=== PATIENT | male | born 1945 | race Caucasian/White ===

== ENCOUNTER 2018-09-26 08:19 | Inpatient (IN) ==
--- NOTE | 2018-09-26 09:28 | History & Physical Bridge Note ---
Date of Service September 26, 2018 History & Physical Bridge Note I have examined the patient, reviewed the History & Physical and in the interval since the performance of the History & Physical I have noted the following changes of clinical significance: no changes noted
--- NOTE | 2018-09-26 09:29 | Pre Anesthesia Assessment ---
Date of Service September 26, 2018 Pre Sedation Assessment Vital Signs Temp Pulse Resp BP Pulse Ox 09/26/18 09:11 36.4 C L 61 18 114/71 94 Cardiovascular RRR, no murmur, no edema + peripheral pulses normal Respiratory normal respiratory effort, lungs clear to auscultation Pre-Sedation Airway Assessment Smoking Status: Former smoker Hx Sleep Apnea: No Hx Difficult Intubation: No Short, Thick Neck: No Thyromental Distance: > or= 3.5 Finger Breadths Oral Cavity: + WNL Mallampati Class: II ASA: ASA2 Notes The planned sedation has been discussed with the patient. Informed Consent was obtained. I have identified the patient, determined the appropriateness of sedation and have assessed the patient immediately prior to the procedure. All medicine(s) and interventions are by my order.
[2018-09-26] MEDS ORDERED: SODIUM CHLORIDE 0.9% 1000ML 1,000 ML IV SCH (09:30)
[2018-09-26] MEDS ORDERED: MIDAZOLAM HCL 1 MG/ML 2ML VIAL IV STA (10:56)
[2018-09-26] MEDS ORDERED: LIDOCAINE 4% INH SOLN 4 ML BTL INFIL STA (10:56)
[2018-09-26] MEDS ORDERED: LEVALBUTEROL HCL 1.25 MG/3 ML NEB NEB STA (10:56)
[2018-09-26] MEDS ORDERED: LIDOCAINE HCL VISCOUS SOLN 2% 15 ML UDC EXT ONE (10:56)
[2018-09-26] MEDS ORDERED: OXYMETAZOLINE 0.05% 30 ML BTL ONE (10:56)
[2018-09-26] MEDS ORDERED: fentaNYL citrate 100 MCG/2 ML VIAL IV ONE (10:56)
[2018-09-26] MEDS ORDERED: LIDOCAINE HCL 2% (LOCAL) INJ 50 ML VIAL INFIL STA (10:56)
[2018-09-26] MEDS ORDERED: SODIUM CHLORIDE 0.9% 1,000 ML IV ONE (11:11)
--- NOTE | 2018-09-26 11:26 | Post Operative Brief Note ---
Immediate Post Op Note v1 Date of Surgery September 26, 2018 Pre & Post Diagnosis Operation Date: 09/26/18 09:00 Pre-Op Diagnosis: Pneumonia Post-Op Diagnosis: Pneumonia Procedure Operation Date: 09/26/18 09:00 Actual Procedures p Bronchoscopy Radiology(Bilateral) - Yovanny Viera MD Surgeon Yovanny Viera MD Mining Support Worker none Estimated Blood Loss 0 Findings Consistent with Post-Op Diagnosis pneumonitis Complications none Disposition Accompanied Patient To Recovery: No Overlapping Procedure I was present for: the critical portions of procedure. I was immediately available: during the entire case. Back up surgeon: was not required during procedure.
--- NOTE | 2018-09-26 11:26 | Post Anesthesia Assessment ---
Date of Service September 26, 2018 Post Sedation Assessment Vital Signs Temp Pulse Pulse Resp BP BP Pulse Ox 09/26/18 11:21 36.4 C L 58 L 20 104/60 99 09/26/18 11:05 56 L 18 96/59 L 97 09/26/18 11:00 56 L 18 95/53 L 97 09/26/18 10:55 55 L 18 88/54 L 99 09/26/18 10:50 60 16 100/72 97 09/26/18 10:45 55 L 16 107/70 98 09/26/18 10:40 59 L 18 150/82 H 98 09/26/18 10:30 60 18 139/88 98 09/26/18 09:11 36.4 C L 61 18 114/71 94 Recovery Score Activity: Moves 4 extremities Respiration: Deep Breath/Cough Circulation: +/-20% PreAnes Value Consciousness: Fully Awake Oxygen Saturation: O2 needed for >90% Post Anesthesia Score: 9 Discharge Sedation Level of Care: Higher Level of Care Post Sedation Plan On clinical assessment, the patient appears to have tolerated the sedation without complications. Patient is recovering as anticipated. Patient will continue to be monitored by nursing and may be discharged when meredith tion discharge criteria are met per below protocol. Upon Completions of procedure and additional 15 minutes continue every 5 minute vital signs and the P.A.R. score; then discharge to a Phase I or Fast Track to Phase II per the following guidelines: * Discharge Patient to appropriate Phase II area if PAR is 8 or greater or return to pre- procedure baseline. The post - procedure orders will be as directed. * If PAR score is less than 8 or not return to pre-procedure baseline then patient will follow Phase I monitoring till PAR is reached for Phase II. The Phase I may be done in procedure room or may call to secure a Phase I area. * If naloxone or flumazenil are used for reversal, hold in Phase I for continued monitoring from when last reversal dose was given for a minimum of 60 minutes or longer pending the nurse and/or physician discretion of patient condition before discharge to Phase II. Please call the Sedation Physician to re-evaluate and complete post-note for discharge to Phase II area. Do NOT discharge from procedure sedation or Phase 1 until post- sedation evaluation note is complete by procedure /sedation MD Sedation Discharge Instructions to be given to the patient at discharge to home.
--- NOTE | 2018-09-26 12:35 | Surgery Consultation ---
Date of Consultation September 26, 2018 Assessment & Plan (1) Shortness of breath: -pt. has abnormal CT scan with infiltrative changes noted most markedly on right side -discussed with Dr. Viera of pulmonary medicine -pt. had FOB earlier today and no clear etiology noted to explain abnormal CT scan or symptoms -we will proceed later today with RVATS and lung biopsy: -I discussed the risks, benefits and alternative with the patient nd his at bedside and they wish to proceed (I obtained consent from both the patient and his , as she is his POA and he received conscious sedation earlier for FOB) -risks include but are not limited to bleeding, infection, prolonged air leak, pneumothorax -benefits include obtaining a diagnosis -alternatives include continued medica therapy History of Present Illness Attending Physician: 73 year old male we are asked to see at the request of Dr Viera due to SOB. The pt. notes he has had worsening SOB for nearly 6 weeks. He notes no orthopnea, but feels more SOB with activity, but not at rest. No fevers, shakes, chills, or night sweats are noted. He notes a 6 pound weight loss over the past 4 weeks and notes his apatite is slightly decreased. He denies hemoptysis or hx. of DVT/PE. 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 He has been followed by Dr. Viera, and despite 2 courses of antibiotics, steroids, and the use of inhalers his symptoms continue to get worse. At the time of my interview and exam he was resting comfortably in bed. Allergies Allergy/AdvReac Type Severity Reaction Status Date / Time No Known Allergies Allergy Verified 09/26/18 08:58 Home Medications Home Medications Medication Instructions Recorded Confirmed Type Multi-Emmanuel 1 tab PO DAILY 09/22/18 09/26/18 History aspirin 81 mg PO DAILY 09/22/18 09/26/18 History atenolol 50 mg PO DAILY 09/22/18 09/26/18 History fluticasone furoate-vilanterol 1 inh INHALATION DAILY 09/22/18 09/26/18 History [Breo Ellipta] levothyroxine 100 mcg PO DAILY 09/22/18 09/26/18 History lisinopril-hydrochlorothiazide 1 tab PO DAILY 09/22/18 09/26/18 History simvastatin 20 mg PO HS 09/22/18 09/26/18 History triamcinolone acetonide [Nasacort] 2 spray INTRANASAL DAILY 09/22/18 09/26/18 History ipratropium-albuterol 3 ml INHALATION QID 09/26/18 09/26/18 History Patient History Medical History HTN (hypertension) (Acute) High cholesterol (Acute) Surgical History H/O arthroscopic knee surgery (Acute) right knee History of tonsillectomy (Acute) History of bilateral cataract extraction (Acute) History of carpal tunnel release of both wrists (Acute) Social History Preferred Language: Surinamese Communication Ability: Effective Beliefs That Will Affect Care: None Current Living Situation: Spouse Feels Safe at Home: Yes Smoking Status: Former smoker Second Hand Exposure: No Hx Alcohol Use: Yes Alcohol type: hard liquor Hx Substance Use: No Review of Systems Constitutional: + weight loss (6 pounds over last month--unintentional ); no fever, no chills and no fatigue Eyes: no diplopia Ear, Nose, Mouth, Throat: no ear pain and no tinnitus Respiratory: + dyspnea on exertion; no cough Cardiovascular: no chest pain with activity Gastrointestinal: no abdominal pain, no heartburn, no nausea and no vomiting Genitourinary: no dysuria Musculoskeletal: no back pain Integumentary: no rash Neurologic: no gait abnormality and no falls Psychiatric: no hopelessness Endocrine: no fatigue Hematologic / Lymphatic: no easy bleeding and no easy bruising Physical Exam Constitutional: WD/WN, vitals as above well developed and well nourished; no acute distress Eyes: PERRL, conjunctivae normal, anicteric sclerae ENMT: Ears: no hearing impairment and no external ear abnormality Neck: trachea midline, no thyromegaly Respiratory: normal respiratory effort and + respiratory distress slight decrease of BS noted at bases; no wheezing Cardiovascular: Rate/Rhythm: regular rate Gastrointestinal (Abdomen): Inspection/Auscultation: abdomen normal to inspection; abdomen not distended Musculoskeletal: no calf tenderness Skin: normal turgor; no jaundice Neurologic: no focal deficits noted Psychiatric: A+Ox3, euthymic affect Results & Data Vital Signs (Past 12 Hours) Vital Signs Temp Pulse Pulse Resp BP BP Pulse Ox 09/26/18 12:14 59 L 16 95/60 L 99 09/26/18 11:45 57 L 16 95/60 L 99 09/26/18 11:34 61 20 107/55 L 98 09/26/18 11:21 36.4 C L 58 L 20 104/60 99 09/26/18 11:05 56 L 18 96/59 L 97 09/26/18 11:00 56 L 18 95/53 L 97 09/26/18 10:55 55 L 18 88/54 L 99 09/26/18 10:50 60 16 100/72 97 09/26/18 10:45 55 L 16 107/70 98 09/26/18 10:40 59 L 18 150/82 H 98 09/26/18 10:30 60 18 139/88 98 09/26/18 09:11 36.4 C L 61 18 114/71 94
--- NOTE | 2018-09-26 13:56 | Anesthesiology Consultation ---
Date of Service September 26, 2018 Assessment & Plan (1) Encounter for pre-operative examination: Chart Review Chart Review: Acceptable Risk for Surgery History Surgery Operation Date: 09/26/18 08:50 Proposed Procedures p Right Video Assisted Thoracoscopy with Lung Biopsy - Corbin Estevez MD, FACS Operation Date: 09/26/18 09:00 Proposed Procedures p Bronchoscopy Radiology - Yovanny Viera MD Height/Weight Height: 5 ft 9 in Weight: 81.647 kg Allergies Allergy/AdvReac Type Severity Reaction Status Date / Time No Known Allergies Allergy Verified 09/26/18 08:58 Medications Home Medications Medication Instructions Recorded Confirmed Last Taken Multi-Emmanuel 1 tab PO DAILY 09/22/18 09/26/18 Unknown aspirin 81 mg PO DAILY 09/22/18 09/26/18 09/21/18 22:00 atenolol 50 mg PO DAILY 09/22/18 09/26/18 09/26/18 07:00 fluticasone furoate-vilanterol 1 inh INHALATION DAILY 09/22/18 09/26/18 09/24/18 07:00 [Breo Ellipta] levothyroxine 100 mcg PO DAILY 09/22/18 09/26/18 09/24/18 07:00 lisinopril-hydrochlorothiazide 1 tab PO DAILY 09/22/18 09/26/18 09/26/18 07:00 simvastatin 20 mg PO HS 09/22/18 09/26/18 09/25/18 22:00 triamcinolone acetonide [Nasacort] 2 spray INTRANASAL DAILY 09/22/18 09/26/18 09/24/18 22:00 ipratropium-albuterol 3 ml INHALATION QID 09/26/18 09/26/18 09/25/18 22:00 Active Medications Generic Name Dose Route Start Last Admin Trade Name Freq PRN Reason Stop Dose Admin Sodium Chloride 1,000 mls @ 15 mls/hr 09/26/18 09:30 09/26/18 09:37 Nss 1000ml IV 10/26/18 09:29 15 mls/hr .Q24H CINDY Administration NPO Date Last Intake of Fluids: 09/26/18 Time Last Intake of Fluids: 07:00 Date Last Intake of Solids: 09/25/18 Time Last Intake of Solids: 21:00 Past Medical History Medical History Cough HTN (hypertension) (Acute) High cholesterol (Acute) Past Surgical History Surgical History H/O arthroscopic knee surgery (Acute) right knee History of tonsillectomy (Acute) S/P bronchoscopy History of bilateral cataract extraction (Acute) History of carpal tunnel release of both wrists (Acute) Social History Smoking Status: Former smoker Do You Dip or Chew Tobacco: Yes Hx Alcohol Use: Yes Alcohol type: hard liquor alcohol intake frequency: a few times a month Hx Substance Use: No substance use type: does not use Physical Exam Vital Signs Last Vital Signs Temp 36.7 C 09/26/18 13:30 Pulse 59 L 09/26/18 13:30 Resp 18 09/26/18 13:30 BP 113/72 09/26/18 13:30 Pulse Ox 94 09/26/18 13:30 Testing Laboratory Results PET scan 09/25/18 1. Moderate to marked FDG uptake within extensive groundglass opacities throughout both lungs, more confluent within the right lower lobe. Scattered calcifications/hyperdense foci within these groundglass opacities. No change since CT of September 12, 2018. The stability argues against an infectious process. Bronchiectasis within the right lower lobe which may be related. The differential is broad and considerations include inflammatory processes, aspiration, chronic interstitial diseases and drug toxicity. A neoplastic process cannot be completely excluded although is considered less likely. 2. Minimal FDG uptake within right hilar and mediastinal lymph nodes which is nonspecific. Electrocardiogram Date: 09/26/18 NSR HR 60 with first degree AV block Other Testing Laboratory Tests 09/21/18 09/21/18 09/21/18 13:22 13:22 13:22 WBC 7.91 Hgb 15.1 Plt Count 227 PT 10.6 INR 1.0 APTT 27.6 Sodium 137 Potassium 4.1 Chloride 102 Carbon Dioxide 32 BUN 13 Creatinine 0.92 Glucose 98
[2018-09-26] MEDS ORDERED: ALBUT/IPRATROP 3MG/0.5MG NEB 3 ML VIAL NEB STA (14:11)
[2018-09-26] MEDS ORDERED: HYDROmorphone INJ 1 MG/ML SYRINGE IV PRN (14:34)
[2018-09-26] MEDS ORDERED: fentaNYL citrate 100 MCG/2 ML VIAL IV PRN (14:34)
[2018-09-26] MEDS ORDERED: ATROPINE SULFATE 0.1 MG/ML 10ML SYR IV PRN (14:34)
[2018-09-26] MEDS ORDERED: ePHEDrine sulfate 50 MG/ML AMP IV PRN (14:34)
[2018-09-26] MEDS ORDERED: ONDANSETRON INJ 2 MG/ML 2 ML VIAL IV PRN ×2 (14:34→18:16)
--- NOTE | 2018-09-26 14:37 | Post Operative Brief Note ---
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
[2018-09-26] MEDS ORDERED: LIDOCAINE HCL 2% 2 ML VIAL/AMP(20MG/ML) INFIL ONE (14:49)
[2018-09-26] MEDS ORDERED: ONDANSETRON INJ 2 MG/ML 2 ML VIAL ONE (14:49)
[2018-09-26] MEDS ORDERED: ROCURONIUM BROMIDE 10 MG/ML 5 ML VIAL ONE (14:49)
[2018-09-26] MEDS ORDERED: DEXAMETHASONE SOD INJ 4 MG/ML VIAL ONE (14:49)
[2018-09-26] MEDS ORDERED: PROPOFOL IV EMULSION 10 MG/ML 20 ML VIAL IV ONE (14:49)
[2018-09-26] MEDS ORDERED: fentaNYL citrate 100 MCG/2 ML VIAL ONE (14:50)
[2018-09-26] MEDS ORDERED: BUPIVACAINE 0.5 % 5 MG/1 ML MPF 30ML VIAL ONE (14:57)
[2018-09-26] MEDS ORDERED: BUPIVACAINE LIPOSOME 1.3% 266 MG/20 ML VIAL ONE (14:59)
[2018-09-26] MEDS ORDERED: SODIUM CHLORIDE 0.9% PF 50 ML VIAL ONE (14:59)
--- NOTE | 2018-09-26 15:19 | Post Operative Brief Note ---
Immediate Post Op Note v1 Date of Surgery September 26, 2018 Pre & Post Diagnosis Operation Date: 09/26/18 08:50 <No data on this case meets the specified criteria> Operation Date: 09/26/18 09:00 Pre-Op Diagnosis: Pneumonia Post-Op Diagnosis: Pneumonia Procedure Operation Date: 09/26/18 08:50 <No data on this case meets the specified criteria> Operation Date: 09/26/18 09:00 Actual Procedures p Bronchoscopy Radiology(Bilateral) - Yovanny Viera MD Surgeon Petey Viera MD Sieve Maker none Estimated Blood Loss 0 Findings Consistent with Post-Op Diagnosis
--- NOTE | 2018-09-26 15:44 | Operative Report ---
DATE OF OPERATION: 09/26/2018 PROCEDURE: Fiberoptic bronchoscopy with bronchoalveolar lavage. INDICATIONS: Diffuse right greater than left lung pneumonitis with hypoxemia. ANESTHESIA PREOPERATIVELY: None. ANESTHESIA DURING PROCEDURE: IV Versed 3 mg, IV fentanyl 50 mcg, 20 mL 2% Xylocaine spray above and below the cords, 4% viscous Xylocaine intranasally. Moderate conscious sedation was utilized and implemented at 1044 completed at 1055. DESCRIPTION OF PROCEDURE: Fiberoptic bronchoscope was inserted into the left naris with minimal difficulty and passed to the level of the true vocal cords. The cords appear to approximate normally with phonation without evidence of lesions or paralysis. The area was anesthetized with 2% Xylocaine spray and the scope was then introduced in the right and left tracheobronchial tree. The arden was sharp. The right main stem bronchus was explored initially and no endobronchial lesions were seen. Right upper lobe, the apical posterior and anterior segments, bronchus intermedius, right middle lobe, the medial lateral segments and all basilar segments were free of endobronchial lesions. No significant purulence was noted. Each lobar and segmental bronchus was copiously lavaged with normosol and the aspirate sent for appropriate studies. Left tracheobronchial tree showed similar findings with no endobronchial lesions seen, may be a mild degree of global inflammatory mucosal change was seen. Left upper lobe, the apical-posterior and anterior segments, lingular subdivision and left lower lobe were free of endobronchial lesions down to the subsegmental bronchi. Each lobar segment was copiously lavaged with normosol and the aspirate sent for appropriate studies. No biopsies were attempted. The procedure was terminated. The patient was given a nebulizer treatment with Xopenex 1.25 mg and was mildly hypertensive and given a fluid challenge with normal saline with improvement in patient's blood pressure to 100/60. No evidence for hypoxemia or additional hemodynamic instability was noted. The patient was transferred back to [facility], hemodynamically stable, no further signs of respiratory compromise. Will await microbiological and cytologic examination of the bronchial washings. OVERALL ASSESSMENT: Diffuse interstitial and alveolar infiltrate, right greater than left lung associated with hypoxemia. The patient was scheduled to maintain n.p.o. status and Dr. Corbin Estevez was consulted to consider a robotic video-assisted thorascopic surgery with biopsy peripherally from the right lung today in the afternoon and the patient will be admitted prior to the procedure and kept n.p.o. for that procedure. I attest to the content of the Intraoperative Record and any orders documented therein. Any exceptions are noted below. SURINDER
[2018-09-26] MEDS ORDERED: NEOSTIGMINE METHYLSULFATE 5 MG/5 ML SYR ONE (16:21)
[2018-09-26] MEDS ORDERED: ePHEDrine sulfate 50 MG/ML AMP ONE (16:21)
[2018-09-26] MEDS ORDERED: GLYCOPYRROLATE 0.2 MG/ML VIAL ONE (16:21)
[2018-09-26] MEDS ORDERED: PHENYLEPHRINE HCL 10 MG/ML VIAL ONE (16:21)
--- NOTE | 2018-09-26 16:27 | Post Operative Brief Note ---
Immediate Post Op Note v1 Date of Surgery September 26, 2018 Pre & Post Diagnosis Operation Date: 09/26/18 08:50 <No data on this case meets the specified criteria> Operation Date: 09/26/18 09:00 Pre-Op Diagnosis: Infiltrate of unknown etiology Post-Op Diagnosis: Infiltrate of unknown etiology Procedure Operation Date: 09/26/18 08:50 Right thoracoscopy with biopsy of RUL, RML, RLL Surgeon Corbin Estevez MD, FACS Product Safety Coordinator Sarah VELA Estimated Blood Loss 11 Findings Consistent with Post-Op Diagnosis
--- NOTE | 2018-09-26 16:28 | Post Operative Brief Note ---
Immediate Post Op Note v1 Date of Surgery September 26, 2018 Pre & Post Diagnosis Operation Date: 09/26/18 08:50 <No data on this case meets the specified criteria> Operation Date: 09/26/18 09:00 Pre-Op Diagnosis: Pneumonia Post-Op Diagnosis: Pneumonia Procedure Operation Date: 09/26/18 08:50 <No data on this case meets the specified criteria> Operation Date: 09/26/18 09:00 Actual Procedures p Bronchoscopy Radiology(Bilateral) - Yovanny Viera MD Surgeon Corbin Estevez MD, FACS Mobile Solutions Architect none Estimated Blood Loss 0 Findings Consistent with Post-Op Diagnosis
[2018-09-26] MEDS ORDERED: CEFAZOLIN 250 MG/ML 1 GM VIAL ONE (16:31)
[2018-09-26] MEDS ORDERED: METOCLOPRAMIDE HCL INJ 5 MG/ML 2 ML VIAL IV ONE (16:45)
--- NOTE | 2018-09-26 17:00 | XRay Report ---
XR chest 1V portable HISTORY: Lung biopsy. Postop. COMPARISON: PET CT 09/25/2018. FINDINGS: Right-sided chest tube terminates in the right lung apex. Right chest wall subcutaneous emp hysema. Tiny right apical pneumothorax is noted. Peripheral and basilar airspace opacities, right gre ater than left persists. This is similar to the prior study. The heart remains mildly enlarged. No de finite pleural effusions. IMPRESSION: 1. Right chest tube terminates in the right lung apex. There is a tiny right apical pneumothorax. 2. Bilateral airspace opacities persist. Electronically signed by: Thanh Naqvi M.D. 09/26/2018 4:59 PM
[2018-09-26] MEDS ORDERED: METOCLOPRAMIDE HCL INJ 5 MG/ML 2 ML VIAL ONE (17:09)
--- NOTE | 2018-09-26 17:20 | Anesthesiology Progress Note ---
Date of Service September 26, 2018 Anesthesia Post Procedure Vital Signs Vital Signs: Temp Pulse Pulse Pulse Resp BP BP 09/26/18 17:15 72 18 109/59 L 09/26/18 17:05 70 21 112/62 09/26/18 16:55 82 16 121/78 09/26/18 16:47 36.1 C L 84 25 H 134/78 09/26/18 14:41 60 16 09/26/18 13:30 36.7 C 59 L 18 113/72 09/26/18 13:00 36.5 C 59 L 20 122/62 09/26/18 12:14 59 L 16 95/60 L 09/26/18 11:45 57 L 16 95/60 L 09/26/18 11:34 61 20 107/55 L 09/26/18 11:21 36.4 C L 58 L 20 104/60 09/26/18 11:05 56 L 18 96/59 L 09/26/18 11:00 56 L 18 95/53 L 09/26/18 10:55 55 L 18 88/54 L 09/26/18 10:50 60 16 100/72 09/26/18 10:45 55 L 16 107/70 09/26/18 10:40 59 L 18 150/82 H 09/26/18 10:30 60 18 139/88 09/26/18 09:11 36.4 C L 61 18 114/71 Pulse Ox 09/26/18 17:15 100 09/26/18 17:05 99 09/26/18 16:55 99 09/26/18 16:47 100 09/26/18 14:41 94 09/26/18 13:30 94 09/26/18 13:00 100 09/26/18 12:14 99 09/26/18 11:45 99 09/26/18 11:34 98 09/26/18 11:21 99 09/26/18 11:05 97 09/26/18 11:00 97 09/26/18 10:55 99 09/26/18 10:50 97 09/26/18 10:45 98 09/26/18 10:40 98 09/26/18 10:30 98 09/26/18 09:11 94 Pain Intensity Right Chest: Pain Intensity: 0 Transfer of Care Handoff Completed per policy Notes Mental Status: alert / awake / arousable and participated in evaluation Patient Amnestic to Procedure: Yes Nausea / Vomiting: adequately controlled Pain: adequately controlled Airway Patency, RR, SpO2: stable & adequate BP & HR: stable & adequate Hydration State: stable & adequate Anesthetic Complications: no major complications apparent and Pt Satisfied with anesthetic care
--- NOTE | 2018-09-26 17:45 | Consultation ---
Date of Consultation September 26, 2018 Assessment & Plan (1) Bilateral pneumonia: (2) S/P bronchoscopy: This is a 73yo M with a PMH of multilobar pneumonia, HTN, hypothyroidism and HLD who underwent bronchoscopy and then thoracoscopy with biopsy earlier today. -Recovering well on the floor -Oxygen saturation of 98% on 2L NC -Pending work-up: Aspergillus, CMV, HSV, Aero/bradford culture, AFB smear, bronch wash gram stain, Fungal/yeast cultures -Leigh LIEBERMAN -Pulmonology as primary service, thoracic surgery also on board (3) Hypothyroidism: Continue levothyroxine (4) HTN (hypertension): Continue atenolol with hold parameters -Hold lisinopril/hctz tomorrow due to NPO status today -Reassess volume status in AM (5) HLD (hyperlipidemia): Statin HS PCP: Dwaine Dispo: Per primary service Patient seen in collaboration with Dr. Cassidy. Please see addendum. Will be followed by Dr. Dominguez for remainder of admission. Supervising Physician Co-Signing Physician Notes Patient is a 73-year-old male with history of hypertension, hypothyroidism, hyperlipidemia who underwent elective bronchoscopy, followed by thoracoscopy with biopsy was seen and examined after the procedure. Patient has progressively worsening shortness of breath, cough since 6 weeks duration. Despite receiving antibiotics patient's symptoms did not resolve. PET scan done last month showed moderate to marked FDG uptake within extensive groundglass opacities throughout both lungs, more within the right lower lobe. Also noted minimal FDG uptake within the right hilar and mediastinal lymph nodes. On further recommendations from pulmonology Dr. Viera, patient underwent bronchoscopy followed by thorough colonoscopy with biopsy by . Patient admits to losing about 6 pounds in the last 1 to 2 months. Patient had a chest tube placement. Chest x-ray after chest tube placement showed a right apical pneumothorax. On exam patient is moderately built and nourished, normocephalic atraumatic, no distress, lungs-decreased breath sounds, bilateral crackles, chest -right chest tube in place, S1-S2, no murmur, abdomen soft nontender, grossly no focal neurological deficits, no pedal edema. Continue continuous oxygen. Nebs. Repeat chest x-ray in a.m. Follow-up bronchial lavage studies, pathology. Further management based on the results. I personally reviewed the record. Patient is interviewed and examined at bedside. Patient's care is coordinated with Erika Amor PA-C. Please refer to the documentation above for details of patient's presentation and for discussion of other issues. History of Present Illness Reason for Consultation: Medical management Attending Physician: Corbin Estevez MD, FACS History of Present Illness This is a 73yo M with a PMH of multilobar pneumonia, HTN, hypothyroidism and HLD who underwent a bronchoscopy and then thoracoscopy with biopsy earlier today. Has been experiencing progressive shortness of breath x 6 weeks and has been requiring 2L O2 at home since Tuesday. Has also had a productive cough with clear/white sputum. Was seen by Dr. Viera in clinic last week and has completed 2 courses of abx, steroids and inhalers but symptoms persist. Had a CT chest without contrast on 09/15/18 that showed bilateral pu lmonary infiltrates, R>L. During bronchoscopy today by Dr. Viera, diffuse interstitial alveolar infiltrates were seen in R > L lung and was kept NPO for thorascopic biopsy by Dr. Estevez this afternoon. Denies fever, chills, night sweats or hemoptysis. Endorses 6 pound weight loss over past month. No headache, lightheadedness, chest pain, abdominal pain, nausea, vomiting, dysuria, constipation or diarrhea. Allergies Allergy/AdvReac Type Severity Reaction Status Date / Time No Known Allergies Allergy Verified 09/26/18 08:58 Home Medications Home Medications Medication Instructions Recorded Confirmed Type Multi-Emmanuel 1 tab PO DAILY 09/22/18 09/26/18 History aspirin 81 mg PO DAILY 09/22/18 09/26/18 History atenolol 100 mg PO DAILY 09/22/18 09/26/18 History fluticasone furoate-vilanterol 1 inh INHALATION DAILY 09/22/18 09/26/18 History [Breo Ellipta] levothyroxine 100 mcg PO DAILY 09/22/18 09/26/18 History lisinopril-hydrochlorothiazide 1 tab PO DAILY 09/22/18 09/26/18 History simvastatin 20 mg PO HS 09/22/18 09/26/18 History triamcinolone acetonide [Nasacort] 2 spray INTRANASAL DAILY 09/22/18 09/26/18 History ipratropium-albuterol 3 ml INHALATION QID 09/26/18 09/26/18 History Patient History Medical History Hypothyroidism (Chronic) HLD (hyperlipidemia) (Chronic) HTN (hypertension) (Chronic) Surgical History S/P bronchoscopy (Resolved) H/O arthroscopic knee surgery (Chronic) right knee History of carpal tunnel release of both wrists (Chronic) History of tonsillectomy (Chronic) History of bilateral cataract extraction (Chronic) Family History Other Heart disease Stroke Social History Preferred Language: Occitan Communication Ability: Effective 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 Physical Exam Physical Exam: General Appearance: WD/WN, no apparent distress, resting comfortably Head: normocephalic, atraumatic Eyes: normal inspection, PERRL, EOMI ENT: hearing grossly normal, pharynx normal (dry mucous membranes) Neck: supple, no JVD, no adenopathy Respiratory/Chest: Bibasilar crackles, decreased breath sounds throughout. No wheezes or rhonci noted. No respiratory distress or accessory muscle use. Saturating at 98% on 2L NC Cardiovascular: regular rate, rhythm, no murmur, normal peripheral pulses Abdomen/GI: normal bowel sounds, soft, non-tender to palpation Extremities/Musculoskelatal: normal inspection, no calf tenderness, normal capillary refill, no pedal edema Neurologic/Psych: alert, normal mood/affect, oriented x 3 Skin: normal color, warm/dry Results & Data Vital Signs (Past 12 Hours) Vital Signs Temp Pulse Pulse Pulse Resp BP BP 09/26/18 17:35 36.4 C L 68 21 126/72 09/26/18 17:25 68 18 112/65 09/26/18 17:15 72 18 109/59 L 09/26/18 17:05 70 21 112/62 09/26/18 16:55 82 16 121/78 09/26/18 16:47 36.1 C L 84 25 H 134/78 09/26/18 14:41 60 16 09/26/18 13:30 36.7 C 59 L 18 113/72 09/26/18 13:00 36.5 C 59 L 20 122/62 09/26/18 12:14 59 L 16 95/60 L 09/26/18 11:45 57 L 16 95/60 L 09/26/18 11:34 61 20 107/55 L 09/26/18 11:21 36.4 C L 58 L 20 104/60 09/26/18 11:05 56 L 18 96/59 L 09/26/18 11:00 56 L 18 95/53 L 09/26/18 10:55 55 L 18 88/54 L 09/26/18 10:50 60 16 100/72 09/26/18 10:45 55 L 16 107/70 09/26/18 10:40 59 L 18 150/82 H 09/26/18 10:30 60 18 139/88 09/26/18 09:11 36.4 C L 61 18 114/71 Pulse Ox 09/26/18 17:35 97 09/26/18 17:25 92 09/26/18 17:15 100 09/26/18 17:05 99 09/26/18 16:55 99 09/26/18 16:47 100 09/26/18 14:41 94 09/26/18 13:30 94 09/26/18 13:00 100 09/26/18 12:14 99 09/26/18 11:45 99 09/26/18 11:34 98 09/26/18 11:21 99 09/26/18 11:05 97 09/26/18 11:00 97 09/26/18 10:55 99 09/26/18 10:50 97 09/26/18 10:45 98 09/26/18 10:40 98 09/26/18 10:30 98 09/26/18 09:11 94 Diagnostic Findings CXR: IMPRESSION: 1. Right chest tube terminates in the right lung apex. There is a tiny right apical pneumothorax. 2. Bilateral airspace opacities persist.
[2018-09-26] MEDS ORDERED: MoRPHine SULFATE 2 MG/ML CARP IV PRN (18:16)
[2018-09-26] MEDS: LACTATED RINGER'S 1,000 ML IV SCH (18:58)
[2018-09-26] MEDS: ALBUT/IPRATROP 3MG/0.5MG NEB 3 ML VIAL INH SCH ×2 (19:16→19:19)
[2018-09-26] MEDS: DOCUSATE SODIUM 100 MG CAP PO SCH (20:12)
[2018-09-26] MEDS: SIMVASTATIN 20 MG TAB PO SCH (20:12)
[2018-09-26] MEDS: D5W AND 1/2NSS 1,000 ML IV SCH (20:12)
[2018-09-26] MEDS: METOCLOPRAMIDE HCL INJ 5 MG/ML 2 ML VIAL IV SCH (20:13)
--- NOTE | 2018-09-26 21:26 | Consultation Report ---
DATE OF CONSULTATION: 09/26/2018 PULMONARY MEDICINE CONSULTATION REASON FOR CONSULTATION: Diffuse interstitial pneumonitis with hypoxemia. HISTORY OF PRESENT ILLNESS: A 73-year-old pleasant white male who was initially referred to me by Merlene Vital PA-C with the [facility] for pulmonary evaluation. I saw the patient in consultation on 09/21/2018. The patient was accompanied by his . He had been in excellent health but states this winter specifically late March/April he developed an upper respiratory infection that did not call for him to require hospitalization, but left him with a chronic cough and eventual progressive symptoms of dyspnea, especially with exertion. 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 He felt he inhaled a great deal of coal dust and sand from that exposure over 3 decades. He has had no significant travel history outside the country and especially within the last 6 months. For the past 2 weeks his appetite has been poor and he has lost 4 pounds. He denies night sweats, chills, or even sweats during the day or fever. He has been taking shallow frequent breaths and notes exertional dyspnea when carrying laundry up stairs or walking up the grade. He has been fairly sedentary for the past several months and is no longer interested in performing any house projects because of the dyspnea. No pleuritic pain or hemoptysis or chest trauma noted. He has no obvious tuberculosis exposure. They have a cat in the house and he finds he is easily exhausted with minimal activity. He has tried Nasacort p.r.n. for allergy symptoms, also Claritin. In the spring he has a cough and nasal congestion with rhinorrhea and is often noted to be clearing his throat. The cough often interrupts his sleep. He has been on lisinopril for many years but that was discontinued because of the cough. He dates back flu symptoms in late March and has been ill ever since. He at one point was prescribed a short prednisone taper by his provider on 08/29/2018 over 10 days with a course of doxycycline and Tessalon Perles. 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 They have 2 children who live in [place] and the other in [place]. He has a limited smoking history from [id number] a pack a day and denies illicit drug use. A chest x-ray when initially ordered and followed up with CT scan of the chest on 09/15/2018 showed extensive consolidation with air bronchograms throughout the right lower lobe, especially in the lateral segment of the right middle lobe with patchy consolidation in the left upper lobe, especially towards the periphery in the left lower lobe. No pleural effusion or obvious lymphadenopathy was seen. Coronary artery calcification was seen as well. He denies arthropathy or arthralgias and has had carpal tunnel repair bilaterally by an orthopedist [place] [facility] as well as cataract surgery at the [facility]. No skin rashes have been noted. He was found to be hypoxemic in the office and prescribed oxygen at 2 liters continually. PAST MEDICAL HISTORY: Pertinent for allergic rhinitis, dyslipidemia and hypertension. SOCIAL HISTORY: Limited former smoking history. MEDICATIONS: Aspirin 81 mg daily, atenolol 50 mg 2 tablets daily, Tessalon Perles 100 mg t.i.d. p.r.n., ketaconazole 2% external shampoo, previous course of levofloxacin and levothyroxine 100 mcg daily, lisinopril/hydrochlorothiazide 10/12.5 mg 1 tablet daily, multivitamins daily, Nasacort AQ 2 inhalations daily and simvastatin 20 mg daily. ALLERGIES: He has no known drug allergies. PHYSICAL EXAMINATION: GENERAL: Reveals well-developed, well-nourished white male appearing stable at rest. CURRENT VITAL SIGNS: Stable. SKIN: Without lesion. HEENT: Atraumatic, normocephalic, PERRLA, EOMI. Conjunctivae pink. Sclerae nonicteric. Fundi poorly visualized. NECK: Neck veins are not distended at 45 degrees. No adenopathy in the supra or infraclavicular areas. LUNGS: Some fine rales at both bases which sound old Velcro sounding with ? egophony right base. CARDIAC: Regular rate and rhythm. I do not appreciate a gallop. ABDOMEN: Soft, protuberant. No evidence of hepatosplenomegaly. EXTREMITIES: No pedal edema, clubbing or cyanosis. NEUROLOGIC: Intact. No lateralizing signs. LABORATORY DATA: A cryptococcal antigen as an outpatient negative. CBC diff showed an H and H 15 and 42.7, slightly hyperchromic indices, white count was 7900, 71% polymorphonuclear leukocytes, 18% lymphocytes, 3.2% eosinophils. There was some metamyelocytes and promyelocytes in the periphery. Sed rate 71 mm/hour. Total protein elevated at 8.5 g/dL with a globulin fraction elevated. IgG level 1130 mg per deciliter. PET CT scan done on 09/25/2018 shows moderate to marked FDG uptake with an extensive ground-glass opacities throughout both lungs, more confluent within the right lower lobe. Scattered calcifications/hyperdense foci within these ground-glass opacities, no change in the CT scan from 09/12/2018. Bronchiectasis within the right lower lobe. A 6-minute walk showed significant desaturations to 86%. The patient was placed on oxygen at 2 liters. OVERALL ASSESSMENT: A 73-year-old with a progressive ground-glass and consolidative changes more towards the periphery right greater than left lung associated with hypoxemia, chronic cough and generalized weakness. PLAN: Bronchoscopy with BAL and I spoke with Dr. Corbin Estevez/Thoracic Surgery. We will keep patient n.p.o. and we will undergo robotic video-assisted thorascopic surgery with biopsy today for more definitive diagnosis. The patient was admitted onto the [facility] service pending workup at least overnight and kept in respiratory isolation as well. SURINDER
[2018-09-26] MEDS: ACETAMINOPHEN 1,000 MG/100 ML VIAL IV SCH (21:29)
--- NOTE | 2018-09-26 23:40 | Operative Report ---
DATE OF OPERATION: 09/26/2018 DATE OF PROCEDURE: 09/26/2018 PREOPERATIVE DIAGNOSIS: Pulmonary infiltrates, unknown etiology. POSTOPERATIVE DIAGNOSIS: Pulmonary infiltrates, unknown etiology. PROCEDURE: Right thoracoscopy with biopsy of right lower lobe, right middle lobe and right upper lobe. SURGEON: Corbin Estevez MD LEGAL FINANCIAL SPECIALIST: MIRIAN Kong (Mr. Das was present for the entire case). ANESTHESIA: General anesthesia with endotracheal intubation with single lumen tube. SPECIFICS OF PROCEDURE AND FINDINGS: Humble Patino is a 73-year-old male followed by Dr. Petey Viera who brought him in for a bronchoscopy to workup pulmonary infiltrates and cough and he was found to be hypoxic. Dr. Viera was concerned and called me and asked if we could do a thoracoscopic biopsy today. We put him on for this afternoon. On 09/26/2018, the patient underwent an uncomplicated right thoracoscopy. We made two 5 mm incisions, a single 12 mm incision and wedged out three portions of the right lung for histology and cultures. Gram stain was negative for organisms of the middle lobe. A chest tube is in place. We did an Exparel block. He tolerated it well. He was extubated in the room. PROCEDURE: The patient brought to operating room and laid in supine position. General anesthesia induced and endotracheal intubation was performed with single lumen tube. The patient was turned to left lateral decubitus position, right chest prepped and draped in usual sterile fashion. After appropriate timeout had been called and antibiotics given, a single 5 mm incision was made just posterior to the scapula after we had anesthetized it with Exparel and 20 mL of fluid, 30 mL of 0.5% Marcaine and 250 mL of normal saline. We then injected this into our 3 port sites and then did an intercostal block from the 2nd to the 11th rib under thoracoscopic guidance intrathoracically. After injecting the posterior area, we made a small 5 mm incision and the 5 mm port was placed. A 5 mm, 30-degree scope was placed. We could see there were no adhesions, but the lung was grossly abnormal. Another 5 mm scope was placed anterior to the latissimus dorsi muscle higher than the tip of the scapula and then a 12 mm incision was made bit anterior to the mid axillary line couple interspaces above the diaphragm. Carbon dioxide was then insufflated and lower tidal volumes were used. Upon entering the chest, we then grasped a portion of the middle lobe and removed a good size portion. Part of this was cut and sent for Gram stain and the other was sent for frozen section. We had no bleeding or air leak from this. We then took a segment of the lower lobe in a similar fashion and the upper lobe. Frozen section of the middle lobe came back as grossly abnormal, but did not appear malignant. The Gram stain showed had no organisms. A 24-Belarusian chest tube was placed through the inferior most port directed towards the apex, held in place with heavy silk suture. A 4-0 Monocryl was used in running subcuticular fashion to approximate the wound edges. He tolerated it well. I attest to the content of the Intraoperative Record and any orders documented therein. Any exceptions are noted below. SURINDER
[2018-09-27] MEDS: OXYCODONE HCL IR 5 MG TAB (IMMEDIATE RELEASE) PO PRN ×3 (01:24→21:34)
[2018-09-27] MEDS: METOCLOPRAMIDE HCL INJ 5 MG/ML 2 ML VIAL IV SCH ×2 (01:24→10:26)
[2018-09-27 05:51] LABS: Hematocrit (blood only) 34.9 % (42-52); Hemoglobin 12.4 g/dL (14.0-18.0); Mean Corpuscular Hgb Conc 35.5 g/dL (32-36); Mean Corpuscular Volume 99.1 fL (80-100); Mean Platelet Volume 8.8 fL (7.4-10.4); Platelet Count 249 K/uL (130-400); RDW Coefficient of Variation 12.7 % (11.5-14.5); RDW Standard Deviation 46.1 fL (36.4-46.3); Red Blood Count 3.52 M/uL (4.7-6.1)
[2018-09-27] MEDS: D5W AND 1/2NSS 1,000 ML IV SCH ×2 (05:51→15:32)
[2018-09-27] MEDS: ACETAMINOPHEN 1,000 MG/100 ML VIAL IV SCH ×3 (05:52→21:33)
[2018-09-27] MEDS: LEVOTHYROXINE SODIUM 100 MCG TABLET PO SCH (05:52)
[2018-09-27 06:11] LABS: INR 1.1 (0.9-1.1); Prothrombin Time 11.1 Seconds (9.0-12.0)
[2018-09-27 06:26] LABS: BUN Creatinine Ratio 13.8 (10-20); Calcium 8.7 mg/dl (8.5-10.1); Creatinine Clr Calc Pharmacy 78.8 ml/min; Est GFR (African American) 101.1; Est GFR (Non-African American) 87.2
--- NOTE | 2018-09-27 07:04 | XRay Report ---
XR chest 1V portable HISTORY: 73 years-old Male lung bx follow-up study in a patient with right lung biopsy COMPARISON: Chest radiograph 09/26/2018 TECHNIQUE: Portable AP view of the chest FINDINGS: Chest tube terminates adjacent to the right lung apex. Postoperative changes of the right lung. Sligh tly decreased subcutaneous emphysema. Tiny right atypical pneumothorax is unchanged. Cardiomegaly. De creased bilateral airspace opacities. No large pleural effusion or overt pulmonary edema. Degenerativ e changes of the shoulders and spine. IMPRESSION: 1. Postoperative changes of the right lung with stable positioning of the right-sided chest tube. 2. Unchanged tiny right apical pneumothorax. 3. Decreased bilateral airspace opacities. The above report was generated using voice recognition software. It may contain grammatical, syntax o r spelling errors. Electronically signed by: Juan Guan M.D. 09/27/2018 7:03 AM
[2018-09-27] MEDS: ALBUT/IPRATROP 3MG/0.5MG NEB 3 ML VIAL INH SCH ×4 (07:12→19:14)
--- NOTE | 2018-09-27 07:21 | Anesthesiology Progress Note ---
Date of Service September 27, 2018 Anesthesia Post Procedure Vital Signs Vital Signs: Temp Pulse Pulse Pulse Pulse Resp BP 09/27/18 07:19 36.6 C 66 16 09/27/18 07:12 65 14 09/27/18 06:01 09/27/18 05:33 36.6 C 61 16 09/27/18 04:15 36.3 C L 64 16 09/27/18 01:37 36.6 C 66 16 09/27/18 01:10 72 09/26/18 23:43 36.7 C 65 16 09/26/18 22:05 37.1 C 75 16 09/26/18 21:12 37.0 C 74 18 09/26/18 20:00 36.4 C L 83 18 09/26/18 19:20 74 16 09/26/18 19:05 37.0 C 68 18 09/26/18 18:41 69 18 09/26/18 18:26 36.6 C 68 18 09/26/18 17:45 69 18 09/26/18 17:35 36.4 C L 68 21 09/26/18 17:25 68 18 09/26/18 17:15 72 18 09/26/18 17:05 70 21 09/26/18 16:55 82 16 09/26/18 16:47 36.1 C L 84 25 H 09/26/18 14:41 60 16 09/26/18 13:30 36.7 C 59 L 18 09/26/18 13:00 36.5 C 59 L 20 09/26/18 12:14 59 L 16 09/26/18 11:45 57 L 16 09/26/18 11:34 61 20 09/26/18 11:21 36.4 C L 58 L 20 09/26/18 11:05 56 L 18 09/26/18 11:00 56 L 18 09/26/18 10:55 55 L 18 09/26/18 10:50 60 16 09/26/18 10:45 55 L 16 09/26/18 10:40 59 L 18 09/26/18 10:30 60 18 09/26/18 09:11 36.4 C L 61 18 114/71 BP Pulse Ox 09/27/18 07:19 102/64 98 09/27/18 07:12 97 09/27/18 06:01 94 09/27/18 05:33 104/56 L 96 09/27/18 04:15 105/67 97 09/27/18 01:37 92/57 L 95 09/27/18 01:10 96 09/26/18 23:43 107/63 96 09/26/18 22:05 96/60 L 95 09/26/18 21:12 115/66 94 09/26/18 20:00 121/74 96 09/26/18 19:20 95 09/26/18 19:05 114/65 97 09/26/18 18:41 129/75 99 09/26/18 18:26 119/73 96 09/26/18 17:45 112/70 98 09/26/18 17:35 126/72 97 09/26/18 17:25 112/65 92 09/26/18 17:15 109/59 L 100 09/26/18 17:05 112/62 99 09/26/18 16:55 121/78 99 09/26/18 16:47 134/78 100 09/26/18 14:41 94 09/26/18 13:30 113/72 94 09/26/18 13:00 122/62 100 09/26/18 12:14 95/60 L 99 09/26/18 11:45 95/60 L 99 09/26/18 11:34 107/55 L 98 09/26/18 11:21 104/60 99 09/26/18 11:05 96/59 L 97 09/26/18 11:00 95/53 L 97 09/26/18 10:55 88/54 L 99 09/26/18 10:50 100/72 97 09/26/18 10:45 107/70 98 09/26/18 10:40 150/82 H 98 09/26/18 10:30 139/88 98 09/26/18 09:11 94 Pain Intensity Right Chest: Pain Intensity: 3 Notes Mental Status: alert / awake / arousable and participated in evaluation Nausea / Vomiting: adequately controlled Pain: adequately controlled Airway Patency, RR, SpO2: stable & adequate BP & HR: stable & adequate Hydration State: stable & adequate
[2018-09-27] MEDS ORDERED: ATENOLOL 50 MG TABLET PO SCH (09:00)
[2018-09-27] MEDS: ENOXAPARIN INJ 40 MG/0.4 ML SYR SQ SCH (09:14)
[2018-09-27] MEDS: ATENOLOL 50 MG TABLET PO SCH (09:15)
[2018-09-27] MEDS: DOCUSATE SODIUM 100 MG CAP PO SCH ×2 (09:15→21:22)
[2018-09-27] MEDS: TRIAMCINOLONE ACET NASAL SPRAY 10.8ML BTL SCH (09:15)
[2018-09-27] MEDS: ASPIRIN 81 MG CHEW PO SCH (09:15)
[2018-09-27] MEDS: LISINOPRIL 10 MG TAB PO SCH (09:15)
[2018-09-27] MEDS: MULTIVITAMIN TAB PO SCH (09:16)
[2018-09-27] MEDS: LACTATED RINGER'S 1,000 ML IV SCH (14:45)
--- NOTE | 2018-09-27 15:17 | Hospitalist Progress Note ---
Date of Service September 27, 2018 Assessment & Plan (1) Bilateral pneumonia: Received antibiotic as an outpatient Currently afebrile and not getting any antibiotic Has bibasilar fibrosis/infiltration Was evaluated by test man and underwent bronchoscopy and thoracoscopy with biopsy (2) S/P bronchoscopy: This is a 73yo M with a PMH of multilobar pneumonia, HTN, hypothyroidism and HLD who underwent bronchoscopy and then thoracoscopy with biopsy earlier today. POD #1, status post bronchoscopy and thoracoscopy with lung biopsy -Pending work-up: Aspergillus, CMV, HSV, Aero/bradford culture, AFB smear, bronch wash gram stain, Fungal/yeast cultures -[facility] -Appreciate pulmonary and thoracic surgery input -Has thoracotomy tube in place and draining serosanguineous fluid (3) Hypothyroidism: Continue levothyroxine (4) HTN (hypertension): Continue atenolol with hold parameters -Hold lisinopril/hctz tomorrow due to NPO status today -Reassess volume status in AM (5) HLD (hyperlipidemia): Statin HS PCP: Dwaine Dispo: Per primary service Patient seen in collaboration with Dr. Cassidy. Please see addendum. Subjective 09/27 The patient was seen and examined in medical floor Patient is a 73-year-old male with history of hypertension, hypothyroidism, hyperlipidemia who underwent elective bronchoscopy, followed by thoracoscopy with biopsy was seen and examined after the procedure. Has been complaining of pain at the chest tube insertion site Denies any increasing shortness of breath at rest Denies any nausea and/or vomiting Review of Systems Review of Systems: All systems reviewed and are unremarkable except as noted Constitutional: no fever and no chills Respiratory: + pain on inspiration and + pain with cough Gastrointestinal: no abdominal pain, no belching and no bloating Neurologic: + generalized weakness Physical Exam Physical Exam: Sitting on a chair with some discomfort Constitutional: well developed, well nourished and + ill appearing Eyes: PERRL, conjunctivae normal, anicteric sclerae ENMT: external ear and nose normal, oropharynx normal Neck: trachea midline, no thyromegaly Respiratory: normal respiratory effort; no respiratory distress Auscultation: + diminished lung sounds and + crackles (Bilateral bases more on the right) Has right-sided chest tube in situ Cardiovascular: Rate/Rhythm: regular rate and regular rhythm Heart Sounds: no murmur Gastrointestinal (Abdomen): Inspection/Auscultation: abdomen normal to inspection and normal bowel sounds Percussion/Palpation: abdomen soft Musculoskeletal: No acute arthritis Lymphatic: no cervical or axillary lymphadenopathy Results & Data Vital Signs (Past 12 Hours) Vital Signs Temp Pulse Pulse Resp BP Pulse Ox 09/27/18 14:00 36.7 C 67 16 105/65 93 09/27/18 11:13 69 14 96 09/27/18 10:27 36.9 C 67 18 117/71 97 09/27/18 07:19 36.6 C 66 16 102/64 98 09/27/18 07:12 65 14 97 09/27/18 06:01 94 09/27/18 05:33 36.6 C 61 16 104/56 L 96 09/27/18 04:15 36.3 C L 64 16 105/67 97 Laboratory Results Short CBC 09/27/18 Range/Units 05:22 WBC 7.80 (4.8-10.8) K/uL Hgb 12.4 L (14.0-18.0) g/dL Hct 34.9 L (42-52) % Plt Count 249 (130-400) K/uL BMP 09/27/18 05:22 Sodium 137 Potassium 4.0 Chloride 102 Carbon Dioxide 31 BUN 12 Creatinine 0.86 Glucose 134 H Calcium 8.7 Medications Administered Current Inpatient Medications Albuterol (Duoneb) 3 ml INH QIDR [facility] Stop: 10/26/18 18:15 Last Admin: 09/27/18 11:13 Dose: 3 ml Documented by: Aspirin (Aspirin Chew) 81 mg PO DAILY [facility] Stop: 10/27/18 08:59 Last Admin: 09/27/18 09:15 Dose: 81 mg Documented by: Atenolol (Tenormin) 100 mg PO DAILY [facility] Stop: 10/27/18 08:59 Last Admin: 09/27/18 09:15 Dose: 100 mg Documented by: Docusate Sodium (Colace) 100 mg PO BID [facility] Stop: 10/26/18 20:59 Last Admin: 09/27/18 09:15 Dose: 100 mg Documented by: Enoxaparin Sodium (Lovenox) 40 mg SQ QAM [facility] Stop: 10/27/18 08:59 Last Admin: 09/27/18 09:14 Dose: 40 mg Documented by: Lactated Ringer's (Lr) 1,000 mls @ 15 mls/hr IV .Q24H [facility] Stop: 10/26/18 14:14 Last Admin: 09/27/18 14:45 Dose: Not Given Documented by: Acetaminophen (Ofirmev) 1,000 mg in 100 mls @ 400 mls/hr IV Q8 [facility] Stop: 10/26/18 21:59 Last Infusion: 09/27/18 14:45 Dose: Infused Documented by: Dextrose/Sodium Chloride (D5w And 1/2nss) 1,000 mls @ 100 mls/hr IV .Q10H [facility] Stop: 10/26/18 18:15 Last Infusion: 09/27/18 14:45 Dose: 100 mls/hr Documented by: Levothyroxine Sodium (Synthroid) 100 mcg PO DAILYBB COUNTS INCLUDE 234 BEDS AT [facility] Stop: 10/27/18 06:29 Last Admin: 09/27/18 05:52 Dose: 100 mcg Documented by: Lisinopril (Zestril) 10 mg PO QAM COUNTS INCLUDE 234 BEDS AT THE [facility] Stop: 10/27/18 08:59 Last Admin: 09/27/18 09:15 Dose: 10 mg Documented by: Miscellaneous (Order Awaiting Action) 1 ea N/A QS COUNTS INCLUDE 234 BEDS AT THE [facility] Stop: 10/27/18 00:00 Last Admin: 09/27/18 09:17 Dose: Not Given Documented by: Morphine Sulfate (Morphine Sulfate) 1 - 2 mg IV Q1H PRN PRN Reason: Pain Stop: 10/10/18 18:15 Multivitamins (Multivitamin Tab) 1 tab PO DAILY COUNTS INCLUDE 234 BEDS AT THE [facility] Stop: 10/27/18 08:59 Last Admin: 09/27/18 09:16 Dose: 1 tab Documented by: Ondansetron HCl (Zofran) 4 mg IV Q4H PRN PRN Reason: Nausea And Vomiting Stop: 10/26/18 18:15 Oxycodone HCl (Roxicodone Immediate Rel) 5 mg PO Q6H PRN PRN Reason: Pain Stop: 10/10/18 18:15 Last Admin: 09/27/18 10:40 Dose: 5 mg Documented by: Simvastatin (Zocor) 20 mg PO HS COUNTS INCLUDE 234 BEDS AT [facility] Stop: 10/26/18 20:59 Last Admin: 09/26/18 20:12 Dose: 20 mg Documented by: Triamcinolone Acetonide (Nasacort) 2 sprays NA DAILY [facility] Stop: 10/27/18 08:59 Last Admin: 09/27/18 09:15 Dose: 2 sprays Documented by:
--- NOTE | 2018-09-27 19:10 | Progress Note ---
DATE: 09/27/2018 The patient was seen today. He has drained a bit more fluid than I would like from his chest tube. He put out about 425 mL. I do not think this will continue. We are still waiting for the surgical pathology, although the bronchial cytology shows inflammatory cells. He has no air leak. He has chest x-ray, it looks about the same. He just has an infiltrate with no pneumothorax and really no pleural effusion. He has very little in the way of pain. I am going to probably go ahead and remove his chest tube tomorrow and let him go home. As I explained to the patient who is currently on room air with 93% saturation, my bigger concern is the pathology. We will take his tube out in the morning and probably let him go home.
[2018-09-27] MEDS: SIMVASTATIN 20 MG TAB PO SCH (21:22)
[2018-09-28] MEDS: D5W AND 1/2NSS 1,000 ML IV SCH ×2 (00:06→10:37)
[2018-09-28 05:52] LABS: Basophils # (auto) 0.03 K/uL (0-0.2); Basophils % (auto) 0.3 %; Eosinophils # (auto) 0.13 K/uL (0-0.5); Eosinophils % (auto) 1.5 %; Hemoglobin 13.4 g/dL (14.0-18.0); Immature Granulocytes # (auto) 0.03 K/uL (0.00-0.02); Immature Granulocytes % (auto) 0.3 %; Lymphocytes # (auto) 1.25 K/uL (1.2-3.4); Lymphocytes % (auto) 14.1 %; Mean Corpuscular Hgb Conc 35.3 g/dL (32-36); Mean Corpuscular Volume 99.5 fL (80-100); Mean Platelet Volume 8.9 fL (7.4-10.4); Monocytes # (auto) 0.91 K/uL (0.11-0.59); Monocytes % (auto) 10.3 %; Neutrophils % (auto) 73.5 %; Platelet Count 258 K/uL (130-400); RDW Coefficient of Variation 12.8 % (11.5-14.5); RDW Standard Deviation 46.5 fL (36.4-46.3); Red Blood Count 3.82 M/uL (4.7-6.1); White Blood Count 8.85 K/uL (4.8-10.8)
[2018-09-28] MEDS: ACETAMINOPHEN 1,000 MG/100 ML VIAL IV SCH (05:55)
[2018-09-28] MEDS: LEVOTHYROXINE SODIUM 100 MCG TABLET PO SCH (05:55)
[2018-09-28 06:27] LABS: BUN Creatinine Ratio 11.8 (10-20); Calcium 8.7 mg/dl (8.5-10.1); Creatinine Clr Calc Pharmacy 73.6 ml/min; Est GFR (African American) 96.6; Est GFR (Non-African American) 83.4; Magnesium 2.1 mg/dl (1.8-2.4); Phosphorus 2.2 mg/dl (2.5-4.9)
[2018-09-28] MEDS: ALBUT/IPRATROP 3MG/0.5MG NEB 3 ML VIAL INH SCH ×2 (07:04→11:32)
--- NOTE | 2018-09-28 07:25 | XRay Report ---
XR chest 1V portable CLINICAL HISTORY: s/p lung biopsy COMPARISON STUDY: Chest radiograph September 27, 2018. FINDINGS: Right chest tube remains in place. There is gas within the right chest wall as expected. Th e right pneumothorax shown on prior exam is no longer visualized. Extensive bilateral interstitial th ickening is chronic. Cardiomediastinal silhouette is stable. Mild right lung volume loss is again not ed. IMPRESSION: 1. Right chest tube in place. No pneumothorax identified. 2. No change in interstitial thickening which suggests interstitial lung disease. Electronically signed by: Alfredo Pete M.D. 09/28/2018 7:24 AM
--- NOTE | 2018-09-28 08:17 | XRay Report ---
XR chest 1V portable CLINICAL HISTORY: tube removal COMPARISON STUDY: Chest radiograph performed earlier today. FINDINGS: Right chest tube has been removed. There is a small right apical pneumothorax. There may al so be a small amount of pleural gas within the right lower hemithorax. Postoperative findings within the right lung are noted. Bilateral interstitial thickening is chronic. Cardiomediastinal silhouette is stable. IMPRESSION: 1. Small right pneumothorax. Interval right chest tube removal. 2. Bilateral airspace opacities and interstitial thickening suggestive of interstitial lung disease. Electronically signed by: Alfredo Pete M.D. 09/28/2018 8:16 AM
[2018-09-28] MEDS: TRIAMCINOLONE ACET NASAL SPRAY 10.8ML BTL SCH (09:22)
[2018-09-28] MEDS: MULTIVITAMIN TAB PO SCH (09:22)
[2018-09-28] MEDS: DOCUSATE SODIUM 100 MG CAP PO SCH (09:22)
[2018-09-28] MEDS: ENOXAPARIN INJ 40 MG/0.4 ML SYR SQ SCH (09:23)
[2018-09-28] MEDS: LISINOPRIL 10 MG TAB PO SCH (09:23)
[2018-09-28] MEDS: ASPIRIN 81 MG CHEW PO SCH (09:23)
[2018-09-28] MEDS: ATENOLOL 50 MG TABLET PO SCH (09:23)
--- NOTE | 2018-09-28 12:02 | Hospitalist Progress Note ---
Date of Service September 28, 2018 Assessment & Plan (1) Bilateral pneumonia: Received antibiotic as an outpatient Currently afebrile and not getting any antibiotic Has bibasilar fibrosis/infiltration Was evaluated by parts cleaner and underwent bronchoscopy and thoracoscopy with biopsy Discussed with parts cleaner Patient will be discharged today and will follow-up as an outpatient within 7 days (2) S/P bronchoscopy: This is a 73yo M with a PMH of multilobar pneumonia, HTN, hypothyroidism and HLD who underwent bronchoscopy and then thoracoscopy with biopsy earlier today. POD #1, status post bronchoscopy and thoracoscopy with lung biopsy -Pending work-up: Aspergillus, CMV, HSV, Aero/bradford culture, AFB smear, bronch wash gram stain, Fungal/yeast cultures -[facility] -Appreciate pulmonary and thoracic surgery input -Has thoracotomy tube in place and draining serosanguineous fluid -No additional treatment right now, await full pathology report and then treat as per recommendation (3) Hypothyroidism: Continue levothyroxine (4) HTN (hypertension): Continue atenolol with hold parameters -Hold lisinopril/hctz tomorrow due to NPO status today -Reassess volume status in AM (5) HLD (hyperlipidemia): Statin HS PCP: Dwaine Dispo: Per primary service Will discharge home today Subjective 09/27 The patient was seen and examined in medical floor Patient is a 73-year-old male with history of hypertension, hypothyroidism, hyperlipidemia who underwent elective bronchoscopy, followed by thoracoscopy with biopsy was seen and examined after the procedure. Has been complaining of pain at the chest tube insertion site Denies any increasing shortness of breath at rest Denies any nausea and/or vomiting 10/15 The patient was seen and examined in medical floor He has been feeling a lot better Status post removal of the chest tube Denies any significant symptoms Discussed with the parts cleaner and the patient can be discharged today Review of Systems Review of Systems: All systems reviewed and are unremarkable except as noted Respiratory: + pain on inspiration and + pain with cough Neurologic: + generalized weakness Physical Exam Physical Exam: No apparent distress at rest Constitutional: well developed, well nourished and + ill appearing Eyes: PERRL, conjunctivae normal, anicteric sclerae ENMT: external ear and nose normal, oropharynx normal Neck: trachea midline, no thyromegaly Respiratory: normal respiratory effort; no respiratory distress Auscultation: + diminished lung sounds, + crackles (Bilateral bases more on the right) and + rales (Bilateral at the base) Cardiovascular: Rate/Rhythm: regular rate and regular rhythm Heart Sounds: no murmur Gastrointestinal (Abdomen): Inspection/Auscultation: abdomen normal to inspection and normal bowel sounds Percussion/Palpation: abdomen soft Lymphatic: no cervical or axillary lymphadenopathy Results & Data Vital Signs (Past 12 Hours) Vital Signs Temp Pulse Pulse Resp BP Pulse Ox Pulse Ox 09/28/18 10:00 36.7 C 73 18 106/70 09/28/18 09:20 77 132/77 09/28/18 07:30 95 09/28/18 07:04 66 16 95 09/28/18 06:18 37.0 C 70 16 152/81 H 95 09/28/18 04:35 83 93 09/28/18 02:00 36.4 C L 68 16 124/77 92 Laboratory Results Short CBC 09/28/18 Range/Units 05:42 WBC 8.85 (4.8-10.8) K/uL Hgb 13.4 L (14.0-18.0) g/dL Hct 38.0 L (42-52) % Plt Count 258 (130-400) K/uL BMP 09/28/18 05:42 Sodium 137 Potassium 4.0 Chloride 104 Carbon Dioxide 32 BUN 11 Creatinine 0.92 Glucose 149 H Calcium 8.7 Medications Administered Current Inpatient Medications Albuterol (Duoneb) 3 ml INH QIDR [facility] Stop: 10/26/18 18:15 Last Admin: 09/28/18 11:32 Dose: Not Given Documented by: Aspirin (Aspirin Chew) 81 mg PO DAILY [facility] Stop: 10/27/18 08:59 Last Admin: 09/28/18 09:23 Dose: 81 mg Documented by: Atenolol (Tenormin) 100 mg PO DAILY [facility] Stop: 10/27/18 08:59 Last Admin: 09/28/18 09:23 Dose: 100 mg Documented by: Docusate Sodium (Colace) 100 mg PO BID [facility] Stop: 10/26/18 20:59 Last Admin: 09/28/18 09:22 Dose: 100 mg Documented by: Enoxaparin Sodium (Lovenox) 40 mg SQ QAM [facility] Stop: 10/27/18 08:59 Last Admin: 09/28/18 09:23 Dose: 40 mg Documented by: Lactated Ringer's (Lr) 1,000 mls @ 15 mls/hr IV .Q24H [facility] Stop: 10/26/18 14:14 Last Admin: 09/27/18 14:45 Dose: Not Given Documented by: Acetaminophen (Ofirmev) 1,000 mg in 100 mls @ 400 mls/hr IV Q8 [facility] Stop: 10/26/18 21:59 Last Infusion: 09/28/18 06:16 Dose: Infused Documented by: Levothyroxine Sodium (Synthroid) 100 mcg PO DAILYBB [facility] Stop: 10/27/18 06:29 Last Admin: 09/28/18 05:55 Dose: 100 mcg Documented by: Lisinopril (Zestril) 10 mg PO QAM [facility] Stop: 10/27/18 08:59 Last Admin: 09/28/18 09:23 Dose: 10 mg Documented by: Miscellaneous (Order Awaiting Action) 1 ea N/A QS [facility] Stop: 10/27/18 00:00 Last Admin: 09/28/18 07:34 Dose: Not Given Documented by: Morphine Sulfate (Morphine Sulfate) 1 - 2 mg IV Q1H PRN PRN Reason: Pain Stop: 10/10/18 18:15 Multivitamins (Multivitamin Tab) 1 tab PO DAILY [facility] Stop: 10/27/18 08:59 Last Admin: 09/28/18 09:22 Dose: 1 tab Documented by: Ondansetron HCl (Zofran) 4 mg IV Q4H PRN PRN Reason: Nausea And Vomiting Stop: 10/26/18 18:15 Oxycodone HCl (Roxicodone Immediate Rel) 5 mg PO Q6H PRN PRN Reason: Pain Stop: 10/10/18 18:15 Last Admin: 09/27/18 21:34 Dose: 5 mg Documented by: Simvastatin (Zocor) 20 mg PO HS [facility] Stop: 10/26/18 20:59 Last Admin: 09/27/18 21:22 Dose: 20 mg Documented by: Triamcinolone Acetonide (Nasacort) 2 sprays NA DAILY [facility] Stop: 10/27/18 08:59 Last Admin: 09/28/18 09:22 Dose: 2 sprays Documented by:
--- NOTE | 2018-09-28 12:42 | Surgery Progress Note ---
Date of Service September 28, 2018 Assessment & Plan (1) Interstitial lung disease: -pt. is s/p FOB and RVATS with lung bx. on 09/26/18 -gram (-) rods noted on a combined bronchial washing culture (discussed with primary service adn they have discussed with pulmonary; no treatment planned at this time) -surgical cultures are all (-0 to date -surgical path concerning for fibrosing interstitial lung disease such as UIP ([facility]) -chest tube removed today and post-pull CXR showed only a small apical pneumothorax on right -at time of d/c our office will call for a 1 week f/u appt. with repeat CXR -pt. told he may remove dressings in 3 days and shower thereafter Subjective Pt. notes discomfort from chest tube but does not note worsening SOB. Physical Exam Constitutional: well developed and well nourished; no acute distress Respiratory: -crackles and decreased BS notes at bases, R>L Musculoskeletal: no calf tenderness Results & Data Vital Signs (Past 12 Hours) Vital Signs Temp Pulse Pulse Resp BP Pulse Ox Pulse Ox 09/28/18 10:00 36.7 C 73 18 106/70 09/28/18 09:20 77 132/77 09/28/18 07:30 95 09/28/18 07:04 66 16 95 09/28/18 06:18 37.0 C 70 16 152/81 H 95 09/28/18 04:35 83 93 09/28/18 02:00 36.4 C L 68 16 124/77 92
[2018-09-29 01:29] LABS: HSV Type 1 DNA Not Detected (Not Detected); HSV Type 2 DNA Not Detected (Not Detected)
--- NOTE | 2018-09-30 08:04 | Discharge Summary ---
Date of Service September 30, 2018 Admission HPI Per Admitting Provider Reason for Consultation: Medical management Attending Physician: Corbin Estevez MD, FACS History of Present Illness This is a 73yo M with a PMH of multilobar pneumonia, HTN, hypothyroidism and HLD who underwent a bronchoscopy and then thoracoscopy with biopsy earlier today. Has been experiencing progressive shortness of breath x 6 weeks and has been requiring 2L O2 at home since Tuesday. Has also had a productive cough with clear/white sputum. Was seen by Dr. Viera in clinic last week and has completed 2 courses of abx, steroids and inhalers but symptoms persist. Had a CT chest without contrast on 09/15/18 that showed bilateral pulmonary infiltrates, R>L. During bronchoscopy today by Dr. Viera, diffuse interstitial alveolar infiltrates were seen in R > L lung and was kept NPO for thorascopic biopsy by Dr. Estevez this afternoon. Denies fever, chills, night sweats or hemoptysis. Endorses 6 pound weight loss over past month. No headache, lightheadedness, chest pain, abdominal pain, nausea, vomiting, dysuria, constipation or diarrhea Admission Exam Per Admitting Provider Physical Exam: General Appearance: WD/WN, no apparent distress, resting comfortably Head: normocephalic, atraumatic Eyes: normal inspection, PERRL, EOMI ENT: hearing grossly normal, pharynx normal (dry mucous membranes) Neck: supple, no JVD, no adenopathy Respiratory/Chest: Bibasilar crackles, decreased breath sounds throughout. No wheezes or rhonci noted. No respiratory distress or accessory muscle use. Saturating at 98% on 2L NC Cardiovascular: regular rate, rhythm, no murmur, normal peripheral pulses Abdomen/GI: normal bowel sounds, soft, non-tender to palpation Extremities/Musculoskelatal: normal inspection, no calf tenderness, normal capillary refill, no pedal edema Neurologic/Psych: alert, normal mood/affect, oriented x 3 Skin: normal color, warm/dry Principal Diagnosis Interstitial lung disease, status post bronchoscopy and thoracoscopy with lung biopsy Discharge Exam Constitutional well developed, well nourished and + ill appearing Eyes PERRL, conjunctivae normal, anicteric sclerae ENMT external ear and nose normal, oropharynx normal Neck trachea midline, no thyromegaly Respiratory normal respiratory effort; no respiratory distress Auscultation: + diminished lung sounds, + crackles (Bilateral bases more on the right) and + rales (Bilateral at the base) Cardiovascular Rate/Rhythm: regular rate and regular rhythm Heart Sounds: no murmur Gastrointestinal (Abdomen) Inspection/Auscultation: abdomen normal to inspection and normal bowel sounds Percussion/Palpation: abdomen soft Lymphatic no cervical or axillary lymphadenopathy Discharge Data Allergies Allergy/AdvReac Type Severity Reaction Status Date / Time No Known Allergies Allergy Verified 09/26/18 08:58 Consultations 09/26/18 09:30 Consult Hospitalist Routine Procedures Performed Operation Date: 09/26/18 08:50 Actual Procedures p Right Video Assisted Thoracoscopy with Lung Biopsy(Right) - Corbin Estevez MD, FACS Operation Date: 09/26/18 09:00 Actual Procedures p Bronchoscopy Radiology(Bilateral) - Yovanny Viera MD Hospital Course (1) Bilateral pneumonia: Received antibiotic as an outpatient Currently afebrile and not getting any antibiotic Has bibasilar fibrosis/infiltration Was evaluated by weapons and tactics instructor and underwent bronchoscopy and thoracoscopy with biopsy Discussed with weapons and tactics instructor Patient will be discharged today and will follow-up as an outpatient within 7 days (2) S/P bronchoscopy: This is a 73yo M with a PMH of multilobar pneumonia, HTN, hypothyroidism and HLD who underwent bronchoscopy and then thoracoscopy with biopsy earlier today. POD #1, status post bronchoscopy and thoracoscopy with lung biopsy -Pending work-up: Aspergillus, CMV, HSV, Aero/bradford culture, AFB smear, bronch wash gram stain, [facility]reciate [facility] and thoracic surgery input -Has thoracotomy tube in place and draining serosanguineous fluid -No additional treatment right now, await full pathology report and then treat as per recommendation (3) Hypothyroidism: Continue levothyroxine (4) HTN (hypertension): Continue atenolol with hold parameters -Hold lisinopril/hctz tomorrow due to NPO status today -Reassess volume status in AM (5) HLD (hyperlipidemia): Statin HS PCP: Dwaine Dispo: Per primary service Will discharge home today Total Time Total Time Spent Total Time Spent (In Minutes): 35 minutes Total Time Includes: Examination of the Patient, Discharge Planning, Medication Reconciliation and Communication With Other Providers Discharge Plan Discharge Items Patient Disposition: Home - Self-Care Reason For Visit: INTERSTITIAL LUNG DISEASE Discharge Diagnosis: Interstitial lung disease, status post bronchoscopy and thoracoscopy with lung biopsy Condition: Good Discharge Goals: Decrease discomfort, Increase independence and Improve nutritional status Activity: Resume your previous activity Non-emergency contact: Primary Care Provider Call non-emergency contact if: you have any medication questions and your symptoms worsen Follow-up/Referrals: Yesenia Isidro, DO [Primary Care Provider] - 10/05/18 10:00 am (Your appointment is with Dr. Bernal. Please keep the appointment with Dr. Viera/Pulmonary) Diet: Regular Addtl Provider Instructions: Please use your oxygen as recommended. Prescriptions: Continued simvastatin 20 mg Tablet 20 mg PO HS RF: 0 triamcinolone acetonide [Nasacort] 55 mcg Aerosol,Hugo 2 spray INTRANASAL DAILY RF: 0 aspirin 81 mg Tablet,Chewable 81 mg PO DAILY RF: 0 lisinopril-hydrochlorothiazide 10-12.5 mg Tablet 1 tab PO DAILY RF: 0 atenolol 50 mg Tablet 100 mg PO DAILY RF: 0 levothyroxine 100 mcg Capsule 100 mcg PO DAILY RF: 0 Breo Ellipta 100-25 mcg/dose Blister With Device 1 inh INHALATION DAILY RF: 0 Multi-Emmanuel 1 tab PO DAILY RF: 0 ipratropium-albuterol 0.5 mg-3 mg(2.5 mg base)/3 mL Solution For Nebulization 3 ml INHALATION QID RF: 0 Stand-Alone Forms: [place] [facility]/Other Patient Handouts: Thoracoscopy After Discharge Orders: Discharge Order (Routine); Ordered 09/28/18 Ordered By: Phuong Dominguez Admission Data Admit Date/Time: 09/26/18 17:24 Attending Provider: Phuong Dominguez Admit Provider: Corbin Estevez Primary Care Provider: Yesenia Isidro Other Providers: Yovanny Viera ; Dalton Das ; Corbin Estevez ; Janet Funes Tyler A ; Erika Amor ; Corbin Domínguez ; Thanh Funes Service: Surgical Services Other Interventions: Discharge Summary Assessment (RN) Last Done: 09/28/18 13:12 DC Date/Time DO NOT enter until pt leaves facility: 09/28/18 13:31
[2018-10-03 22:23] LABS: CMV DNA Qnt Real Time PCR <200 IU/mL (<200); CMV DNA Quant PCR <2.30 log IU/mL (<2.30)
== END 2018-09-28 13:31 | disposition home or self-care (01) | DRG 168 ==
LOC: ASU 08:19 → 3E 17:24 → SUATTDRO 17:24

== ENCOUNTER 2018-11-30 16:52 | Inpatient (IN) ==
[2018-11-30] MEDS ORDERED: MAGNESIUM HYDROXIDE SUSP 30 ML UDC PO PRN (17:13)
[2018-11-30] MEDS ORDERED: ALUMINUM/MAGNESIUM SUSP 30 ML UDC PO PRN (17:13)
[2018-11-30] MEDS ORDERED: POLYETHYLENE (MIRALAX) 17 GM PACK PO PRN (17:13)
[2018-11-30] MEDS ORDERED: ONDANSETRON INJ 2 MG/ML 2 ML VIAL IV PRN (17:13)
[2018-11-30] MEDS ORDERED: ACETAMINOPHEN 325 MG TAB PO PRN (17:13)
--- NOTE | 2018-11-30 18:29 | History & Physical Report ---
Date of Service November 30, 2018 Assessment & Plan (1) Pneumothorax on right: (2) Pneumomediastinum: This is a 73yr M with a significant past medical history of right lung adenocarcinoma, usual interstitial pneumonitis, HTN, HLD, hypothyroidism, history of multilobar pneumonia 09/2018 presents to [facility] as a direct admission from Dr. Estevez's office secondary to increased shortness of breath and abnormal finding on outpatient CT scan. Soft tissue neck CT was obtained today which read soft tissue emphysema, right chest wall and neck right greater than left, pneumomediastinum and small right apical pneumothorax, Cavitary nodule at the left apex. This is concerning for a site of metastases given the history of lung adenocarcinoma. CT scan chest revealed extensive subcutaneous emphysema change, pneumomediastinum, small right apical pneumothorax, progressive infiltrative change in left lower lobe and left upper lobe. Due to his poor presentation and abnormal CT findings he was referred for direct admission. Pt directly admitted to medical telemetry Dr. Estevez is consulted - await his recommendations Placed on supplemental oxygen given pneumothorax observation for now of subcutaneous emphysema repeat CXR in a.m. obtain cbc, cmp, mag continue outpt prednisone for UIP consult pulm Dr. Mera Barium swallow in am. NPO after midnight Place on IV antibiotics for now - zosyn and vanco until infection entirely ruled out given CT scan MRSA swab, if - stop empiric vanco (3) Adenocarcinoma of right lung: recent dx mucin producing adenoca of lung Follows [facility] and [facility] to be set up with outpt oncology New cavitary lesion to RUBY concerning for metastasis consult pulm (4) Oral candidosis: tx with nystatin x 1 week Completing two week course of Diflucan 200mg daily on 12/07 (5) Interstitial lung disease: follows Dr. Viera, pulm and Dr. Estevez, Thoracic Continue prednisone 20mg bid, nebulizer tx, Breo (6) HTN (hypertension): blood pressure stable on atenolol, lisinopril/hctz (7) HLD (hyperlipidemia): continue statin (8) Hypothyroidism: continue levothyroxine (9) DVT prophylaxis: SCD/TEDS await for thoracic surg eval prior to initiating chemoprophlyaxis Disposition: to be determined Follow up: PCP Dr. Isidro upon discharge Patient was seen and examined in collaboration with Dr. Dominguez, please see addendum History of Present Illness Chief Complaint: Referred for direct admission due to abnormal CT scan. Primary Care Provider: Yesenia Isidro DO This is a 73yr M with a significant past medical history of right lung adenocarcinoma, usual interstitial pneumonitis, HTN, HLD, hypothyroidism, history of multilobar pneumonia 09/2018 presents to [facility] as a direct admission from Dr. Estevez's office secondary to increased shortness of breath and abnormal finding on outpatient CT scan. Soft tissue neck CT was obtained today which read soft tissue emphysema, right chest wall and neck right greater than left, pneumomediastinum and small right apical pneumothorax. Due to his poor presentation and abd CT findings he was referred for direct admission. Pt complaining of increased swelling to face and neck x 2 days. notice Tuesday night. Feels swelling has stayed the same, not worse. Pt complains of GARNICA, which has been chronic as of late given above diagnosis. No worsening of breathing given swelling. +productive cough but denies purulence. Further elicits lower extremity weakness, falls due to loss of muscle mass and inability to pickle maker feet per . He denies any f/c/s, dizziness, lightheaded, chest pain, sob at rest, hemoptysis, n/v/d, change in bowel or urinary habits. Is requesting food due to not eating all day, because of appointments. States overall has decreased appetite due to decreased taste from thrush. Just finished 1 week course of nystatin swish/swallow and continues to take fluconazole for additional week. Of significance patient was hospitalized 09/26/2018-09/30/2018 secondary to shortness of breath x6 weeks. Diagnosed with multilobar pneumonia and underwent right bronchoscopy and thoracoscopy with lung biopsy by Dr. Estevez. Washings grew gram-negative rods but surgical culture was negative. Pathology positive for fibrosing usual interstitial pneumonitis. He also had follow-ups at [facility] in [facility] and was diagnosed with multilobar involvement with mucin producing adenocarcinoma of the lung. On 10/16 patient underwent right thoracentesis due to persistent right pneumothorax with effusion. Allergies Allergy/AdvReac Type Severity Reaction Status Date / Time No Known Allergies Allergy Verified 11/30/18 15:31 Home Medications Home Medications Medication Instructions Recorded Confirmed Type Breo Ellipta 1 inh INHALATION DAILY 09/22/18 11/30/18 History aspirin 81 mg PO HS 09/22/18 11/30/18 History atenolol 100 mg PO DAILY 09/22/18 11/30/18 History levothyroxine 100 mcg PO DAILY 09/22/18 11/30/18 History lisinopril-hydrochlorothiazide 1 tab PO DAILY 09/22/18 11/30/18 History simvastatin 20 mg PO HS 09/22/18 11/30/18 History ipratropium-albuterol 3 ml INHALATION TID 09/26/18 11/30/18 History prednisone 20 mg PO BID 10/16/18 11/30/18 History ketoconazole 2 % shampoo 2 % TOPICAL UD ml 11/22/18 11/30/18 History multivitamin tablet 1 tab PO DAILY 11/22/18 11/30/18 History triamcinolone acetonide 55 mcg 2 sprays INTNAS DAILY 11/22/18 11/30/18 History nasal spray aerosol fluconazole 200 mg tablet 200 mg PO DAILY #14 tab 11/23/18 11/30/18 Rx Past Med/Surg History Medical History Allergic rhinitis Shortness of breath Bilateral pneumonia Hypothyroidism (Chronic) HLD (hyperlipidemia) (Chronic) Pulmonary fibrosis (Acute) Surgical History S/P bronchoscopy (Resolved) H/O arthroscopic knee surgery (Chronic) right knee History of bilateral cataract extraction (Chronic) History of carpal tunnel release of both wrists (Chronic) History of tonsillectomy (Chronic) Family History Other Heart disease Stroke Social History Preferred Language: Danish Communication Ability: Effective 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 Physical Exam Physical Exam: Gen: WD, thin, male, NAD, sitting up at bedside, pleasant, conversing easily, answers questions appropriately Head: Normocephalic, Atraumatic Eyes: Sclera normal, no conjunctival injection, PERRLA, EOMI ENT: Gross hearing intact, normal pharynx, mucous membranes moist, no thrush Neck: supple, No JVD, Resp: Clear to auscultation b/l with scattered rales throughout worse bibasilar, no wheeze, or rhonchi. 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 Pneumomediastinum is also present. Small right apical pneumothorax. Bibasal lung parenchyma shows a baseline emphysematous component. Diffuse infiltrative/fibrotic changes of the right hemithorax again predominate in the right lower lobe distribution. There are findings of progressive parenchymal infiltrative change involving the left lower lobe distribution anatomically slightly progressive somewhat nodular/groundglass appearance to the left upper lobe distribution primarily image 14. IMPRESSION: 1. Extensive subcutaneous emphysematous change. 2. Pneumomediastinum.. 3. Small right apical pneumothorax. 4. Stable diffuse parenchymal infiltrative/fibrotic change right hemithorax. 5. Progressive infiltrative change left lower lobe and to a lesser extent left upper lobe Soft Tissue neck CT: IMPRESSION: 1. Extensive soft tissue emphysema associated with pneumomediastinum and a small right apical pneumothorax. 2. No lymphadenopathy. No mass lesion. 3. Postsurgical changes of the right apex. 4. Cavitary nodule at the left apex. This is concerning for a site of metastases given the history of lung adenocarcinoma. 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 He was admitted from Dr. Estevez office with increasing subcutaneous, mediastinal emphysema with right apical pneumothorax Complaints to have shortness of breath on minimal exertion Denies any fever and/or chills Denies any problem with swallowing On examination Mild to moderate distress at rest due to shortness of breath Very anxious but hemodynamically stable Chest-decreased breath sounds bilaterally with crackles at the bases. 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
[2018-11-30] MEDS: ALBUT/IPRATROP 3MG/0.5MG NEB 3 ML VIAL INH SCH (19:06)
[2018-11-30] MEDS ORDERED: VANCOMYCIN CONSULT ACTIVE PRN (19:13)
[2018-11-30] MEDS ORDERED: CONSULT PHARMACY PRN (19:14)
[2018-11-30] MEDS ORDERED: PIPERACILLIN/TAZOBACTAM 3.375 GM in DEXTROSE 5% 100 ML IV ONE (19:30)
[2018-11-30] MEDS: [UNRECOGNIZED DRUG - REMARK] SCH ×2 (19:41→23:42)
--- NOTE | 2018-11-30 19:41 | Pharmacy Report ---
Pharmacy Abx Initial Consult - Date of Service November 30, 2018 - Pharmacy Dosing Scope Date of Consult: 11/30/18 Consultation requested by: Elvie Salmeron Pharmacy is consulted to initiate Zosyn and Vancomycin IV dosing therapy, order appropriate labs and adjust drug dose/frequency. - Subjective The patient is a 73 year old M admitted on 11/30/18 17:18. - Objective Height: 5 ft 9 in Weight: 76.2 kg Vital Signs (Past 12hrs): Vital Signs Temp Pulse Pulse Resp BP Pulse Ox 11/30/18 19:10 88 11/30/18 19:09 80 16 98 11/30/18 18:07 36.7 C 89 16 133/88 93 11/30/18 17:42 36.6 C 18 141/91 H 91 Lab Results (24hrs): Laboratory Tests (24 Hours) 11/30/18 19:18 Creatinine Cancelled Est Cr Clr Drug Dosing Cancelled Micro Results: 11/30/18 19:09 Aerobic Blood Culture - Pending Blood Anaerobic Blood Culture - Pending 11/30/18 19:17 Aerobic Blood Culture - Pending Blood Anaerobic Blood Culture - Pending - Risk Factors for Resistance * Antimicrobial use within the last 90 days - Assessment & Plan Assessment * 73 year old M with a past medical history of right lung adenocarcinoma, pneumonitis, and a history of multilobar pneumonia 09/2018 * CT chest revealed progressive infiltrative change in left lower lobe and left upper lobe * Pt started on empiric vanc/zosyn * MRSA nasal swab and blood cultures have been obtained and are currently pending Plan Vancomycin IV * Estimated PK Parameters: Vd 0.7 L/kg, Milad 0.05 hr-1, t1/2 14 hr * Loading dose: 1750 mg (~23 mg/kg) * Maintenance dose: 1250 mg IV (~16 mg/kg) every 18 hours * Goal trough level: 15 to 20 mcg/mL * Trough will be ordered once nasal swab results and it is confirmed the vancomycin is to be continued Piperacillin/tazobactam * 3.375 g bolus administered over 30 minutes, then 3.375 g IV extended infusion every 8 hours for CrCl greater than 20 mL/min Pharmacy will continue to follow and will adjust dose/frequency as necessary. Thank you.
[2018-11-30 19:58] LABS: Albumin Level 3.3 gm/dl (3.4-5.0); BUN Creatinine Ratio 26.3 (10-20); Bilirubin,Total 0.6 mg/dl (0.2-1); Calcium 9.3 mg/dl (8.5-10.1); Creatinine Clr Calc Pharmacy 62.2 ml/min; Est GFR (African American) 78.7; Est GFR (Non-African American) 67.9; Globulin 3.3 gm/dl (2.5-4.0); Magnesium 2.4 mg/dl (1.8-2.4); Potassium 4.4 mmol/L (3.5-5.1); Total Protein 6.6 gm/dl (6.4-8.2)
[2018-11-30] MEDS ORDERED: VANCOMYCIN HCL 1,750 MG in SODIUM CHLORIDE 0.9% 500 ML IV SCH (20:00)
[2018-11-30] MEDS: predniSONE 20 MG TAB PO SCH (20:03)
[2018-11-30 20:13] LABS: Beta-Hydroxybutyrate 2.09 mg/dl (0.2-2.81)
[2018-11-30] MEDS ORDERED: DEXTROSE 50% 50 ML SYRINGE IV PRN (20:15)
[2018-11-30] MEDS ORDERED: GLUCOSE 40% GEL 15 GM TUBE PO PRN (20:15)
[2018-11-30] MEDS ORDERED: GLUCAGON FOR INJ 1 MG VIAL IM PRN (20:15)
[2018-11-30] MEDS ORDERED: GLUCOSE 10 TABS/TUBE PO PRN (20:15)
[2018-11-30] MEDS ORDERED: CARBOHYDRATES FOR HYPOGLYCEMIA PO PRN (20:15)
[2018-11-30] MEDS ORDERED: ASPIRIN 81 MG CHEW PO SCH (21:00)
[2018-11-30] MEDS ORDERED: SIMVASTATIN 20 MG TAB PO SCH (21:00)
[2018-11-30] MEDS: INSULIN ASPART 100 UNITS/ML 3 ML PEN SC SCH (21:28)
[2018-12-01] MEDS: PIPERACILLIN/TAZOBACTAM 3.375 GM in DEXTROSE 5% 100 ML IV SCH ×3 (01:45→18:41)
[2018-12-01] MEDS ORDERED: LEVOTHYROXINE SODIUM 100 MCG TABLET PO SCH (06:30)
[2018-12-01 06:44] LABS: Eosinophils # (auto) 0.01 K/uL (0-0.5); Eosinophils % (auto) 0.1 %; Hematocrit (blood only) 37.7 % (42-52); Hemoglobin 13.8 g/dL (14.0-18.0); Immature Granulocytes # (auto) 0.08 K/uL (0.00-0.02); Immature Granulocytes % (auto) 0.7 %; Lymphocytes # (auto) 0.37 K/uL (1.2-3.4); Lymphocytes % (auto) 3.2 %; Mean Corpuscular Hgb Conc 36.6 g/dL (32-36); Mean Corpuscular Volume 97.7 fL (80-100); Mean Platelet Volume 9.3 fL (7.4-10.4); Monocytes # (auto) 0.35 K/uL (0.11-0.59); Monocytes % (auto) 3.1 %; Neutrophils # (auto) 10.65 K/uL (1.4-6.5); Neutrophils % (auto) 92.9 %; Platelet Count 181 K/uL (130-400); RDW Coefficient of Variation 13.5 % (11.5-14.5); RDW Standard Deviation 47.4 fL (36.4-46.3); Red Blood Count 3.86 M/uL (4.7-6.1); White Blood Count 11.46 K/uL (4.8-10.8)
[2018-12-01] MEDS: ALBUT/IPRATROP 3MG/0.5MG NEB 3 ML VIAL INH SCH ×2 (07:01→19:26)
[2018-12-01 07:07] LABS: BUN Creatinine Ratio 22.9 (10-20); Calcium 8.6 mg/dl (8.5-10.1); Creatinine Clr Calc Pharmacy 67.8 ml/min; Est GFR (African American) 87.4; Est GFR (Non-African American) 75.4; Potassium 4.3 mmol/L (3.5-5.1)
[2018-12-01 07:27] LABS: Estimated Average Glucose 240 mg/dl
[2018-12-01] MEDS ORDERED: PHARMACY GLYCEMIC MGMT CONSULT PRN (08:20)
[2018-12-01] MEDS: INSULIN ASPART 100 UNITS/ML 3 ML PEN SC SCH ×3 (08:50→17:40)
[2018-12-01] MEDS ORDERED: ATENOLOL 50 MG TABLET PO SCH (09:00)
[2018-12-01] MEDS ORDERED: INSULIN HUMAN NPH SC SCH ×2 (09:00→21:00)
[2018-12-01] MEDS ORDERED: LISINOPRIL/HCTZ 10/12.5MG TAB PO SCH (09:00)
[2018-12-01] MEDS ORDERED: TRIAMCINOLONE ACET NASAL SPRAY 10.8ML BTL SCH (09:00)
[2018-12-01] MEDS ORDERED: MULTIVITAMIN TAB PO SCH (09:00)
[2018-12-01] MEDS ORDERED: FLUCONAZOLE 100 MG TAB PO SCH (09:00)
--- NOTE | 2018-12-01 09:16 | Pulmonary Consultation ---
Date of Consultation December 01, 2018 Assessment & Plan (1) Pneumomediastinum: The exact etiology for the pneumomediastinum is not clear. There is extensive air throughout the mediastinum that obviously is under pressure. He has a small right pneumothorax which would appear to be too small for chest tube insertion. Suggest evaluation of the pharynx and larynx to be sure there is no disruption to tissue. Dr. Estevez had suggested an ENT evaluation. Likewise the esophagus should be evaluated. Apparently barium swallow was ordered. The patient may need bronchoscopy to rule out any tears in the trachea or bronchial tree. He needs serial evaluation to be sure the pneumomediastinum is not extending. Thankfully he has almost no symptoms at present. We will discuss this with Dr. Estevez. The patient has an elevated white count and he needs close observation for mediastinitis. (2) Pneumothorax on right: Follow clinically and with repeat x-rays. (3) Adenocarcinoma of right lung: The patient ultimately will need to see oncology. (4) Usual interstitial pneumonitis: The patient has been on prednisone 40 mg for several weeks. He has developed diabetes mellitus. There is been no definite improvement from the prednisone. Suggest decreasing the prednisone down to 30 mg daily for 3 days and then decrease down to 20 mg daily. History of Present Illness Attending Physician: Charlie Ruiz MD History of Present Illness Pulmonary consultation is requested regarding pneumomediastinum. The patient is a 73-year-old man who has no history of lung problems prior to this year. In April and May he had symptoms consistent with an upper respiratory tract infection. Subsequently he had a residual cough that did not resolve. The cough was generally nonproductive. Ultimately in the springtime a chest x-ray showed evidence of an infiltrate predominantly in the right lung. A CAT scan was done. He had extensive infiltrative disease right greater than left. The patient was having increasing shortness of breath with exertion. At rest he was comfortable. He did have a predominantly dry cough. He was seen by Dr. Viera as an outpatient. Bronchoscopy was done on 09/26/2018 which did not show any obvious reason for the infiltrates. Lavage was done. Subsequently he underwent a VATS procedure on the same day by Dr. Estevez. The patient was discharged from the hospital 2 days later. Subsequently he was found to have a right pneumothorax. He underwent an aspiration of the pneumothorax on October 16 as an outpatient. The patient's lung biopsy was read at [facility] and was also sent to to outside labs for opinions including [facility]. The ultimate conclusion from both [facility] and [facility] is that the patient had mucinous adenocarcinoma of the right middle and lower lobe superimposed upon usual interstitial pneumonitis. The patient was started on prednisone therapy and he has been on 40 mg daily reportedly. He has had recurring episodes of thrush in the oropharynx according to the patient. He has been found to have elevated blood sugars likely secondary to the steroids. He denied a prior history of diabetes. Approximately 3 days ago the patient began to note some swelling under the skin in the upper chest and neck area. He has had a sudden onset of subcutaneous emphysema. He saw Dr. Estevez yesterday and he arranged for a CAT scan of the chest to be done. The CAT scan shows extensive subcutaneous emphysema and extensive pneumomediastinum with a small right apical pneumothorax. There are fairly diffuse parenchymal infiltrates and fibrotic change throughout the right lung with increased infiltrative change in the left lower lobe and left upper lobe. Surprisingly the patient is not very symptomatic. He has not noticed a worsening in his shortness of breath. He is comfortable for the most part walking on level ground although he was found to have an abnormal 6-minute walk suggesting the need for portable oxygen therapy when he is exerting himself. He is short of breath going up steps or doing anything with more exertion. He has just a mild cough. There is scant production. The mucus might be slightly white. There is been no hemoptysis. He is not having chest pains. He denies chills fevers or sweats. The patient has only a total of 5 pack years of smoking with none since 1969. 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 He did have some exposure to coal dust and sand dust. The pathology from the lung biopsies did not show any evidence of pneumoconiosis. There is no family history of lung problems. His mother age 67 with congestive heart failure and father age 52 from CVA. Allergies Allergy/AdvReac Type Severity Reaction Status Date / Time No Known Allergies Allergy Verified 11/30/18 15:31 Home Medications Home Medications Medication Instructions Recorded Confirmed Type Breo Ellipta 1 inh INHALATION DAILY 09/22/18 11/30/18 History aspirin 81 mg PO HS 09/22/18 11/30/18 History atenolol 100 mg PO DAILY 09/22/18 11/30/18 History levothyroxine 100 mcg PO DAILY 09/22/18 11/30/18 History lisinopril-hydrochlorothiazide 1 tab PO DAILY 09/22/18 11/30/18 History simvastatin 20 mg PO HS 09/22/18 11/30/18 History ipratropium-albuterol 3 ml INHALATION TID 09/26/18 11/30/18 History prednisone 20 mg PO BID 10/16/18 11/30/18 History ketoconazole 2 % shampoo 2 % TOPICAL UD ml 11/22/18 11/30/18 History multivitamin tablet 1 tab PO DAILY 11/22/18 11/30/18 History triamcinolone acetonide 55 mcg 2 sprays INTNAS DAILY 11/22/18 11/30/18 History nasal spray aerosol fluconazole 200 mg tablet 200 mg PO DAILY #14 tab 11/23/18 11/30/18 Rx Patient History Medical History Allergic rhinitis Shortness of breath Bilateral pneumonia Hypothyroidism (Chronic) HLD (hyperlipidemia) (Chronic) Pulmonary fibrosis (Acute) Surgical History S/P bronchoscopy (Resolved) H/O arthroscopic knee surgery (Chronic) right knee History of bilateral cataract extraction (Chronic) History of carpal tunnel release of both wrists (Chronic) History of tonsillectomy (Chronic) Family History Other Heart disease Stroke Social History Preferred Language: Afghan Communication Ability: Effective 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 He has lost about 20 pounds. No chills fevers or sweats noted. Neurologic: The patient has noted that his right foot seems to lag or drop at times when he is walking. This is new. Ophthalmic: No complaints ENT: Has nasal congestion which has been more recent. He has some mouth and throat pain which he has been attributing to thrush. He has had several courses of medicine for thrush. Cardiac: No chest pain or palpitations Pulmonary: As noted in history of present illness GI: Denies difficulty swallowing or painful swallowing. He said no heartburn. He has mild constipation intermittently. Denies abdominal pain. : Denies complaints Musculoskeletal: Denies myalgias or arthralgias Dermatologic: Denies rashes Endocrine: Denies lymphadenopathy Physical Exam Physical Exam: The patient is a pleasant 73-year-old male who looks appropriate for his age. He is cooperative alert and oriented. He was in no distress at rest. His face appears a bit puffy but I have not seen him in the past for comparison. Weight is 72.6 kg. Temperature is 36.7. Eye exam showed evidence of implants bilaterally from prior surgery. Pupils were reactive to light. Nares clear. Mouth exam showed his tongue was mildly white but it did not appear to be true oral candidiasis. Inspection of the neck reveals definite puffiness. Palpation reveals subcutaneous air mainly on the right side. One can visualize the subcu emphysema in the right supraclavicular area into the neck. There is air palpable onto the right anterior chest and to a lesser degree the left anterior chest. Cardiac rate 70/min. Rhythm regular. Blood pressure 149/93. Auscultation of the lung cortez reveals rales posteriorly bilaterally. I have not examined him previously. No wheezing heard. Respiratory rate was 18 breaths/min and not labored. Saturation 98% on 2 L. I did not palpate subcutaneous air posteriorly. Abdomen is soft. Bowel sounds were present. There was no tenderness to palpation, masses, or organomegaly. Extremities showed no cyanosis clubbing or edema. Results & Data Vital Signs (Past 12 Hours) Vital Signs Temp Pulse Resp BP Pulse Ox 12/01/18 07:20 36.7 C 70 17 149/93 H 98 12/01/18 07:01 90 14 98 12/01/18 04:00 36.9 C 72 18 147/91 H 100 11/30/18 23:24 36.1 C L 73 16 137/89 93 Laboratory Results White count today is 11.46. Hemoglobin 13.8. Platelets 181,000. Differential shows 92.9% neutrophils. Electrolytes show sodium 136 potassium 4.3 chloride 98 bicarb 32. BUN 23 with a creatinine of 1. Blood sugar this morning is 238. Last evening it was 269. Hemoglobin A1c is 10. Liver functions show AST normal at 37, ALT elevated 95, alk phos normal at 110, bilirubin normal at 0.6. Albumin decreased to 3.3 with total protein 6.6. PG Care Time/CCT Total # of Minutes Spent Total Time Spent with Patient: Total time spent is greater than 50% in coordination of care (as documented) at patient's floor/unit and/or counseling patient:
[2018-12-01] MEDS: [UNRECOGNIZED DRUG - REMARK] SCH ×2 (09:25→17:40)
--- NOTE | 2018-12-01 09:50 | XRay Report ---
XR chest 2V routine HISTORY: follow up pneumomediastinum, pneumothorax COMPARISON: Chest CT 11/30/2018. FINDINGS: Right mid to lower lung zone and left base airspace opacities are again noted. Tiny right a pical pneumothorax is similar in size. The pneumomediastinum and extensive subcutaneous emphysema als o persists. The heart is stable in size. Suspect a trace right pleural effusion. IMPRESSION: No change in the bilateral airspace opacities, small right apical pneumothorax, pneumomediastinum, an d extensive subcutaneous emphysema. Electronically signed by: Thanh Naqvi M.D. 12/01/2018 9:48 AM
--- NOTE | 2018-12-01 10:05 | Fluoroscopy Report ---
FL barium swallow CLINICAL HISTORY: 73 years-old Male presenting with pneumo mediastinum. TECHNIQUE: A routine air-contrast (double contrast) water-soluble iodine-based esophagram was perform ed. 100 mL of Optiray 300 was used. Multiple spot images of the esophagus were acquired both upright and prone. COMPARISON: CT chest from 11/30/2018. FINDINGS: Pneumomediastinum is evident. The patient was able to ingest contrast without difficulty. Normal esophageal mucosal pattern. No nicolasa dence of intrinsic or extrinsic mass lesion. No aspiration observed. Few tertiary contractions may be present in the distal esophagus. The gastroesophageal junction distended normally. No evidence of a hiatal hernia. Fluoroscopy dosage (mGy): Not available. Fluoroscopy time: 0.4 minutes. Number or time of high level fluoroscopy (HLF), digital spot, or digital subtraction images: 8. IMPRESSION: 1. Esophageal dysmotility, possibly presbyesophagus. No evidence of an esophageal perforation. 2. Pneumomediastinum, which is known. Electronically signed by: López Santos M.D. 12/01/2018 10:04 AM
[2018-12-01] MEDS: predniSONE 20 MG TAB PO SCH (10:11)
[2018-12-01] MEDS ORDERED: VANCOMYCIN HCL 1,250 MG in SODIUM CHLORIDE 0.9% 250 ML IV SCH (14:00)
--- NOTE | 2018-12-01 14:05 | Progress Note ---
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 He has been on oxygen and had a persistent pneumothorax which was recurrent after I performed a lung biopsy which was odd. He was on fairly high dose steroids. His last x-ray on 10/31/2018 showed very little in the way of pneumothorax and he has been scheduled to come back and see me yesterday with his CT scan. He presented to the office and he was shaky on his feet. He was also relatively hypoxic. CT scan showed a pneumomediastinum. I was worried about him and he was admitted to the Medical Service. He looks better today. He does have a pneumomediastinum. A barium swallow showed no evidence of a leak. I discussed this case with Dr. Rabago as well as Dr. Ruiz. I am going to hold off doing any kind of intervention in his chest as I do not think he needs it. I do think we need to make sure he does not have a pharyngeal perforation. He has some mild pain in his throat. This all could be benign. I would continue antibiotics and keep him n.p.o. until Dr. Rabago evaluates him. It may be that we just observe him. I explained this to the patient and his today. I will be going out of town today. Dr. Yariel Smith and Dr. Corbin Mera will be evaluating the patient.
[2018-12-01] MEDS ORDERED: SODIUM CHLORIDE 0.9% 1000ML 1,000 ML IV SCH (14:15)
--- NOTE | 2018-12-01 14:53 | Pharmacy Report ---
Glycemic Control Consultation - Date of Service December 01, 2018 - Scope Scope: Glycemic Pharmacist consulted by Dr Ruiz on 12/01/18 for glycemic control and to write orders per [facility] inpatient glycemic control protocol - Objective Weight: 72.6 kg Accuchecks BSG (last 24hrs): 11/30/18 11/30/18 12/01/18 19:09 21:27 01:56 Glucose 312 H* POC Glucose 269 H 206 H 12/01/18 12/01/18 12/01/18 06:05 06:24 11:46 Glucose 238 H POC Glucose 207 H 167 H 12/01/18 13:04 Glucose POC Glucose 159 H Laboratory Data (last 24hrs): 11/30/18 11/30/18 12/01/18 19:09 19:18 06:24 Potassium 4.4 4.3 Carbon Dioxide 29 32 Anion Gap 7.0 5.0 Creatinine 1.09 Cancelled 1.00 Est Cr Clr Drug Dosing 62.2 Cancelled 67.8 Beta-Hydroxybutyric Acd 2.09 HbA1c: Hemoglobin A1c 10.0 % (4.5-5.6) H 12/01/18 06:24 - Recent Pertinent Medications Outpatient Anti-diabetic Regimen: * n/A - new diagnosis Risk Factors for Insulin Resistance: * Steroids: prednisone 20 mg BID * Infection: pneumothorax - currently on Zosyn and vancomycin * Diet: NPO - Assessment & Plan Assessment & Plan: ASSESSMENT: * Mr Patino is a 73 y/o M with a PMH of undiagnosed T2DM, possibly steroid induced. Patient's admitting blood sugar was over 300 mg/dL. Blood sugar this morning was 207 mg/dL. Since the patient is receiving prednisone, it makes since to utilize NPH BID to mimic the blood sugar spikes from prednisone. Give 15 units (0.2 units/kg for 20 mg of prednisone) the morning since patient has not had insulin. Scale for this evening of zero, weight-based stress of 1, and weight-bases stress of 2 since NPO. * For Novolog, started with weight-based stress of 3 to provide rapid insulin decrease. Since patient NPO loosen slightly. One overnight check to ensure patient has appropriate coverage. PLAN FOR INPATIENT GLYCEMIC CONTROL: * Basal insulin * NPH 15 units SQ x 1 then 0-12 units SQ BID * 0 units if blood sugar under 120 mg/dL * 7 units if blood sugar 120-160 mg/dL * 12 units if blood sugar over 160 mg/dL * Bolus insulin * NovoLog per scale ACHS or Q6hrs while NPO * Goal Range: Low 110 mg/dL - High 140 mg/dL * Correction Factor: 25 mg/dL/unit * Nutritional / Prandial insulin per carb ratio of 1 unit per 8 grams CHO consumed * Please note that the plan above was derived based on current level of insulin resistance and hospital stress. These recommendations are appropriate for inpatient admission only. Plan of care upon discharge will need to be reassessed to avoid potential outpatient hypo/hyperglycemia. Thank you.
--- NOTE | 2018-12-01 15:20 | Hospitalist Progress Note ---
Date of Service December 01, 2018 Assessment & Plan (1) Pneumothorax on right: (2) Subcutaneous emphysema: (3) Pneumomediastinum: per admitting service team: This is a 73yr M with a significant past medical history of right lung adenocarcinoma, usual interstitial pneumonitis, HTN, HLD, hypothyroidism, history of multilobar pneumonia 09/2018 presents to [facility] as a direct admission from Dr. Estevez's office secondary to increased shortness of breath and abnormal finding on outpatient CT scan. Soft tissue neck CT was obtained today which read soft tissue emphysema, right chest wall and neck right greater than left, pneumomediastinum and small right apical pneumothorax, Cavitary nodule at the left apex. This is concerning for a site of metastases given the history of lung adenocarcinoma. CT scan chest revealed extensive subcutaneous emphysema change, pneumomediastinum, small right apical pneumothorax, progressive infiltrative change in left lower lobe and left upper lobe. Due to his poor presentation and abnormal CT findings he was referred for direct admission. Pt directly admitted to medical telemetry Dr. Estevez- Thoracic Surgeon was consulted Placed on supplemental oxygen given pneumothorax continue outpt prednisone for UIP consult pulm Barium swallow in am. NPO after midnight Place on IV antibiotics for now - zosyn and vanco until infection entirely ruled out given CT scan 12/01/18 Barium Swallow: IMPRESSION: 1. Esophageal dysmotility, possibly presbyesophagus. No evidence of an esophageal perforation. 2. Pneumomediastinum, which is known. ENT consuted- Dr. Rabago to evaluate for possible perforation he recommends direct laryngoscopy, esophagoscopy Pneumomediastinum and Subcutaneous emphysema felt to be related to possible spread of Lung CA to the left upper lobe patient and family requested transfer to [facility] discussed with Dr. Garcia- [facility]- who kindly accepted patient may transfer via Ambulance with ALS- discussed with Dr. Mera (4) Adenocarcinoma of right lung: recent dx mucin producing adenoca of lung Follows [facility] and [facility] to be set up with outpt oncology in [facility] New cavitary lesion to RUBY concerning for metastasis Pulmonary consulted (5) New onset type 2 diabetes mellitus: new diagnosis from Prenidsone? BSGs in the 200s A1c 10 Pharmacy Glycemic control consulted Insulin Sliding Scale ordered follow up (6) Oral candidosis: tx with nystatin x 1 week Completing two week course of Diflucan 200mg daily on 12/07 (7) Interstitial lung disease: follows Dr. Viera, pulm and Dr. Estevez, Thoracic Continue prednisone 20mg bid--> taper to 30mg po daily x 3 days, etc. nebulizer tx, Breo (8) HTN (hypertension): blood pressure stable on atenolol, lisinopril/hctz (9) HLD (hyperlipidemia): continue statin (10) Hypothyroidism: continue levothyroxine (11) DVT prophylaxis: SCD/TEDS transfer to [facility] Subjective ff up for pneumomediastinum, subcutaneous emphysema seen sitting up in bed, comfortable states he feels fine overall denies chest pain, neck pain, shortness of breath, palpitations, dizziness denies other symptoms at baseline 2 L via nasal cannula Review of Systems Review of Systems: All systems reviewed & are unremarkable except as noted in HPI & below Physical Exam Physical Exam: General- oriented x 3, not in distress, speaks in sentences with no effort or accessory muscle use Head- atraumatic Eyes- PERRL, EOMI, anicteric ENT- oropharynx clear mild crepitus right side of the neck Neck- supple, no JVD, no adenopathy, no thyromegaly; carotids +2/2, no bruits appreciated Lungs- clear to auscultation bilaterally, no rales/wheezes Heart- normal rate, regular rhythm; no murmur, no gallop, no rub appreciated (+) crepitus upper chest right>left Abdomen- normal bowel sounds, nondistended, soft, nontender, no masses or hepatosplenomegaly Extremities- no pretibial edema, no calf tenderness; peripheral pulses intact Neuro- alert, oriented x 3; CN 2-12 grossly intact; motor 5/5 bilaterally;sensation 100% on all extremities; no other gross focal neurologic deficits Skin- warm & dry Results & Data Vital Signs (Past 12 Hours) Vital Signs Temp Pulse Pulse Resp BP BP Pulse Ox 12/01/18 12:18 36.5 C 79 16 151/99 H 98 12/01/18 10:17 96 H 16 135/97 12/01/18 08:00 63 12/01/18 07:20 36.7 C 70 17 149/93 H 98 12/01/18 07:01 90 14 98 12/01/18 04:00 36.9 C 72 18 147/91 H 100 Laboratory Results Laboratory Results - last 24 hr 11/30/18 11/30/18 11/30/18 19:09 19:18 21:27 WBC RBC Hgb Hct MCV MCH MCHC RDW Std Deviation RDW Coeff of Adriana Plt Count MPV Immature Gran % (Auto) Neut % (Auto) Lymph % (Auto) Mckean % (Auto) Eos % (Auto) Baso % (Auto) Immature Gran # (Auto) Neut # (Auto) Lymph # (Auto) Mckean # (Auto) Eos # (Auto) Baso # (Auto) Sodium 133 L Potassium 4.4 Chloride 97 L Carbon Dioxide 29 Anion Gap 7.0 BUN 29 H Creatinine 1.09 Cancelled Est Cr Clr Drug Dosing 62.2 Cancelled Est GFR ( Amer) 78.7 Cancelled Est GFR (Non-Af Amer) 67.9 Cancelled BUN/Creatinine Ratio 26.3 H Glucose 312 H* POC Glucose 269 H Estimat Average Glucose Hemoglobin A1c Calcium 9.3 Magnesium 2.4 Total Bilirubin 0.6 AST 37 ALT 95 H Alkaline Phosphatase 110 Total Protein 6.6 Albumin 3.3 L Globulin 3.3 Albumin/Globulin Ratio 1.0 Beta-Hydroxybutyric Acd 2.09 Nasal Screen MRSA (PCR) 11/30/18 12/01/18 12/01/18 Unknown 01:56 06:05 WBC RBC Hgb Hct MCV MCH MCHC RDW Std Deviation RDW Coeff of Adriana Plt Count MPV Immature Gran % (Auto) Neut % (Auto) Lymph % (Auto) Mckean % (Auto) Eos % (Auto) Baso % (Auto) Immature Gran # (Auto) Neut # (Auto) Lymph # (Auto) Mckean # (Auto) Eos # (Auto) Baso # (Auto) Sodium Potassium Chloride Carbon Dioxide Anion Gap BUN Creatinine Est Cr Clr Drug Dosing Est GFR ( Amer) Est GFR (Non-Af Amer) BUN/Creatinine Ratio Glucose POC Glucose 206 H 207 H Estimat Average Glucose Hemoglobin A1c Calcium Magnesium Total Bilirubin AST ALT Alkaline Phosphatase Total Protein Albumin Globulin Albumin/Globulin Ratio Beta-Hydroxybutyric Acd Nasal Screen MRSA (PCR) Negative 12/01/18 12/01/18 12/01/18 06:24 06:24 06:24 WBC 11.46 H RBC 3.86 L Hgb 13.8 L Hct 37.7 L MCV 97.7 MCH 35.8 H MCHC 36.6 H RDW Std Deviation 47.4 H RDW Coeff of Adriana 13.5 Plt Count 181 MPV 9.3 Immature Gran % (Auto) 0.7 Neut % (Auto) 92.9 Lymph % (Auto) 3.2 Mckean % (Auto) 3.1 Eos % (Auto) 0.1 Baso % (Auto) 0.0 Immature Gran # (Auto) 0.08 H Neut # (Auto) 10.65 H Lymph # (Auto) 0.37 L Mckean # (Auto) 0.35 Eos # (Auto) 0.01 Baso # (Auto) 0.00 Sodium 136 Potassium 4.3 Chloride 98 Carbon Dioxide 32 Anion Gap 5.0 BUN 23 H Creatinine 1.00 Est Cr Clr Drug Dosing 67.8 Est GFR ( Amer) 87.4 Est GFR (Non-Af Amer) 75.4 BUN/Creatinine Ratio 22.9 H Glucose 238 H POC Glucose Estimat Average Glucose 240 Hemoglobin A1c 10.0 H Calcium 8.6 Magnesium Total Bilirubin AST ALT Alkaline Phosphatase Total Protein Albumin Globulin Albumin/Globulin Ratio Beta-Hydroxybutyric Acd Nasal Screen MRSA (PCR) 12/01/18 12/01/18 11:46 13:04 WBC RBC Hgb Hct MCV MCH MCHC RDW Std Deviation RDW Coeff of Adriana Plt Count MPV Immature Gran % (Auto) Neut % (Auto) Lymph % (Auto) Mckean % (Auto) Eos % (Auto) Baso % (Auto) Immature Gran # (Auto) Neut # (Auto) Lymph # (Auto) Mckean # (Auto) Eos # (Auto) Baso # (Auto) Sodium Potassium Chloride Carbon Dioxide Anion Gap BUN Creatinine Est Cr Clr Drug Dosing Est GFR ( Amer) Est GFR (Non-Af Amer) BUN/Creatinine Ratio Glucose POC Glucose 167 H 159 H Estimat Average Glucose Hemoglobin A1c Calcium Magnesium Total Bilirubin AST ALT Alkaline Phosphatase Total Protein Albumin Globulin Albumin/Globulin Ratio Beta-Hydroxybutyric Acd Nasal Screen MRSA (PCR)
--- NOTE | 2018-12-01 15:33 | Discharge Summary ---
Date of Service December 01, 2018 Admission HPI Per Admitting Provider This is a 73yr M with a significant past medical history of right lung adenocarcinoma, usual interstitial pneumonitis, HTN, HLD, hypothyroidism, history of multilobar pneumonia 09/2018 presents to [facility] as a direct admission from Dr. Estevez's office secondary to increased shortness of breath and abnormal finding on outpatient CT scan. Soft tissue neck CT was obtained today which read soft tissue emphysema, right chest wall and neck right greater than left, pneumomediastinum and small right apical pneumothorax. Due to his poor presentation and abd CT findings he was referred for direct admission. Pt complaining of increased swelling to face and neck x 2 days. notice Tuesday night. Feels swelling has stayed the same, not worse. Pt complains of GARNICA, which has been chronic as of late given above diagnosis. No worsening of breathing given swelling. +productive cough but denies purulence. Further elicits lower extremity weakness, falls due to loss of muscle mass and inability to sheepskin pickler feet per . He denies any f/c/s, dizziness, lightheaded, chest pain, sob at rest, hemoptysis, n/v/d, change in bowel or urinary habits. Is requesting food due to not eating all day, because of appointments. States overall has decreased appetite due to decreased taste from thrush. Just finished 1 week course of nystatin swish/swallow and continues to take fluconazole for additional week. Of significance patient was hospitalized 09/26/2018-09/30/2018 secondary to shortness of breath x6 weeks. Diagnosed with multilobar pneumonia and underwent right bronchoscopy and thoracoscopy with lung biopsy by Dr. Estevez. Washings grew gram-negative rods but surgical culture was negative. Pathology positive for fibrosing usual interstitial pneumonitis. He also had follow-ups at [facility] in [facility] and was diagnosed with multilobar involvement with mucin producing adenocarcinoma of the lung. On 10/16 patient underwent right thoracentesis due to persistent right pneumothorax with effusion. Admission Exam Per Admitting Provider Gen: WD, thin, male, NAD, sitting up at bedside, pleasant, conversing easily, answers questions appropriately Head: Normocephalic, Atraumatic Eyes: Sclera normal, no conjunctival injection, PERRLA, EOMI ENT: Gross hearing intact, normal pharynx, mucous membranes moist, no thrush Neck: supple, No JVD, Resp: Clear to auscultation b/l with scattered rales throughout worse bibasilar, no wheeze, or rhonchi. Normal insp/exp effort, no accessory muscle use CV: Regular rate, regular rhythm, no murmur, rub, gallop, or ectopy Abd: +BS x 4, soft, nontender, nondistended Musculoskeletal: moves extremities active rom x 4, strength intact, good rawhide trimmer strength Extremities: No edema bilaterally Skin: warm, moist, no rash, negative turgor, cap refill < 2sec Neuro: Alert and oriented x 3, speech normal, good mood/affect, cran nerve 2-12 intact grossly : deferred Principal Diagnosis PNEUMOMEDIASTINUM, SUBCUTANEOUS EMPHYSEMA, LUNG CANCER Discharge Exam General- oriented x 3, not in distress, speaks in sentences with no effort or accessory muscle use Head- atraumatic Eyes- PERRL, EOMI, anicteric ENT- oropharynx clear mild crepitus right side of the neck Neck- supple, no JVD, no adenopathy, no thyromegaly; carotids +2/2, no bruits appreciated Lungs- clear to auscultation bilaterally, no rales/wheezes Heart- normal rate, regular rhythm; no murmur, no gallop, no rub appreciated (+) crepitus upper chest right>left Abdomen- normal bowel sounds, nondistended, soft, nontender, no masses or hepatosplenomegaly Extremities- no pretibial edema, no calf tenderness; peripheral pulses intact Neuro- alert, oriented x 3; CN 2-12 grossly intact; motor 5/5 bilaterally;sensation 100% on all extremities; no other gross focal neurologic deficits Skin- warm & dry Discharge Data Allergies Allergy/AdvReac Type Severity Reaction Status Date / Time No Known Allergies Allergy Verified 11/30/18 15:31 Consultations 11/30/18 17:13 Consult Thoracic Surgery Routine 11/30/18 17:16 Consult Case Management - Discharge Planning Routine 11/30/18 18:27 Consult Pulmonology Routine 12/01/18 12:00 Consult Otolaryngology (Head and Neck) Stat 12/01/18 14:21 Burn CD for patient Stat 12/01/18 15:24 Burn CD for patient Routine Ordered Studies 12/01/18 09:30 FL barium swallow Routine Hospital Course (1) Pneumothorax on right: (2) Subcutaneous emphysema: (3) Pneumomediastinum: per admitting service team: This is a 73yr M with a significant past medical history of right lung adenocar cinoma, usual interstitial pneumonitis, HTN, HLD, hypothyroidism, history of multilobar pneumonia 09/2018 presents to [facility] as a direct admission from Dr. Estevez's office secondary to increased shortness of breath and abnormal finding on outpatient CT scan. Soft tissue neck CT was obtained today which read soft tissue emphysema, right chest wall and neck right greater than left, pneumomediastinum and small right apical pneumothorax, Cavitary nodule at the left apex. This is concerning for a site of metastases given the history of lung adenocarcinoma. CT scan chest revealed extensive subcutaneous emphysema change, pneumomediastinum, small right apical pneumothorax, progressive infiltrative change in left lower lobe and left upper lobe. Due to his poor presentation and abnormal CT findings he was referred for direct admission. Pt directly admitted to medical telemetry Dr. Estevez- Thoracic Surgeon was consulted Placed on supplemental oxygen given pneumothorax continue outpt prednisone for UIP consult pulm Barium swallow in am. NPO after midnight Place on IV antibiotics for now - zosyn and vanco until infection entirely ruled out given CT scan 12/01/18 Barium Swallow: IMPRESSION: 1. Esophageal dysmotility, possibly presbyesophagus. No evidence of an esophageal perforation. 2. Pneumomediastinum, which is known. ENT consuted- Dr. Rabago to evaluate for possible perforation he recommends direct laryngoscopy, esophagoscopy Pneumomediastinum and Subcutaneous emphysema felt to be related to possible spread of Lung CA to the left upper lobe patient and family requested transfer to [facility] discussed with Dr. Garcia- [facility]- who kindly accepted patient may transfer via Ambulance with ALS- discussed with Dr. Mera (4) Adenocarcinoma of right lung: recent dx mucin producing adenoca of lung Follows [facility] and [facility] to be set up with outpt oncology in [facility] New cavitary lesion to RUBY concerning for metastasis Pulmonary consulted (5) Oral candidosis: tx with nystatin x 1 week Completing two week course of Diflucan 200mg daily on 12/07 (6) Interstitial lung disease: follows Dr. Viera, pulm and Dr. Estevez, Thoracic Continue prednisone 20mg bid--> taper to 30mg po daily x 3 days, etc. nebulizer tx, Sudhao (7) New onset type 2 diabetes mellitus: new diagnosis from Prenidsone? BSGs in the 200s A1c 10 Pharmacy Glycemic control consulted Insulin Sliding Scale ordered follow up (8) HTN (hypertension): blood pressure stable on atenolol, lisinopril/hctz (9) HLD (hyperlipidemia): continue statin (10) Hypothyroidism: continue levothyroxine (11) DVT prophylaxis: SCD/TEDS transfer to [facility] Total Time Total Time Spent Total Time Spent (In Minutes): 80 MINUTES Discharge Plan Discharge Items Patient Disposition: Transfer Acute Care Hospital Reason For Visit: RT APICAL PNEUMOTHORAX Discharge Diagnosis: PNEUMOMEDIASTINUM, SUBCUTANEOUS EMPHYSEMA Discharge Goals: Diagnostic testing and Therapeutic intervention Activity: As commented below Activity Comment: BEDREST Non-emergency contact: Primary Care Provider Call non-emergency contact if: you have any medication questions and you have a fever Follow-up/Referrals: Yesenia Isidro DO [Primary Care Provider] - Diet: See below Diet Comment: NPO STATUS Addtl Provider Instructions: PLEASE REFER TO ACCOMPANYING HOSPITAL DISCHARGE SUMMARY FOR FURTHER DETAILS. Prescriptions: Continued fluconazole 200 mg tablet 200 mg PO DAILY Qty: 14 RF: 0 multivitamin [Daily Multi-Vitamin] tablet 1 tab PO DAILY RF: 0 triamcinolone acetonide [Nasacort] 55 mcg aerosol,spray 2 sprays INTNAS DAILY RF: 0 ketoconazole 2 % shampoo 2 % topical UD RF: 0 prednisone 20 mg Tablet 20 mg PO BID RF: 0 simvastatin 20 mg Tablet 20 mg PO HS RF: 0 aspirin 81 mg Tablet,Chewable 81 mg PO HS RF: 0 lisinopril-hydrochlorothiazide 10-12.5 mg Tablet 1 tab PO DAILY RF: 0 atenolol 50 mg Tablet 100 mg PO DAILY RF: 0 levothyroxine 100 mcg Capsule 100 mcg PO DAILY RF: 0 Breo Ellipta 100-25 mcg/dose Blister With Device 1 inh INHALATION DAILY RF: 0 ipratropium-albuterol 0.5 mg-3 mg(2.5 mg base)/3 mL Solution For Nebulization 3 ml INHALATION TID RF: 0 Stand-Alone Forms: [facility] Discharge Orders: Discharge Order (Routine); Ordered 12/01/18 Ordered By: Charlie Ruiz Admission Data Admit Date/Time: 11/30/18 17:18 Attending Provider: Charlie Ruiz Admit Provider: Phuong Dominguez Primary Care Provider: Yesenia Isidro Other Providers: Corbin Estevez ; Corbin Mera ; Natasha Rabago Service: Telemetry Medical Other Interventions: Discharge Summary Assessment (RN) Last Done: 12/01/18 15:16
--- NOTE | 2018-12-01 15:58 | ENT Consultation ---
Date of Consultation December 01, 2018 Assessment & Plan (1) Subcutaneous emphysema: Chart and CT scans were reviewed there is significant mediastinal emphysema and subcutaneous emphysema involving the anterior and posterior neck. Due to increasing swelling and increasing subcutaneous emphysema and voice change the possibility of ICU monitoring with the possibility of tracheostomy was explained at length to the patient and his . They both requested transfer to [facility] for further management. History of Present Illness Reason for Consultation: Swollen neck Attending Physician: Charlie Ruiz MD History of Present Illness 73-year-old male with history of adenocarcinoma of the lung admitted yesterday for mediastinal emphysema now has swelling in the neck with subcutaneous emphysema and consultation was requested by Dr. Estevez. Allergies Allergy/AdvReac Type Severity Reaction Status Date / Time No Known Allergies Allergy Verified 11/30/18 15:31 Home Medications Home Medications Medication Instructions Recorded Confirmed Type Breo Ellipta 1 inh INHALATION DAILY 09/22/18 11/30/18 History aspirin 81 mg PO HS 09/22/18 11/30/18 History atenolol 100 mg PO DAILY 09/22/18 11/30/18 History levothyroxine 100 mcg PO DAILY 09/22/18 11/30/18 History lisinopril-hydrochlorothiazide 1 tab PO DAILY 09/22/18 11/30/18 History simvastatin 20 mg PO HS 09/22/18 11/30/18 History ipratropium-albuterol 3 ml INHALATION TID 09/26/18 11/30/18 History prednisone 20 mg PO BID 10/16/18 11/30/18 History ketoconazole 2 % shampoo 2 % TOPICAL UD ml 11/22/18 11/30/18 History multivitamin tablet 1 tab PO DAILY 11/22/18 11/30/18 History triamcinolone acetonide 55 mcg 2 sprays INTNAS DAILY 11/22/18 11/30/18 History nasal spray aerosol fluconazole 200 mg tablet 200 mg PO DAILY #14 tab 11/23/18 11/30/18 Rx Patient History Medical History Allergic rhinitis Shortness of breath Bilateral pneumonia Hypothyroidism (Chronic) HLD (hyperlipidemia) (Chronic) Pulmonary fibrosis (Acute) Surgical History S/P bronchoscopy (Resolved) H/O arthroscopic knee surgery (Chronic) right knee History of bilateral cataract extraction (Chronic) History of carpal tunnel release of both wrists (Chronic) History of tonsillectomy (Chronic) Family History Other Heart disease Stroke Social History Preferred Language: Mongolian Communication Ability: Effective [employer] Spr[employer] Required: Yes and No Beliefs That Will Affect Care: None Current Living Situation: Spouse Other Information That Helps Us Care for You: No Feels Safe at Home: Yes Safety Concerns: Feels Safe At This Time Smoking Status: Former smoker Tobacco Type: cigarettes ; Cigarettes Per Day: 20 ; Second Hand Exposure: No ; Hx Alcohol Use: Yes Alcohol type: beer Hx Substance Use: No Physical Exam Constitutional: WD/WN, vitals as above Eyes: PERRL, conjunctivae normal, anicteric sclerae ENMT: external ear and nose normal, oropharynx normal Neck: + neck crepitus Very swollen with subcutaneous emphysema Respiratory: normal respiratory effort, lungs clear to auscultation Cardiovascular: RRR, no murmur, no edema Results & Data Vital Signs (Past 12 Hours) Vital Signs Temp Pulse Pulse Resp BP BP Pulse Ox 12/01/18 15:27 36.8 C 71 18 132/84 98 12/01/18 15:16 36.5 C 79 16 135/97 151/99 H 98 12/01/18 12:18 36.5 C 79 16 151/99 H 98 12/01/18 10:17 96 H 16 135/97 12/01/18 08:00 63 12/01/18 07:20 36.7 C 70 17 149/93 H 98 12/01/18 07:01 90 14 98 12/01/18 04:00 36.9 C 72 18 147/91 H 100
[2018-12-02] MEDS ORDERED: VANCOMYCIN TROUGH ONE (07:30)
== END 2018-12-01 19:42 | disposition short-term general hospital (02) | DRG 199 ==
LOC: 3N 17:18 → 2N 17:36

== ENCOUNTER 2018-12-27 18:36 | Inpatient (IN) ==
[2018-12-27] MEDS ORDERED: SODIUM CHLORIDE 0.9% 1000ML 500 ML IV ONE (18:56)
[2018-12-27] MEDS ORDERED: ALBUT/IPRATROP 3MG/0.5MG NEB 3 ML VIAL NEB STA (18:56)
[2018-12-27] MEDS ORDERED: LEVALBUTEROL 1.25MG/0.5ML NEB NEB STA (18:57)
--- NOTE | 2018-12-27 19:20 | XRay Report ---
XR chest 1V portable CLINICAL HISTORY: 73 years-old Male presenting with Chest Pain. TECHNIQUE: Portable upright AP view of the chest was obtained. COMPARISON: 12/01/2018. FINDINGS: Resolution of prior soft tissue emphysema. Cardiac silhouette enlarged, increased from prior. Interva l increase in the peripheral and mid to basilar predominant bilateral opacities. Pulmonary vascular p rominence is new from prior. Increased perihilar densities. Small right pleural effusion may be prese nt. No large pneumothorax. Postsurgical changes of the right apex suggested. Degenerative changes of the thoracic spine. Degenerative changes of the glenohumeral joints. Mild gaseous distention of bowel . IMPRESSION: 1. Significant interval increase in bilateral peripheral and basilar predominant infiltrates. 2. Superimposed volume overload and edema suspected. Electronically signed by: López Santos M.D. 12/27/2018 7:19 PM
[2018-12-27 19:46] LABS: Hematocrit (blood only) 35.2 % (42-52); Hemoglobin 12.5 g/dL (14.0-18.0); Mean Corpuscular Hemoglobin 35.8 pg (25-34); Mean Corpuscular Hgb Conc 35.5 g/dL (32-36); Mean Corpuscular Volume 100.9 fL (80-100); Mean Platelet Volume 9.6 fL (7.4-10.4); Platelet Count 297 K/uL (130-400); RDW Coefficient of Variation 14.5 % (11.5-14.5); RDW Standard Deviation 53.3 fL (36.4-46.3); Red Blood Count 3.49 M/uL (4.7-6.1); White Blood Count 14.68 K/uL (4.8-10.8)
[2018-12-27 19:51] LABS: iSTAT Creatinine 0.6 mg/dl (0.6-1.3); iSTAT Hemoglobin 11.9 g/dl (14.0-18.0); iSTAT Ionized Calcium 1.14 mmol/l (1.12-1.32)
[2018-12-27 19:52] LABS: INR 1.1 (0.9-1.1); Prothrombin Time 11.6 Seconds (9.0-12.0)
[2018-12-27 20:00] LABS: Oxygen Saturation VBG 94.4 %; pH VBG 7.51 (7.36-7.41)
[2018-12-27 20:03] LABS: Albumin Level 2.3 gm/dl (3.4-5.0); BUN Creatinine Ratio 30.4 (10-20); Creatinine Clr Calc Pharmacy 102.7 ml/min; Est GFR (African American) 112.7; Est GFR (Non-African American) 97.3; Magnesium 2.3 mg/dl (1.8-2.4)
[2018-12-27] MEDS ORDERED: OPTIRAY 320 125ml IV PRN (20:19)
[2018-12-27 20:25] LABS: Basophils # (auto) 0.03 K/uL (0-0.2); Basophils % (auto) 0.2 %; Immature Granulocytes # (auto) 0.11 K/uL (0.00-0.02); Immature Granulocytes % (auto) 0.7 %; Lymphocytes # (auto) 0.38 K/uL (1.2-3.4); Lymphocytes % (auto) 2.6 %; Monocytes # (auto) 0.23 K/uL (0.11-0.59); Monocytes % (auto) 1.6 %; Neutrophils # (auto) 13.93 K/uL (1.4-6.5); Neutrophils % (auto) 94.9 %; Rouleaux 1+
[2018-12-27 20:32] LABS: Albumin Globulin Ratio 0.5 (0.9-2); Bilirubin,Total 0.7 mg/dl (0.2-1); Globulin 4.8 gm/dl (2.5-4.0); Phosphorus 3.2 mg/dl (2.5-4.9); Thyroid Stimulating Hormone 0.349 uIu/ml (0.300-4.500); Total Protein 7.1 gm/dl (6.4-8.2); Troponin I 0.314 ng/ml (0-0.045)
--- NOTE | 2018-12-27 20:41 | CT Scan Report ---
CT angio chest PE protocol CLINICAL HISTORY: 73 years-old Male presenting with shortness of breath, atypical chest pain, clinica l concern for pulmonary embolus. TECHNIQUE: Multidetector CT angiography of the chest was performed after administration of intravenou s contrast. 3-D volumetric and/or maximum intensity projection (MIP) images were subsequently reconst ructed for review. IV contrast: 116 mL of Optiray 320. One or more dose lowering techniques were used consistent with the principles of ALARA (as low as reasonably achievable), including automatic expos ure control, mA or kV adjustment to individual patient size, and/or use of iterative reconstruction. COMPARISON: 11/30/[address] DOSE (mGy.cm): The estimated cumulative dose is 293.49 mGy.cm. FINDINGS: Risk Engineer topogram: Unremarkable. Pulmonary vasculature: The study is adequate for assessment of the pulmonary vascular tree. Suboptimal opacification of dist al right lower lobe pulmonary arterial branches is most likely related to delayed opacification rathe r than filling defects. No convincing evidence of a filling defect within the pulmonary arteries to s uggest embolus. Abnormal size of the main pulmonary artery. No flattening of the interventricular sep bogdan. No intracardiac filling defect. Reflux of contrast into the intrahepatic IVC. Remaining chest: Soft tissues: Normal thyroid and thoracic inlet. Mediastinal lymph nodes in the prevascular region lau ve increased in prominence. An aortopulmonary window lymph node measures 15 mm in short axis. Additio nal paratracheal and subcarinal lymph nodes are enlarged. Right hilar lymph nodes are also suggested. Atherosclerosis of the aorta. Multichamber enlargement of the heart. Coronary artery calcification. Small right pleural effusion. Upper abdomen normal. Lungs and airways: Pneumomediastinum noted. New complete resolution of prior soft tissue emphysema. N o pneumothorax. Dilated trachea and bronchi diffusely. Significant interval increase in consolidation diffusely though most pronounced in the left apex, where there is now a 4.9 cm cavitary masslike con solidation with air on prior there was a subcentimeter lesion. Extensive surrounding groundglass opac ity. Redemonstration of by basilar predominant peripheral consolidation, calcification, and bronchiec tasis. Increasing opacities in these regions is also noted. Musculoskeletal: Degenerative changes of the spine. IMPRESSION: 1. Interval development of a nearly 5 cm cavitary lesion with extensive surrounding groundglass infi ltrate in the left upper lobe. This is highly concerning for a lung abscess given the short-term inte rval. 2. Extensive interval worsening of multifocal peripheral and basilar predominant consolidation. This could represent superimposed infection or aspiration on a background of chronic fibrotic lung diseas e. 3. Right pleural effusion increased from prior. 4. Interval development of mediastinal lymphadenopathy, likely reactive. 5. No convincing evidence of a pulmonary embolus. Electronically signed by: López Santos M.D. 12/27/2018 8:39 PM
[2018-12-27] MEDS ORDERED: PIPERACILLIN/TAZOBACTAM 4.5 GM/120 ML BAG IV ONE (20:53)
[2018-12-27] MEDS ORDERED: PIPERACILL/TAZOBAC CONSULT ACTIVE PRN (20:53)
[2018-12-27] MEDS ORDERED: VANCOMYCIN HCL 1,500 MG in SODIUM CHLORIDE 0.9% 500 ML IV ONE (20:53)
[2018-12-27] MEDS ORDERED: VANCOMYCIN CONSULT ACTIVE PRN (20:53)
[2018-12-27] MEDS ORDERED: SODIUM CHLORIDE 0.9% 500 ML IV STA (21:50)
[2018-12-27] MEDS ORDERED: SULFAMETHOXAZOLE/TRIMETHOPRIM DS 800/160MG TAB PO ONE (21:51)
[2018-12-27] MEDS ORDERED: methylPREDNISolone 40 MG in SYRINGE 0 ML IV STA (22:22)
[2018-12-27] MEDS ORDERED: FUROSEMIDE 20 MG in SYRINGE 0 ML IV ONE (22:22)
--- NOTE | 2018-12-27 22:25 | Emergency Department Note ---
Entered by Andreina Whiteside acting as a scribe for Justus Galindo MD History of Present Illness General Chief complaint: Confusion Stated complaint: WEAKNESS, LETHARGIC Time Seen by Provider: 12/27/18 18:43 Source: patient and other (Nurse) Mode of arrival: EMS History of Present Illness Onset (ago): day(s) 1 Location: head (Confusion) Pain Consistency: + other (Worsening) Quality: + other (Confusion) Associated symptoms: + confusion, + shortness of breath and + weakness Treatments prior to arrival: other (Supplemental oxygen) The patient is a 73 year old male presenting to the Emergency Department via EMS complaining of worsening confusion staring 1 day ago. The patients nurse reports that the patients family called EMS because the patient has been more confused than normal. She states that EMS reported that the patient was weaker than normal. She explains that the patient was recently diagnosed with lung cancer and received supplemental oxygen from EMS [employer]. She notes that the patient was not complaining of any pain. The patient reports that he does not feel confused. He states that he is short of breath. He notes that he was recently diagnosed with lung cancer. He denies recent use of blood thinners. Home Medications Home Medications Medication Instructions Recorded Confirmed Type aspirin 81 mg PO HS 09/22/18 12/27/18 History levothyroxine 100 mcg PO DAILY 09/22/18 12/27/18 History simvastatin 20 mg PO HS 09/22/18 12/27/18 History ipratropium-albuterol 3 ml INHALATION TID 09/26/18 12/27/18 History multivitamin tablet 1 tab PO DAILY 11/22/18 12/27/18 History triamcinolone acetonide 55 mcg 2 sprays INTNAS DAILY 11/22/18 12/27/18 History nasal spray aerosol fluconazole 200 mg tablet 200 mg PO DAILY #14 tab 11/23/18 12/27/18 Rx glipizide 0 mg PO DAILY 12/27/18 12/27/18 History lorazepam 0.5 mg PO AMPM 12/27/18 12/27/18 History prednisone 30 mg PO DAILY 12/27/18 12/27/18 History simvastatin 20 mg PO HS 12/27/18 12/27/18 History sulfamethoxazole-trimethoprim 1 tab PO QPM 12/27/18 12/27/18 History Allergies Allergy/AdvReac Type Severity Reaction Status Date / Time No Known Allergies Allergy Verified 12/27/18 20:09 Past Med/Surg History Medical History Lung cancer Allergic rhinitis Shortness of breath Bilateral pneumonia Hypothyroidism (Chronic) HLD (hyperlipidemia) (Chronic) Pulmonary fibrosis (Acute) Surgical History S/P bronchoscopy (Resolved) H/O arthroscopic knee surgery (Chronic) right knee History of bilateral cataract extraction (Chronic) History of carpal tunnel release of both wrists (Chronic) History of tonsillectomy (Chronic) Family History Other Heart disease Stroke Social History Preferred Language: [place]ican Communication Ability: Effective 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 and A total of 10 systems reviewed and were otherwise negative Physical Exam Vital Signs Vital Signs - 24 hr 12/27/18 18:35 12/27/18 18:53 12/27/18 19:44 Temperature 36.4 C L Temperature Source Oral Sepsis Recent Fever Within 48 Hours No Sepsis New/Unexplained Change in Mental Status No Sepsis Action Taken by Nursing No Action Required Pulse Rate 123 H Pulse Rate [Right Finger] Pulse Rate from SpO2 Sensor Respiratory Rate 35 H Respiratory Effort / Characteristics Non-Labored Respiratory Depth Normal Respiratory Pattern Regular Blood Pressure 116/90 Blood Pressure [Left Arm] Blood Pressure Mean 98 Blood Pressure Mean [Left Arm] Pulse Oximetry 94 93 95 Oxygen Delivery Method Nasal Cannula Nasal Cannula Nasal Cannula Oxygen Flow Rate 6 6 6 12/27/18 19:47 12/27/18 21:32 12/27/18 23:00 Temperature Temperature Source Sepsis Recent Fever Within 48 Hours Sepsis New/Unexplained Change in Mental Status Sepsis Action Taken by Nursing Pulse Rate 100 H Pulse Rate [Right Finger] 119 H 99 H Pulse Rate from SpO2 Sensor 104 H Respiratory Rate 30 H 20 27 H Respiratory Effort / Characteristics Spontaneous Moaning Short of Breath Non-Labored Respiratory Depth Normal Respiratory Pattern Regular Blood Pressure Blood Pressure [Left Arm] 111/80 Blood Pressure Mean Blood Pressure Mean [Left Arm] 90 Pulse Oximetry 92 99 94 Oxygen Delivery Method Nasal Cannula Room Air Nasal Cannula Oxygen Flow Rate 5 6 12/27/18 23:30 Temperature 36.7 C Temperature Source Sepsis Recent Fever Within 48 Hours Sepsis New/Unexplained Change in Mental Status Sepsis Action Taken by Nursing Pulse Rate 122 H Pulse Rate [Right Finger] Pulse Rate from SpO2 Sensor Respiratory Rate 32 H Respiratory Effort / Characteristics Respiratory Depth Respiratory Pattern Blood Pressure 132/101 H Blood Pressure [Left Arm] Blood Pressure Mean 111 Blood Pressure Mean [Left Arm] Pulse Oximetry 94 Oxygen Delivery Method Nasal Cannula Oxygen Flow Rate 6 GENERAL: Awake, alert, ill-appearing, in no distress HENT: Normocephalic, atraumatic. Oropharynx with dry mucous membranes and otherwise unremarkable. EYES: Normal conjunctiva. Sclera non-icteric. NECK: Supple. No nuchal rigidity. FROM. No JVD. RESPIRATORY: Midly dyspneic. Intermittent wheezes and rhonchi with diminished breath sounds at the bases. CARDIAC: Tachycardic rate, normal rhythm. Extremities warm and well perfused. Pu lses equal. ABDOMEN: Soft, non-distended. No tenderness to palpation. No rebound or guarding. No masses. RECTAL: Deferred. MUSCULOSKELETAL: Chest examination reveals no tenderness. The back is symmetr ical on inspection without obvious abnormality. There is no CVA tenderness to palpation. No joint edema. LOWER EXTREMITIES: Calves are equal size bilaterally and non-tender. No discoloration. Scant bilateral lower extremity edema. NEURO: Normal sensorium. No sensory or motor deficits noted. SKIN: No rash or jaundice noted. Course 1849: The patient was evaluated in room B6, and a complete history and physical examination were performed. 0: I reviewed the patient medical records from his previous stay at [facility]. He was transferred to [facility] for tertiary care evaluation. He was put on antibiotics to treat a small apical PTX. 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 Administered Medications Ioversol (Optiray 320 125ml) 116 ml IV ONCE PRN PRN Reason: Interaction Checking Stop: 12/31/18 20:18 Last Admin: 12/27/18 20:19 Dose: 116 ml Documented by: [id number] Discontinued Medications Albuterol (Duoneb) 3 ml NEB NOW STA Stop: 12/27/18 18:57 Last Admin: 12/27/18 19:45 Dose: Not Given Documented by: [id number] Sodium Chloride (Nss 1000ml) 500 mls @ 999 mls/hr IV .Q31M ONE Stop: 12/27/18 19:26 Last Infusion: 12/27/18 21:31 Dose: 0 mls/hr Documented by: [id number] Admin: 12/27/18 20:02 Dose: 999 mls/hr Documented by: [id number] Piperacillin Sod/Tazobactam Sod (Zosyn) 4.5 gm in 120 mls @ 240 mls/hr IV NOW ONE Stop: 12/27/18 21:22 Last Infusion: 12/27/18 23:26 Dose: 0 mls/hr Documented by: [id number] Admin: 12/27/18 22:09 Dose: 240 mls/hr Documented by: [id number] Vancomycin HCl 1,500 mg/ (Sodium Chloride) 530 mls @ 200 mls/hr IV NOW ONE Stop: 12/27/18 23:31 Last Admin: 12/27/18 22:42 Dose: 200 mls/hr Documented by: [id number] Sodium Chloride (Nss) 500 mls @ 125 mls/hr IV .Q4H STA Stop: 12/28/18 01:49 Last Admin: 12/27/18 23:27 Dose: Not Given Documented by: [id number] Methylprednisolone 40 mg/ (Syringe) 0.64 mls @ 1.5 mls/min IV NOW STA Stop: 12/27/18 22:23 Last Admin: 12/27/18 23:46 Dose: 1.5 mls/min Documented by: [id number] Furosemide 20 mg/ Syringe 2 mls @ 4 mls/min IV ONE ONE Stop: 12/27/18 22:23 Last Admin: 12/27/18 23:46 Dose: 4 mls/min Documented by: [id number] Levalbuterol HCl (Xopenex 1.25mg/0.5ml Neb) 1.25 mg NEB NOW STA Stop: 12/27/18 18:58 Last Admin: 12/27/18 19:46 Dose: 1.25 mg Documented by: [id number] Trimethoprim/Sulfamethoxazole (Septra Ds 800/160mg Tab) 1 tab PO NOW ONE Stop: 12/27/18 21:52 Last Admin: 12/27/18 23:46 Dose: 1 tab Documented by: [id number] Medical Decision Making Differential Diagnosis Differential diagnoses includes but is not limited to pneumonia, bronchitis, COPD/Asthma exacerbation, pneumothorax, pulmonary embolism, congestive heart fa ilure, acute coronary syndrome. Medical Records Attestation: I reviewed the patient's medical records. Home Medications Current Medication List: was personally reviewed by me Laboratory Data Attestation: I reviewed the patient's lab results. Result diagrams: 12/27/18 19:18 12/27/18 19:18 Lab Results 12/27/18 12/27/18 12/27/18 Range/Units 19:18 19:18 19:18 WBC 14.68 H (4.8-10.8) K/uL RBC 3.49 L (4.7-6.1) M/uL Hgb 12.5 L (14.0-18.0) g/dL POC Hgb (14.0-18.0) g/dl Hct 35.2 L (42-52) % POC Hct (42-52) % MCV 100.9 H (80-100) fL MCH 35.8 H (25-34) pg MCHC 35.5 (32-36) g/dL RDW Std Deviation 53.3 H (36.4-46.3) fL RDW Coeff of Adriana 14.5 (11.5-14.5) % Plt Count 297 (130-400) K/uL MPV 9.6 (7.4-10.4) fL Immature Gran % (Auto) 0.7 % Neut % (Auto) 94.9 % Lymph % (Auto) 2.6 % Doddridge % (Auto) 1.6 % Eos % (Auto) 0.0 % Baso % (Auto) 0.2 % Immature Gran # (Auto) 0.11 H (0.00-0.02) K/uL Neut # (Auto) 13.93 H (1.4-6.5) K/uL Lymph # (Auto) 0.38 L (1.2-3.4) K/uL Doddridge # (Auto) 0.23 (0.11-0.59) K/uL Eos # (Auto) 0.00 (0-0.5) K/uL Baso # (Auto) 0.03 (0-0.2) K/uL Rouleaux 1+ PT 11.6 (9.0-12.0) Seconds INR 1.1 (0.9-1.1) VBG pH (7.36-7.41) VBG pCO2 (38-50) mmHg VBG pO2 mmHg VBG HCO3 mmol/L VBG O2 Saturation % VBG Base Excess mEq/L Barometric Pressure mm/Hg POC Sodium (135-144) mEq/L Sodium 133 L (136-145) mmol/L POC Potassium (3.3-5.0) mEq/L Potassium 4.0 (3.5-5.1) mmol/L POC Chloride (101-112) mEq/L Chloride 96 L (98-107) mmol/L Carbon Dioxide 28 (21-32) mmol/L POC Total CO2 (24-31) mEq/l Anion Gap 9.0 (3-11) POC Anion Gap (16-25) mmol/L POC BUN (7-18) mg/dl BUN 20 H (7-18) mg/dl Creatinine 0.66 (0.6-1.4) mg/dl POC Creatinine (0.6-1.3) mg/dl Est Cr Clr Drug Dosing 102.7 ml/min Est GFR ( Amer) 112.7 Est GFR (Non-Af Amer) 97.3 BUN/Creatinine Ratio 30.4 H (10-20) Glucose 140 H (70-99) mg/dl POC Glucose (other) (70-99) mg/dl Lactate (0.4-2.0) mmol/L Calcium 9.0 (8.5-10.1) mg/dl POC Ioniz Calcium Kristyn (1.12-1.32) mmol/l Phosphorus 3.2 (2.5-4.9) mg/dl Magnesium 2.3 (1.8-2.4) mg/dl Total Bilirubin 0.7 (0.2-1) mg/dl AST 125 H (15-37) U/L ALT 288 H (12-78) U/L Alkaline Phosphatase 270 H (45-117) U/L Troponin I 0.314 H* (0-0.045) ng/ml NT-Pro-B Natriuret Pep 98878 H (0-900) pg/ml Total Protein 7.1 (6.4-8.2) gm/dl Albumin 2.3 L (3.4-5.0) gm/dl Globulin 4.8 H (2.5-4.0) gm/dl Albumin/Globulin Ratio 0.5 L (0.9-2) Lipase 61 L (73-393) U/L TSH 0.349 (0.300-4.500) uIu/ml 12/27/18 12/27/18 12/27/18 Range/Units 19:29 19:29 19:36 WBC (4.8-10.8) K/uL RBC (4.7-6.1) M/uL Hgb (14.0-18.0) g/dL POC Hgb 11.9 L (14.0-18.0) g/dl Hct (42-52) % POC Hct 35 L (42-52) % MCV (80-100) fL MCH (25-34) pg MCHC (32-36) g/dL RDW Std Deviation (36.4-46.3) fL RDW Coeff of Adriana (11.5-14.5) % Plt Count (130-400) K/uL MPV (7.4-10.4) fL Immature Gran % (Auto) % Neut % (Auto) % Lymph % (Auto) % Doddridge % (Auto) % Eos % (Auto) % Baso % (Auto) % Immature Gran # (Auto) (0.00-0.02) K/uL Neut # (Auto) (1.4-6.5) K/uL Lymph # (Auto) (1.2-3.4) K/uL Doddridge # (Auto) (0.11-0.59) K/uL Eos # (Auto) (0-0.5) K/uL Baso # (Auto) (0-0.2) K/uL Rouleaux PT (9.0-12.0) Seconds INR (0.9-1.1) VBG pH 7.51 H (7.36-7.41) VBG pCO2 33 L (38-50) mmHg VBG pO2 71 mmHg VBG HCO3 26 mmol/L VBG O2 Saturation 94.4 % VBG Base Excess 3.0 mEq/L Barometric Pressure 734.5 mm/Hg POC Sodium 132 L (135-144) mEq/L Sodium (136-145) mmol/L POC Potassium 4.0 (3.3-5.0) mEq/L Potassium (3.5-5.1) mmol/L POC Chloride 95 L (101-112) mEq/L Chloride (98-107) mmol/L Carbon Dioxide (21-32) mmol/L POC Total CO2 26 (24-31) mEq/l Anion Gap (3-11) POC Anion Gap 16.0 (16-25) mmol/L POC BUN 20 H (7-18) mg/dl BUN (7-18) mg/dl Creatinine (0.6-1.4) mg/dl POC Creatinine 0.6 (0.6-1.3) mg/dl Est Cr Clr Drug Dosing ml/min Est GFR ( Amer) Est GFR (Non-Af Amer) BUN/Creatinine Ratio (10-20) Glucose (70-99) mg/dl POC Glucose (other) 149 H (70-99) mg/dl Lactate 1.8 (0.4-2.0) mmol/L Calcium (8.5-10.1) mg/dl POC Ioniz Calcium Kristyn 1.14 (1.12-1.32) mmol/l Phosphorus (2.5-4.9) mg/dl Magnesium (1.8-2.4) mg/dl Total Bilirubin (0.2-1) mg/dl AST (15-37) U/L ALT (12-78) U/L Alkaline Phosphatase (45-117) U/L Troponin I (0-0.045) ng/ml NT-Pro-B Natriuret Pep (0-900) pg/ml Total Protein (6.4-8.2) gm/dl Albumin (3.4-5.0) gm/dl Globulin (2.5-4.0) gm/dl Albumin/Globulin Ratio (0.9-2) Lipase (73-393) U/L TSH (0.300-4.500) uIu/ml Imaging Data Radiologist's Impression: Radiology results as stated below per my review and the radiologist's interpretation: XR chest 1V portable CLINICAL HISTORY: 73 years-old Male presenting with Chest Pain. TECHNIQUE: Portable upright AP view of the chest was obtained. COMPARISON: 12/01/2018. FINDINGS: Resolution of prior soft tissue emphysema. Cardiac silhouette enlarged, increased from prior. Interval increase in the peripheral and mid to basilar predominant bilateral opacities. Pulmonary vascular prominence is new from prior. Increased perihilar densities. Small right pleural effusion may be present. No large pneumothorax. Postsurgical changes of the right apex suggested. Degenerative changes of the thoracic spine. Degenerative changes of the glenohumeral joints. Mild gaseous distention of bowel. IMPRESSION: 1. Significant interval increase in bilateral peripheral and basilar predominant infiltrates. 2. Superimposed volume overload and edema suspected. Electronically signed by: López Santos M.D. 12/27/2018 7:19 PM ECG Data Attestation: I personally reviewed and interpreted this ECG as follows: Indication: SOB/dyspnea Rate (beats per minute): 118 Rhythm: sinus tachycardia Findings: + other (LVH.); no acute ischemic change Blood Pressure Blood Pressure Findings: Elevated blood pressure MDM Narrative EKG demonstrates sinus tachycardiaThe patient is a pleasant 73-year-old gentleman with a complicated recent past medical history including interstitial adenocarcinoma of the lung, recent pneumothorax and subcutaneous emphysema which was resolved with observation, pneumonia who presents emergency department from home with worsening shortness of breath with labored breathing and confusion with hypoxia on his home 2 L nasal cannula per hpi. On arrival patient is ill- appearing, mildly dyspneic but in no acute distress, afebrile with heart rate in 130s, requiring 6 L nasal cannula to obtain low 90s saturation. On exam the patient does have dry mucous membranes but bilateral lower extremity edema. He has scattered wheezes and rhonchi with diminished breath sounds at the bases. EKG demonstrates sinus tachycardia with anterior T wave inversions which are new from prior. Chest x-ray shows increasing bilateral peripheral and basilar infiltrates with likely component of volume overload. WBC 14.6, H/H 12.5/35.2 and platelets within normal limits. VBG with pH of 7.5 with PCO2 of 33, likely related to the patient's tachypnea. Chemistry without acidosis. Creatinine within normal limits and BUN/creatinine >30, which suggest a component of intravascular depletion. Lactate within normal limits. Patient's troponin is elevated at 0.3 which is new from prior. BNP is elevated at 10K which is likely related to right heart strain from the patient's extensive pulmonary disease. Bedside echo did demonstrate enlarged right ventricle however no bowing of the septum at this time. CTA of the chest negative for PE however does demonstrate extensive progression of his disease with increased progression of his bilateral infiltrates as well as the development of a new 5 cm cavitary lesion which given its short interval progression is suspicious for abscess. Patient was ordered for Zosyn and vancomycin as well as given his scheduled Bactrim. Case was discussed with Dr. Estevez, CT surgery who is familiar with the patient from his prior admission who further confirms the patient's severe disease and poor overall prognosis and believes that patient can managed here at [facility] as the mainstay of his treatment will be antibiotics and supportive care. There is unlikely to be any treatment that could be provided additionally at a tertiary care center at this time given his poor overall prognosis. I did review this with the family who did express understanding. The patient initially was r equesting to be discharge however I did explain to him that going home in his current state certainly would be in effect accepting a rapid decline in his health and essentially entering into palliative/hospice care. The patient's also did express interest in reviewing the findings with the patient's specialist at [facility] with hope that they may have some therapy that he would benefit from. However, ultimately, all were agreeable, including the patient's close family friend who is an RN, for admission here for further treatment and possible further discussions with the patient's specialist at [place] in the morning. Patient was reevaluated and heart rate was improved after IV fluid hydration and initiation of ABX. Certainly however patient will likely require a combination of hydration and diuresis given PNA as well as evidence of overload on imaging. Case was discussed with Dr. Juarez, [facility] hospitalist, who will evaluate the patient for admission. Case additionally discussed with Jos Huerta, ICU PA-C who will also manage the patient in the ICU. Impression & Plan Lung cancer, Elevated troponin, Elevated brain natriuretic peptide (BNP) level, Multifocal pneumonia, Cavitary lesion of lung Critical Care Time Critical Care Time: Yes Total Critical Care Time: 35 I have personally spent greater than 35 minutes of critical care time in the direct management of this patient. This includes bedside care, interpretation of diagnostic studies, and testing, discussion with consultants, patient, and family members, and other required patient management activities. This 35 minutes is in excess of all separately billable procedures. Discharge Plan Visit Data Chief Complaint: Confusion Stated Complaint: WEAKNESS, LETHARGIC ED Provider: Justus Galindo Discharge Problem: Lung cancer, Elevated troponin, Elevated brain natriuretic peptide (BNP) level, Multifocal pneumonia, Cavitary lesion of lung Forms Stand Alone Forms: [facility] Prescriptions Prescriptions: No Action fluconazole 200 mg tablet 200 mg PO DAILY Qty: 14 RF: 0 multivitamin [Daily Multi-Vitamin] tablet 1 tab PO DAILY RF: 0 triamcinolone acetonide [Nasacort] 55 mcg aerosol,spray 2 sprays INTNAS DAILY RF: 0 sulfamethoxazole-trimethoprim 800-160 mg tablet 1 tab PO QPM RF: 0 simvastatin 20 mg tablet 20 mg PO HS RF: 0 prednisone 10 mg tablet 30 mg PO DAILY RF: 0 lorazepam 0.5 mg tablet 0.5 mg PO AMPM RF: 0 glipizide 2.5 mg Tablet Extended Release 24hr PO DAILY RF: 0 simvastatin 20 mg Tablet 20 mg PO HS RF: 0 aspirin 81 mg Tablet,Chewable 81 mg PO HS RF: 0 levothyroxine 100 mcg Capsule 100 mcg PO DAILY RF: 0 ipratropium-albuterol 0.5 mg-3 mg(2.5 mg base)/3 mL Solution For Nebulization 3 ml INHALATION TID RF: 0 The scribe's documentation has been prepared under my direction and personally reviewed by me in its entirety. I confirm that the note above accurately reflects all work, treatment, procedures, and medical decision making performed by me.
--- NOTE | 2018-12-27 23:52 | History & Physical Report ---
Date of Service December 27, 2018 Assessment & Plan (1) Acute on chronic respiratory failure with hypoxemia: Multifactorial : Lung abscess, HCAP, postobstructive pneumonia hx NSCLC (Possible sepsis in an immunocompromised patient, hx ILD/UIP on chronic steroid Rx) Pulmonary congestion with markedly elevated BNP, new onset CHF Troponin elevation secondary to illness hypertension, stable hyperlipidemia on statin Rx DM2 on oral meds, recent hemoglobin A1c of 9.9, November 2018 Chronic anemia, hemoglobin at baseline past tobacco abuse PCU Supplemental O2 CS, Vanco, Zosyn Stop IV fluid, diuretic Rx TTE RE possible CHF Basal insulin, ISS BG goal, 140-180 DVT prophylaxis. Lovenox subcu Full code as per patient . Transfer to [facility] once bed available. Patient kindly accepted for transfer by Dr. Barnett. Patient's family requesting updates from providers. Mrs. Naida Patino (), contact numbers [phone] 08/23 [phone] Ms. Horacio Manzo (family friend), contact #[phone]. Total critical care time was 50 minutes. History of Present Illness Chief Complaint: Shortness of breath Primary Care Provider: Dr. Shaye Bernal History obtained from patient, family, and records. Limited history from patient secondary to episodic disorientation. 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 Recent confinement [facility] December 01-2018 for pneumomediastinum, apical pneumothorax. No bronchoscopy done during confinement. Cavitating left upper lobe lung nodule suspicious for metastatic focus from right-sided tumor as per records. Bactrim started for P SUMIT prophylaxis in light of chronic steroid Rx. Chronic prednisone Rx taper down to 30 mg daily currently. Patient discharged on home O2. Consideration for systemic chemotherapy as per outpatient [facility] Oncology note 2 weeks ago. Today patient noted to have worsening shortness of breath, respiratory distress and tachypnea. Cough symptoms unable to expectorate. Needing more oxygen as per family. Patient more lethargic and confused. No witnessed aspiration, no fever, no chills. At the ER, patient received IVF, Vancomycin, Zosyn for sepsis. Patient's family requested transfer to [facility] for further evaluation by patient specialists. Patient accepted for transfer by [facility] hospitalist service. [facility] transfer currently precluded by bed unavailability. 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 Allergies Allergy/AdvReac Type Severity Reaction Status Date / Time No Known Allergies Allergy Verified 12/27/18 20:09 Home Medications Home Medications Medication Instructions Recorded Confirmed Type aspirin 81 mg PO HS 09/22/18 12/27/18 History levothyroxine 100 mcg PO DAILY 09/22/18 12/27/18 History simvastatin 20 mg PO HS 09/22/18 12/27/18 History ipratropium-albuterol 3 ml INHALATION TID 09/26/18 12/27/18 History multivitamin tablet 1 tab PO DAILY 11/22/18 12/27/18 History triamcinolone acetonide 55 mcg 2 sprays INTNAS DAILY 11/22/18 12/27/18 History nasal spray aerosol fluconazole 200 mg tablet 200 mg PO DAILY #14 tab 11/23/18 12/27/18 Rx glipizide 0 mg PO DAILY 12/27/18 12/27/18 History lorazepam 0.5 mg PO AMPM 12/27/18 12/27/18 History prednisone 30 mg PO DAILY 12/27/18 12/27/18 History simvastatin 20 mg PO HS 12/27/18 12/27/18 History sulfamethoxazole-trimethoprim 1 tab PO QPM 12/27/18 12/27/18 History Past Med/Surg History Medical History Lung cancer Allergic rhinitis Shortness of breath Bilateral pneumonia Hypothyroidism (Chronic) HLD (hyperlipidemia) (Chronic) Pulmonary fibrosis (Acute) Surgical History S/P bronchoscopy (Resolved) H/O arthroscopic knee surgery (Chronic) right knee History of bilateral cataract extraction (Chronic) History of carpal tunnel release of both wrists (Chronic) History of tonsillectomy (Chronic) Family History Other Heart disease Stroke Social History Preferred Language: Bolivian Communication Ability: Effective Configuration Specialist Required: No Beliefs That Will Affect Care: None Current Living Situation: Spouse Feels Safe at Home: Yes Safety Concerns: Feels Safe At This Time Smoking Status: Former smoker Tobacco Type: cigarettes ; Cigarettes Per Day: 20 ; Do You Dip or Chew Tobacco: No ; Second Hand Exposure: No ; Tobacco Cessation Education Requested by Patient: No Hx Alcohol Use: Yes Alcohol type: beer and hard liquor Hx Substance Use: No Review of Systems Review of Systems: Could not be reliably obtained Physical Exam Physical Exam: GENERAL: uncomfortable, disoriented, minimal respiratory distress SKIN: Pallor, warm HEENT: Partial alopecia, pale palpebral conjunctivae, no ptosis, dry buccal mucosa, nasal cannula in place NECK : Supple, no tenderness CHEST : Bilateral rhonchi, expiratory wheezes, no tenderness HEART : Tachycardic, no obvious murmurs ABDOMEN: Some distention, nontender EXTREMITIES : Minimal LE swelling, no LE tenderness, no other conspicuous deformities noted NEUROLOGIC : Disoriented, slightly hard of hearing , no facial asymmetry, no other gross focality Results & Data Vital Signs (Past 12 Hours) Vital Signs Temp Pulse Pulse Resp BP BP Pulse Ox 12/27/18 21:32 99 H 20 111/80 99 12/27/18 19:47 119 H 30 H 92 12/27/18 19:44 95 12/27/18 18:53 93 12/27/18 18:35 36.4 C L 123 H 35 H 116/90 94 Laboratory Results Laboratory Results WBC 14.68 K/uL (4.8-10.8) H 12/27/18 19:18 RBC 3.49 M/uL (4.7-6.1) L 12/27/18 19:18 Hgb 12.5 g/dL (14.0-18.0) L 12/27/18 19:18 POC Hgb 11.9 g/dl (14.0-18.0) L 12/27/18 19:36 Hct 35.2 % (42-52) L 12/27/18 19:18 POC Hct 35 % (42-52) L 12/27/18 19:36 MCV 100.9 fL (80-100) H 12/27/18 19:18 MCH 35.8 pg (25-34) H 12/27/18 19:18 MCHC 35.5 g/dL (32-36) 12/27/18 19:18 RDW Std Deviation 53.3 fL (36.4-46.3) H 12/27/18 19:18 RDW Coeff of Adriana 14.5 % (11.5-14.5) 12/27/18 19:18 Plt Count 297 K/uL (130-400) 12/27/18 19:18 MPV 9.6 fL (7.4-10.4) 12/27/18 19:18 Immature Gran % (Auto) 0.7 % 12/27/18 19:18 Neut % (Auto) 94.9 % 12/27/18 19:18 Lymph % (Auto) 2.6 % 12/27/18 19:18 [place] % (Auto) 1.6 % 12/27/18 19:18 Eos % (Auto) 0.0 % 12/27/18 19:18 Baso % (Auto) 0.2 % 12/27/18 19:18 Immature Gran # (Auto) 0.11 K/uL (0.00-0.02) H 12/27/18 19:18 Neut # (Auto) 13.93 K/uL (1.4-6.5) H 12/27/18 19:18 Lymph # (Auto) 0.38 K/uL (1.2-3.4) L 12/27/18 19:18 [place] # (Auto) 0.23 K/uL (0.11-0.59) 12/27/18 19:18 Eos # (Auto) 0.00 K/uL (0-0.5) 12/27/18 19:18 Baso # (Auto) 0.03 K/uL (0-0.2) 12/27/18 19:18 Rouleaux 1+ 12/27/18 19:18 PT 11.6 Seconds (9.0-12.0) 12/27/18 19:18 INR 1.1 (0.9-1.1) 12/27/18 19:18 VBG pH 7.51 (7.36-7.41) H 12/27/18 19:29 VBG pCO2 33 mmHg (38-50) L 12/27/18 19:29 VBG pO2 71 mmHg 12/27/18 19:29 VBG HCO3 26 mmol/L 12/27/18 19:29 VBG O2 Saturation 94.4 % 12/27/18 19:29 VBG Base Excess 3.0 mEq/L 12/27/18 19:29 Barometric Pressure 734.5 mm/Hg 12/27/18 19:29 POC Sodium 132 mEq/L (135-144) L 12/27/18 19:36 Sodium 133 mmol/L (136-145) L 12/27/18 19:18 POC Potassium 4.0 mEq/L (3.3-5.0) 12/27/18 19:36 Potassium 4.0 mmol/L (3.5-5.1) 12/27/18 19:18 POC Chloride 95 mEq/L (101-112) L 12/27/18 19:36 Chloride 96 mmol/L (98-107) L 12/27/18 19:18 Carbon Dioxide 28 mmol/L (21-32) 12/27/18 19:18 POC Total CO2 26 mEq/l (24-31) 12/27/18 19:36 Anion Gap 9.0 (3-11) 12/27/18 19:18 POC Anion Gap 16.0 mmol/L (16-25) 12/27/18 19:36 POC BUN 20 mg/dl (7-18) H 12/27/18 19:36 BUN 20 mg/dl (7-18) H 12/27/18 19:18 Creatinine 0.66 mg/dl (0.6-1.4) 12/27/18 19:18 POC Creatinine 0.6 mg/dl (0.6-1.3) 12/27/18 19:36 Est Cr Clr Drug Dosing 102.7 ml/min 12/27/18 19:18 Est GFR ( Amer) 112.7 12/27/18 19:18 Est GFR (Non-Af Amer) 97.3 12/27/18 19:18 BUN/Creatinine Ratio 30.4 (10-20) H 12/27/18 19:18 Glucose 140 mg/dl (70-99) H 12/27/18 19:18 POC Glucose (other) 149 mg/dl (70-99) H 12/27/18 19:36 Lactate 1.8 mmol/L (0.4-2.0) 12/27/18 19:29 Calcium 9.0 mg/dl (8.5-10.1) 12/27/18 19:18 POC Ioniz Calcium Kristyn 1.14 mmol/l (1.12-1.32) 12/27/18 19:36 Phosphorus 3.2 mg/dl (2.5-4.9) 12/27/18 19:18 Magnesium 2.3 mg/dl (1.8-2.4) 12/27/18 19:18 Total Bilirubin 0.7 mg/dl (0.2-1) 12/27/18 19:18 AST 125 U/L (15-37) H 12/27/18 19:18 ALT 288 U/L (12-78) H 12/27/18 19:18 Alkaline Phosphatase 270 U/L (45-117) H 12/27/18 19:18 Troponin I 0.314 ng/ml (0-0.045) H* 12/27/18 19:18 NT-Pro-B Natriuret Pep 79141 pg/ml (0-900) H 12/27/18 19:18 Total Protein 7.1 gm/dl (6.4-8.2) 12/27/18 19:18 Albumin 2.3 gm/dl (3.4-5.0) L 12/27/18 19:18 Globulin 4.8 gm/dl (2.5-4.0) H 12/27/18 19:18 Albumin/Globulin Ratio 0.5 (0.9-2) L 12/27/18 19:18 Lipase 61 U/L (73-393) L 12/27/18 19:18 TSH 0.349 uIu/ml (0.300-4.500) 12/27/18 19:[address] chest: 1. Interval development of a nearly 5 cm cavitary lesion with extensive surrounding groundglass infiltrate in the left upper lobe. This is highly concerning for a lung abscess given the short-term interval. 2. Extensive interval worsening of multifocal peripheral and basilar predom inant consolidation. This could represent superimposed infection or aspiration on a background of chronic fibrotic lung disease. 3. Right pleural effusion increased from prior. 4. Interval development of mediastinal lymphadenopathy, likely reactive. 5. No convincing evidence of a pulmonary embolus. EKG as per my interpretation: rate 120, sinus tachycardia, LAD, LAFB, LAE, LVH, T wave inversion anteroseptal leads
[2018-12-28] MEDS ORDERED: FUROSEMIDE 20 MG in SYRINGE 0 ML IV ONE (00:17)
[2018-12-28 01:05] LABS: Appearance Urine Clear (Clear); Bilirubin Urine Negative (Negative); Blood Urine Negative (Negative); Color Urine Yellow; Glucose Urine UA Negative (Negative); Ketones Urine Negative (Negative); Leukocyte Esterase Urine Negative (Negative); Nitrite Urine Negative (Negative); Protein Urine Negative (Negative); Specific Gravity Urine 1.017 (1.000-1.030); Urobilinogen Urine Negative (Negative)
[2018-12-28] MEDS ORDERED: XOPENEX/ATROVENT 1.25mg/0.5MG NEB COMBO NEB SCH (01:35)
[2018-12-28] MEDS ORDERED: PROMETHAZINE HCL 12.5 MG in SODIUM CHLORIDE 0.9% 50 ML IV PRN (01:35)
[2018-12-28] MEDS ORDERED: GLUCOSE 10 TABS/TUBE PO PRN (01:35)
[2018-12-28] MEDS ORDERED: ACETAMINOPHEN 325 MG TAB PO PRN (01:35)
[2018-12-28] MEDS ORDERED: DEXTROSE 50% 50 ML SYRINGE IV PRN (01:35)
[2018-12-28] MEDS ORDERED: GLUCAGON FOR INJ 1 MG VIAL SQ PRN (01:35)
[2018-12-28] MEDS ORDERED: CARBOHYDRATES FOR HYPOGLYCEMIA PO PRN (01:35)
[2018-12-28] MEDS ORDERED: INSULIN GLARGINE SOLOSTAR 100 UNITS/ML 3 ML PEN SQ STA (01:35)
[2018-12-28] MEDS ORDERED: GLUCOSE 40% GEL 15 GM TUBE PO PRN (01:35)
[2018-12-28] MEDS ORDERED: FUROSEMIDE 40 MG/4 ML VIAL IV ONE (01:39)
[2018-12-28] MEDS: INSULIN ASPART 100 UNITS/ML 3 ML PEN SC SCH ×3 (04:04→12:31)
[2018-12-28] MEDS ORDERED: methylPREDNISolone 30 MG in SYRINGE 0 ML IV SCH ×2 (06:00→09:00)
[2018-12-28] MEDS ORDERED: FUROSEMIDE 40 MG in SYRINGE 0 ML IV STA (06:09)
[2018-12-28] MEDS: PIPERACILLIN/TAZOBACTAM 4.5 GM in DEXTROSE 5% 100 ML IV SCH ×2 (06:27→15:04)
[2018-12-28] MEDS: VANCOMYCIN HCL 1,000 MG in SODIUM CHLORIDE 0.9% 250 ML IV SCH ×2 (06:27→17:30)
[2018-12-28] MEDS ORDERED: LEVOTHYROXINE SODIUM 100 MCG TABLET PO SCH (06:30)
[2018-12-28] MEDS: IPRATROPIUM BROMIDE NEB SOLN 0.02% 2.5 ML VIAL INH SCH ×3 (06:59→19:16)
[2018-12-28] MEDS: LEVALBUTEROL 1.25MG/0.5ML NEB INH SCH ×3 (06:59→19:16)
[2018-12-28 07:43] LABS: Basophils # (auto) 0.02 K/uL (0-0.2); Basophils % (auto) 0.1 %; Hematocrit (blood only) 36.8 % (42-52); Hemoglobin 12.8 g/dL (14.0-18.0); Immature Granulocytes # (auto) 0.06 K/uL (0.00-0.02); Immature Granulocytes % (auto) 0.4 %; Lymphocytes # (auto) 0.27 K/uL (1.2-3.4); Lymphocytes % (auto) 1.6 %; Mean Corpuscular Hemoglobin 35.2 pg (25-34); Mean Corpuscular Hgb Conc 34.8 g/dL (32-36); Mean Corpuscular Volume 101.1 fL (80-100); Mean Platelet Volume 9.8 fL (7.4-10.4); Monocytes # (auto) 0.27 K/uL (0.11-0.59); Monocytes % (auto) 1.6 %; Neutrophils # (auto) 15.83 K/uL (1.4-6.5); Neutrophils % (auto) 96.3 %; Platelet Count 284 K/uL (130-400); RDW Coefficient of Variation 14.5 % (11.5-14.5); RDW Standard Deviation 53.5 fL (36.4-46.3); Red Blood Count 3.64 M/uL (4.7-6.1); White Blood Count 16.45 K/uL (4.8-10.8)
[2018-12-28 08:00] LABS: Partial Thromboplastin Ratio 0.9; Partial Thromboplastin Time 23.7 Seconds (21.0-31.0)
[2018-12-28] MEDS ORDERED: FUROSEMIDE 40 MG in SYRINGE 0 ML IV ONE (08:00)
[2018-12-28 08:18] LABS: BUN Creatinine Ratio 26.7 (10-20); Calcium 8.8 mg/dl (8.5-10.1); Creatinine Clr Calc Pharmacy 104.2 ml/min; Est GFR (African American) 113.4; Est GFR (Non-African American) 97.9; Potassium 3.4 mmol/L (3.5-5.1)
[2018-12-28 08:23] LABS: Troponin I 0.516 ng/ml (0-0.045)
--- NOTE | 2018-12-28 08:48 | Hospitalist Progress Note ---
Date of Service December 28, 2018 Assessment & Plan (1) Acute on chronic respiratory failure with hypoxemia: Acute on chronic hypoxic respiratory failure Secondary to bilateral pneumonia, possible healthcare associate pneumonia Possible left upper lobe lung abscess Right pleural effusion In the setting of non-small cell lung cancer Patient remained from nasal cannula, now on 4 L of oxygen by nasal cannula Blood cultures: Pending Continue Vanco, Zosyn Solu-Medrol IV every 8 hours Give albuterol and ipratropium nebs scheduled Patient already given a total of Lasix IV 60 mg BNP elevated, echocardiogram pending With good diuresis Pulmonary service consulted Patient awaiting bed availability [facility] for transfer Troponin elevation secondary to illness 0.3, 0.5 Nonspecific T wave depressions on anterior leads patient EKG on admission Repeat EKG today Denies having any cardiac symptoms Chronic prednisone use secondary to history of interstitial lung disease Currently on Solu-Medrol q8h hypertension, stable hyperlipidemia on statin Rx DM2 on oral meds, recent hemoglobin A1c of 9.9, November 2018: Insulin sliding scale, anticipate hyperglycemia secondary to Medrol, monitor closely Chronic anemia, hemoglobin at baseline past tobacco abuse Awaiting to be transferred to [facility] in [place] Plan of care discussed with patient and also his on the phone All questions answered They are understanding, agreeable, comfortable plan of care Subjective Follow-up for acute on chronic hypoxic respiratory failure, pneumonia Seen resting in bed, comfortable, sleeping, on 4 L of nasal cannula Easily awakened, oriented x3 States he feels better compared to yesterday Denies shortness of breath, denies coughing or sputum production Denies chest pain, palpitations, dizziness, abdominal pain, nausea vomiting Denies any other symptoms Review of Systems Review of Systems: All systems reviewed & are unremarkable except as noted in HPI & below Physical Exam Physical Exam: General- oriented x 3, not in distress, speaks in sentences with no effort or accessory muscle use Head- atraumatic Eyes- PERRL, EOMI, anicteric ENT- oropharynx clear Neck- supple, no JVD, no adenopathy, no thyromegaly; carotids +2/2, no bruits appreciated Lungs-positive decreased breath sounds in the right base, positive crackles bilaterally No wheezing Heart- normal rate, regular rhythm; no murmur, no gallop, no rub appreciated Abdomen- normal bowel sounds, nondistended, soft, nontender, no masses or hepatosplenomegaly Extremities- no pretibial edema, no calf tenderness; peripheral pulses intact Neuro- alert, oriented x 3; CN 2-12 grossly intact; motor 5/5 bilaterally;sensation 100% on all extremities; no other gross focal neurologic deficits Skin- warm & dry Results & Data Vital Signs (Past 12 Hours) Vital Signs Temp Pulse Pulse Pulse Resp BP BP 12/28/18 07:07 35.9 C L 82 24 122/83 12/28/18 07:00 100 H 22 12/28/18 04:07 36.4 C L 118 H 28 H 129/88 12/28/18 03:54 36.5 C 81 24 108/77 12/28/18 00:30 101 H 28 H 93/80 L 12/28/18 00:00 111 H 25 H 152/99 H 12/27/18 23:30 36.7 C 122 H 32 H 132/101 H 12/27/18 23:00 100 H 27 H 12/27/18 21:32 99 H 20 111/80 Pulse Ox 12/28/18 07:07 96 12/28/18 07:00 92 12/28/18 04:07 91 12/28/18 03:54 94 12/28/18 00:30 92 12/28/18 00:00 92 12/27/18 23:30 94 12/27/18 23:00 94 12/27/18 21:32 99 Laboratory Results Laboratory Results - last 24 hr 12/27/18 12/27/18 12/27/18 19:18 19:18 19:18 WBC 14.68 H RBC 3.49 L Hgb 12.5 L POC Hgb Hct 35.2 L POC Hct MCV 100.9 H MCH 35.8 H MCHC 35.5 RDW Std Deviation 53.3 H RDW Coeff of Adriana 14.5 Plt Count 297 MPV 9.6 Immature Gran % (Auto) 0.7 Neut % (Auto) 94.9 Lymph % (Auto) 2.6 [place] % (Auto) 1.6 Eos % (Auto) 0.0 Baso % (Auto) 0.2 Immature Gran # (Auto) 0.11 H Neut # (Auto) 13.93 H Lymph # (Auto) 0.38 L [place] # (Auto) 0.23 Eos # (Auto) 0.00 Baso # (Auto) 0.03 Rouleaux 1+ PT 11.6 INR 1.1 APTT PTT Ratio VBG pH VBG pCO2 VBG pO2 VBG HCO3 VBG O2 Saturation VBG Base Excess Barometric Pressure POC Sodium Sodium 133 L POC Potassium Potassium 4.0 POC Chloride Chloride 96 L Carbon Dioxide 28 POC Total CO2 Anion Gap 9.0 POC Anion Gap POC BUN BUN 20 H Creatinine 0.66 POC Creatinine Est Cr Clr Drug Dosing 102.7 Est GFR ( Amer) 112.7 Est GFR (Non-Af Amer) 97.3 BUN/Creatinine Ratio 30.4 H Glucose 140 H POC Glucose POC Glucose (other) Lactate Calcium 9.0 POC Ioniz Calcium Kristyn Phosphorus 3.2 Magnesium 2.3 Total Bilirubin 0.7 AST 125 H ALT 288 H Alkaline Phosphatase 270 H Troponin I 0.314 H* NT-Pro-B Natriuret Pep 09117 H Total Protein 7.1 Albumin 2.3 L Globulin 4.8 H Albumin/Globulin Ratio 0.5 L Lipase 61 L TSH 0.349 Urine Color Urine Appearance Urine pH Ur Specific [place] Urine Protein Urine Glucose (UA) Urine Ketones Urine Blood Urine Nitrite Urine Bilirubin Urine Urobilinogen Ur Leukocyte Esterase 12/27/18 12/27/18 12/27/18 19:29 19:29 19:36 WBC RBC Hgb POC Hgb 11.9 L Hct POC Hct 35 L MCV MCH MCHC RDW Std Deviation RDW Coeff of Adriana Plt Count MPV Immature Gran % (Auto) Neut % (Auto) Lymph % (Auto) [place] % (Auto) Eos % (Auto) Baso % (Auto) Immature Gran # (Auto) Neut # (Auto) Lymph # (Auto) [place] # (Auto) Eos # (Auto) Baso # (Auto) Rouleaux PT INR APTT PTT Ratio VBG pH 7.51 H VBG pCO2 33 L VBG pO2 71 VBG HCO3 26 VBG O2 Saturation 94.4 VBG Base Excess 3.0 Barometric Pressure 734.5 POC Sodium 132 L Sodium POC Potassium 4.0 Potassium POC Chloride 95 L Chloride Carbon Dioxide POC Total CO2 26 Anion Gap POC Anion Gap 16.0 POC BUN 20 H BUN Creatinine POC Creatinine 0.6 Est Cr Clr Drug Dosing Est GFR ( Amer) Est GFR (Non-Af Amer) BUN/Creatinine Ratio Glucose POC Glucose POC Glucose (other) 149 H Lactate 1.8 Calcium POC Ioniz Calcium Kristyn 1.14 Phosphorus Magnesium Total Bilirubin AST ALT Alkaline Phosphatase Troponin I NT-Pro-B Natriuret Pep Total Protein Albumin Globulin Albumin/Globulin Ratio Lipase TSH Urine Color Urine Appearance Urine pH Ur Specific [place] Urine Protein Urine Glucose (UA) Urine Ketones Urine Blood Urine Nitrite Urine Bilirubin Urine Urobilinogen Ur Leukocyte Esterase 12/28/18 12/28/18 12/28/18 00:42 03:56 06:14 WBC RBC Hgb POC Hgb Hct POC Hct MCV MCH MCHC RDW Std Deviation RDW Coeff of Adriana Plt Count MPV Immature Gran % (Auto) Neut % (Auto) Lymph % (Auto) [place] % (Auto) Eos % (Auto) Baso % (Auto) Immature Gran # (Auto) Neut # (Auto) Lymph # (Auto) [place] # (Auto) Eos # (Auto) Baso # (Auto) Rouleaux PT INR APTT PTT Ratio VBG pH VBG pCO2 VBG pO2 VBG HCO3 VBG O2 Saturation VBG Base Excess Barometric Pressure POC Sodium Sodium POC Potassium Potassium POC Chloride Chloride Carbon Dioxide POC Total CO2 Anion Gap POC Anion Gap POC BUN BUN Creatinine POC Creatinine Est Cr Clr Drug Dosing Est GFR ( Amer) Est GFR (Non-Af Amer) BUN/Creatinine Ratio Glucose POC Glucose 154 H 164 H POC Glucose (other) Lactate Calcium POC Ioniz Calcium Kristyn Phosphorus Magnesium Total Bilirubin AST ALT Alkaline Phosphatase Troponin I NT-Pro-B Natriuret Pep Total Protein Albumin Globulin Albumin/Globulin Ratio Lipase TSH Urine Color Yellow Urine Appearance Clear Urine pH 6.0 Ur Specific [place] 1.017 Urine Protein Negative Urine Glucose (UA) Negative Urine Ketones Negative Urine Blood Negative Urine Nitrite Negative Urine Bilirubin Negative Urine Urobilinogen Negative Ur Leukocyte Esterase Negative 12/28/18 12/28/18 12/28/18 07:29 07:29 07:29 WBC 16.45 H RBC 3.64 L Hgb 12.8 L POC Hgb Hct 36.8 L POC Hct MCV 101.1 H MCH 35.2 H MCHC 34.8 RDW Std Deviation 53.5 H RDW Coeff of Adriana 14.5 Plt Count 284 MPV 9.8 Immature Gran % (Auto) 0.4 Neut % (Auto) 96.3 Lymph % (Auto) 1.6 [place] % (Auto) 1.6 Eos % (Auto) 0.0 Baso % (Auto) 0.1 Immature Gran # (Auto) 0.06 H Neut # (Auto) 15.83 H Lymph # (Auto) 0.27 L [place] # (Auto) 0.27 Eos # (Auto) 0.00 Baso # (Auto) 0.02 Rouleaux PT INR APTT 23.7 PTT Ratio 0.9 VBG pH VBG pCO2 VBG pO2 VBG HCO3 VBG O2 Saturation VBG Base Excess Barometric Pressure POC Sodium Sodium 136 POC Potassium Potassium 3.4 L POC Chloride Chloride 95 L Carbon Dioxide 31 POC Total CO2 Anion Gap 10.0 POC Anion Gap POC BUN BUN 17 Creatinine 0.65 POC Creatinine Est Cr Clr Drug Dosing 104.2 Est GFR ( Amer) 113.4 Est GFR (Non-Af Amer) 97.9 BUN/Creatinine Ratio 26.7 H Glucose 165 H POC Glucose POC Glucose (other) Lactate Calcium 8.8 POC Ioniz Calcium Kristyn Phosphorus Magnesium Total Bilirubin AST ALT Alkaline Phosphatase Troponin I 0.516 H* NT-Pro-B Natriuret Pep Total Protein Albumin Globulin Albumin/Globulin Ratio Lipase TSH Urine Color Urine Appearance Urine pH Ur Specific [place] Urine Protein Urine Glucose (UA) Urine Ketones Urine Blood Urine Nitrite Urine Bilirubin Urine Urobilinogen Ur Leukocyte Esterase
[2018-12-28] MEDS ORDERED: ENOXAPARIN INJ 30 MG/0.3 ML SYR SQ SCH (09:00)
[2018-12-28] MEDS ORDERED: TRIAMCINOLONE ACET NASAL SPRAY 10.8ML BTL SCH (09:00)
[2018-12-28] MEDS ORDERED: INSULIN GLARGINE SOLOSTAR 100 UNITS/ML 3 ML PEN SQ SCH ×2 (09:00→21:00)
[2018-12-28] MEDS ORDERED: MULTIVITAMIN TAB PO SCH (09:00)
--- NOTE | 2018-12-28 09:59 | Pharmacy Report ---
Pharmacy Abx Dose Short Note - Date of Service December 28, 2018 - Assessment & Plan Assessment 73 year old M presented with worening shortness of breath with a Non small cell lung cancer, currently on home O2, ILD/UIP on chronic steroids, HTN, HLD, DM2, chronic anemia, hypothyroidism. Patient was given a 20 mg/kg load of vancomycin in the emergency department and continued on 1000 mg q10H. Patient was recently hospitalized at [facility]. WBC 16.4, afebrile, creat 0.65. Patient accepted as tr ansfer to [facility], awaiting bed Day # 1 of antimicrobial therapy. Plan Vancomycin * Continue dose of 1000 mg IV every 10 hours * Population PK: Age Adjusted CrCl: 84 ml/min, SCr 0.65, ke 0.64566, T1/2 ~9 HOURS * Goal trough level 15-20 mcg/mL * Trough ordered for 12/29 @1130 in event patient is still at our facility. Pharmacy will continue to follow and will adjust dose/frequency as necessary. Thank you.
--- NOTE | 2018-12-28 10:26 | Pulmonary Consultation ---
Date of Consultation December 28, 2018 Assessment & Plan (1) Acute on chronic respiratory failure with hypoxemia: The patient's overall status is poor. He has significant hypoxia with shunts. On higher doses of oxygen he is adequately oxygenated at present. There is a large cavity that has occurred quickly. The rapidity with which it has occurred would suggest it is infectious. He certainly has an atypical malignancy itself however. Thus cannot entirely exclude a metastatic cavity. Agree with trying to treat anything that might be reversible. The cause of the elevated liver functions is not known. The patient is currently on methylprednisolone, vancomycin, and Zosyn. I agree with the above. I also agree with the neb treatments with levalbuterol he is receiving. It is presumed that he will get transferred fairly readily. The patient is currently a full code. It would appear that his prognosis is likely poor. (2) Cavitary lesion of lung: (3) Lung cancer: (4) Usual interstitial pneumonitis: History of Present Illness Attending Physician: Charlie Ruiz MD History of Present Illness Pulmonary consultation is requested regarding shortness of breath and hypoxia. The patient is a 73-year-old male who had no history of lung problems prior to 2018. In April and May he had symptoms consistent with an upper respiratory tract infection. He had a residual cough that did not resolve. It was dry. In the springtime a chest x-ray showed evidence of an infiltrate predominantly in the right lung. A CAT scan was done and showed extensive infiltrative disease right greater than left. The patient subsequently had bronchoscopy done by Dr. Viera. This was on 09/26/2018. There was no obvious reason for the infiltrates. Subsequently he underwent a VATS procedure on the same day by Dr. Costa. He was discharged 2 days later. 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 The pathology specimens were evaluated but it at [facility] and [facility]. The patient was then started on prednisone therapy. The patient subsequently was found to have a right pneumothorax. He underwent an aspiration of the pneumothorax on October 16 as an outpatient. I in mid November the patient began to notice swelling under the skin in the upper chest and neck area. He had a sudden onset of subcutaneous emphysema. He saw Dr. Costa and a CAT scan was arranged. The CAT scan showed extensive subcutaneous emphysema and extensive pneumomediastinum with a small right apical pneumothorax. There were fairly diffuse parenchymal infiltrates and fibrotic changes. The patient subsequently was transferred to [facility]. I am not certain how long he was there but reportedly they did careful follow-up without any invasive procedures. The pneumomediastinum and subcu emphysema improved. The patient was seen by outpatient medical oncology and they were considering their options. The patient was brought to the emergency room yesterday. He reportedly had confusion, weakness, and shortness of breath. The patient himself apparently was not aware that he was confused. He was then admitted last evening. Reportedly he is to be transferred to [facility] today but a pulmonary consultation was requested for recommendations prior to that transfer. The patient is very weak. He is sleepy. He is still short of breath. Shortly before I went to see the patient the nurses had gone in because he was complaining of shortness of breath and found his oxygen saturations to be 85% on 4 L. They increased him to 6 L with an improvement up to 90%. The patient acknowledged that he is been weak. He states he uses a walker and cannot go without assistance. This would just be even in the house going from one room to a. He does not have any pain. He has some cough. It is dry with scant sputum. He has noticed a decrease in his appetite. Energy level is decreased. He has noticed some foot swelling. Other complaints include constipation. He has not coughed up any blood. Allergies Allergy/AdvReac Type Severity Reaction Status Date / Time No Known Allergies Allergy Verified 12/27/18 20:09 Home Medications Home Medications Medication Instructions Recorded Confirmed Type aspirin 81 mg PO HS 09/22/18 12/27/18 History levothyroxine 100 mcg PO DAILY 09/22/18 12/27/18 History simvastatin 20 mg PO HS 09/22/18 12/27/18 History ipratropium-albuterol 3 ml INHALATION TID 09/26/18 12/27/18 History multivitamin tablet 1 tab PO DAILY 11/22/18 12/27/18 History triamcinolone acetonide 55 mcg 2 sprays INTNAS DAILY 11/22/18 12/27/18 History nasal spray aerosol fluconazole 200 mg tablet 200 mg PO DAILY #14 tab 11/23/18 12/27/18 Rx glipizide 0 mg PO DAILY 12/27/18 12/27/18 History lorazepam 0.5 mg PO AMPM 12/27/18 12/27/18 History prednisone 30 mg PO DAILY 12/27/18 12/27/18 History simvastatin 20 mg PO HS 12/27/18 12/27/18 History sulfamethoxazole-trimethoprim 1 tab PO QPM 12/27/18 12/27/18 History Patient History Medical History Lung cancer Allergic rhinitis Shortness of breath Bilateral pneumonia Hypothyroidism (Chronic) HLD (hyperlipidemia) (Chronic) Pulmonary fibrosis (Acute) Surgical History S/P bronchoscopy (Resolved) H/O arthroscopic knee surgery (Chronic) right knee History of bilateral cataract extraction (Chronic) History of carpal tunnel release of both wrists (Chronic) History of tonsillectomy (Chronic) Family History Other Heart disease Stroke Social History Preferred Language: Moldovan Communication Ability: Effective City Sanitarian Required: No Beliefs That Will Affect Care: None Current Living Situation: Spouse Feels Safe at Home: Yes Safety Concerns: Feels Safe At This Time Smoking Status: Former smoker Tobacco Type: cigarettes ; Cigarettes Per Day: 20 ; Do You Dip or Chew Tobacco: No ; Second Hand Exposure: No ; Tobacco Cessation Education Requested by Patient: No Hx Alcohol Use: Yes Alcohol type: beer and hard liquor Hx Substance Use: No Review of Systems Review of Systems: Negative except as noted in history of present illness. It should be noted that the patient is somewhat lethargic and not a good historian. Physical Exam Physical Exam: The patient is a 73-year-old male who looks appropriate for his age. He does appear weak. Temperature is 35.9. There has been no fevers since admission. Weight is 72.6 kg with a BMI of 23.6. The patient was intermittently falling asleep during the exam. He did state he had not slept hardly at all last night. Pupils were reactive. Implants were noted. Nares clear. Mouth exam showed dry membranes. His neck bilaterally appears puffy. This had been noted previously as well. No definite masses noted. There is no subcutaneous air. Cardiac rate 82/min. Occasional extrasystole heard. Blood pressure 122/83. Auscultation of the lung cortez on the left reveals very prominent rales throughout. There are rales on the right but less than on the left. Respiratory rate 24 breaths/min. He appears mildly short of breath. Abdomen was soft. Bowel sounds are present. There was no focal tenderness to palpation. No definite mass palpable. Extremities showed no cyanosis clubbing or edema. The patient reportedly had been edematous but he clearly is not now. Results & Data Vital Signs (Past 12 Hours) Vital Signs Temp Pulse Pulse Pulse Resp BP BP 12/28/18 07:07 35.9 C L 82 24 122/83 12/28/18 07:00 100 H 22 12/28/18 04:07 36.4 C L 118 H 28 H 129/88 12/28/18 03:54 36.5 C 81 24 108/77 12/28/18 00:30 101 H 28 H 93/80 L 12/28/18 00:00 111 H 25 H 152/99 H 12/27/18 23:30 36.7 C 122 H 32 H 132/101 H 12/27/18 23:00 100 H 27 H Pulse Ox 12/28/18 07:07 96 12/28/18 07:00 92 12/28/18 04:07 91 12/28/18 03:54 94 12/28/18 00:30 92 12/28/18 00:00 92 12/27/18 23:30 94 12/27/18 23:00 94 Laboratory Results White blood cell count today 16.45. Hemoglobin 12.8. Platelets 284,000. Venous blood gas showed pH 7.51 PCO2 33 PO2 71. Electrolytes show sodium 136 potassium 3.4 chloride 95 bicarb 31. Blood sugar 165. Troponin elevated 0.516. Liver functions are abnormal with AST 125, ALT 288, alk phos 270. Bilirubin was normal at 0.7. proBNP was 10,399. Diagnostic Findings Chest x-ray done 12/27/2018 showed a significant interval increase in bilateral peripheral and basilar infiltrates. This was compared with 12/01/2018. Pulmonary vascular prominence was suggested. CAT scan of the chest shows a significant change compared with prior CAT scan done 11/30/2018. There is now a 5 cm cavitary lesion with extensive groundglass infiltrates in the left upper lobe. Because of the rapid growth this would be more likely suspicious for a lung abscess with an inability to exclude metastatic disease. There is extensive worsening of multifocal peripheral and basilar predominant consolidation. While this could represent superimposed infection or aspiration that could also represent marked progression of the malignancy. There is a small right pleural effusion. There is some mediastinal lymphadenopathy noted which is increased. This measures up to 15 mm. PG Care Time/CCT Total # of Minutes Spent Total Time Spent with Patient: Total time spent is greater than 50% in coordination of care (as documented) at patient's floor/unit and/or counseling patient:
--- NOTE | 2018-12-28 13:47 | Discharge Summary ---
Date of Service December 28, 2018 Admission HPI Per Admitting Provider History obtained from patient, family, and records. Limited history from patient secondary to episodic disorientation. 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 Recent confinement [facility] December 01-2018 for pneumomediastinum, apical pneumothorax. No bronchoscopy done during confinement. Cavitating left upper lobe lung nodule suspicious for metastatic focus from right-sided tumor as per records. Bactrim started for P SUMIT prophylaxis in light of chronic steroid Rx. Chronic prednisone Rx taper down to 30 mg daily currently. Patient discharged on home O2. Consideration for systemic chemotherapy as per outpatient [facility] Oncology note 2 weeks ago. Today patient noted to have worsening shortness of breath, respiratory distress and tachypnea. Cough symptoms unable to expectorate. Needing more oxygen as per family. Patient more lethargic and confused. No witnessed aspiration, no fever, no chills. At the ER, patient received IVF, Vancomycin, Zosyn for sepsis. Patient's family requested transfer to [facility] for further evaluation by patient specialists. Patient accepted for [place] [facility] [place] [facility] [place] currently precluded by bed unavailability. 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 Admission Exam Per Admitting Provider GENERAL: uncomfortable, disoriented, minimal respiratory distress SKIN: Pallor, warm HEENT: Partial alopecia, pale palpebral conjunctivae, no ptosis, dry buccal mucosa, nasal cannula in place NECK : Supple, no tenderness CHEST : Bilateral rhonchi, expiratory wheezes, no tenderness HEART : Tachycardic, no obvious murmurs ABDOMEN: Some distention, nontender EXTREMITIES : Minimal LE swelling, no LE tenderness, no other conspicuous deformities noted NEUROLOGIC : Disoriented, slightly hard of hearing , no facial asymmetry, no other gross focality Principal Diagnosis ACUTE ON CHRONIC HYPOXIC RESPIRATORY FAILURE, SECONDARY TO BILATERAL PNEUMONIA, POSSIBLE LEFT LUNG ABSCESS, RIGHT PLEURAL EFFUSION Discharge Exam General- oriented x 3, not in distress, speaks in sentences with no effort or accessory muscle use Head- atraumatic Eyes- PERRL, EOMI, anicteric ENT- oropharynx clear Neck- supple, no JVD, no adenopathy, no thyromegaly; carotids +2/2, no bruits appreciated Lungs-positive decreased breath sounds in the right base, positive crackles bilaterally No wheezing Heart- normal rate, regular rhythm; no murmur, no gallop, no rub appreciated Abdomen- normal bowel sounds, nondistended, soft, nontender, no masses or hepatosplenomegaly Extremities- no pretibial edema, no calf tenderness; peripheral pulses intact Neuro- alert, oriented x 3; CN 2-12 grossly intact; motor 5/5 bilaterally;sensation 100% on all extremities; no other gross focal neurologic deficits Skin- warm & dry Discharge Data Allergies Allergy/AdvReac Type Severity Reaction Status Date / Time No Known Allergies Allergy Verified 12/27/18 20:09 Consultations 12/27/18 21:50 ED Decision to Admit Stat 12/28/18 01:35 Burn CD for patient Stat 12/28/18 07:48 Consult Pulmonology Routine Ordered Studies 12/27/18 19:45 CT angio chest PE protocol Stat CT angio chest PE protocol CLINICAL HISTORY: 73 years-old Male presenting with shortness of breath, atypical chest pain, clinical concern for pulmonary embolus. TECHNIQUE: Multidetector CT angiography of the chest was performed after administration of intravenous contrast. 3-D volumetric and/or maximum intensity projection (MIP) images were subsequently reconstructed for review. IV contrast: 116 mL of Optiray 320. One or more dose lowering techniques were used consistent with the principles of ALARA (as low as reasonably achievable), including automatic exposure control, mA or kV adjustment to individual patient size, and/or use of iterative reconstruction. COMPARISON: 11/30/[address] DOSE (mGy.cm): The estimated cumulative dose is 293.49 mGy.cm. FINDINGS: Hot Mix Operator topogram: Unremarkable. Pulmonary vasculature: The study is adequate for assessment of the pulmonary vascular tree. Suboptimal opacification of distal right lower lobe pulmonary arterial branches is most likely related to delayed opacification rather than filling defects. No convincing evidence of a filling defect within the pulmonary arteries to suggest embolus. Abnormal size of the main pulmonary artery. No flattening of the interventricular septum. No intracardiac filling defect. Reflux of contrast into the intrahepatic IVC. Remaining chest: Soft tissues: Normal thyroid and thoracic inlet. Mediastinal lymph nodes in the prevascular region have increased in prominence. An aortopulmonary window lymph node measures 15 mm in short axis. Additional paratracheal and subcarinal lymph nodes are enlarged. Right hilar lymph nodes are also suggested. Atherosclerosis of the aorta. Multichamber enlargement of the heart. Coronary artery calcification. Small right pleural effusion. Upper abdomen normal. Lungs and airways: Pneumomediastinum noted. New complete resolution of prior soft tissue emphysema. No pneumothorax. Dilated trachea and bronchi diffusely. Significant interval increase in consolidation diffusely though most pronounced in the left apex, where there is now a 4.9 cm cavitary masslike consolidation with air on prior there was a subcentimeter lesion. Extensive surrounding groundglass opacity. Redemonstration of by basilar predominant peripheral consolidation, calcification, and bronchiectasis. Increasing opacities in these regions is also noted. Musculoskeletal: Degenerative changes of the spine. IMPRESSION: 1. Interval development of a nearly 5 cm cavitary lesion with extensive surrounding groundglass infiltrate in the left upper lobe. This is highly concerning for a lung abscess given the short-term interval. 2. Extensive interval worsening of multifocal peripheral and basilar predominant consolidation. This could represent superimposed infection or aspiration on a background of chronic fibrotic lung disease. 3. Right pleural effusion increased from prior. 4. Interval development of mediastinal lymphadenopathy, likely reactive. 5. No convincing evidence of a pulmonary embolus. Hospital Course (1) Acute on chronic respiratory failure with hypoxemia: Acute on chronic hypoxic respiratory failure Secondary to bilateral pneumonia, possible healthcare associate pneumonia Possible left upper lobe lung abscess Right pleural effusion In the setting of non-small cell lung cancer Patient remained from nasal cannula, now on 4 L of oxygen by nasal cannula Blood cultures: Pending Continue Vanco, Zosyn Solu-Medrol 40mg IV every 8 hours albuterol and ipratropium nebs scheduled Patient already given a total of Lasix IV 60 mg BNP elevated, echocardiogram pending With good diuresis Pulmonary service consulted Patient awaiting bed availability [facility] for transfer Troponin elevation secondary to illness 0.3 --> 0.5 --> 0.4 Nonspecific T wave depressions on anterior leads seen on EKG on admission and on repeat recommend echo Denies having any cardiac symptoms Chronic prednisone use secondary to history of interstitial lung disease Currently on Solu-Medrol q8h hypertension, stable --> BP on the lower side, monitor hyperlipidemia on statin Rx DM2 on oral meds, recent hemoglobin A1c of 9.9, November 2018: Insulin sliding scale, anticipate hyperglycemia secondary to Medrol, monitor closely Chronic anemia, hemoglobin at baseline past tobacco abuse Awaiting to be transferred to [facility] in [place] Plan of care discussed with patient and also his on the phone All questions answered They are understanding, agreeable, comfortable plan of care Total Time Total Time Spent Total Time Spent (In Minutes): 60 minutes Discharge Plan Discharge Items Patient Disposition: Transfer Acute Care Hospital Reason For Visit: RESP FAILURE, POSS CHF Discharge Diagnosis: Acute on chronic hypoxic respiratory failure Secondary to bilateral pneumonia, possible healthcare associate pneumonia Possible left upper lobe lung abscess Right pleural effusion In the setting of non-small cell lung cancer Activity: As commented below Activity Comment: BEDREST Non-emergency contact: Primary Care Provider Call non-emergency contact if: you have any medication questions Follow-up/Referrals: Yesenia Isidro, [Outside Practitioners] - Diet: Carb Consistent or DM2 and Heart Healthy Addtl Attending Provider Instructions: PLEASE REFER TO [facility]ANYING HOSPITAL DISCHARGE SUMMARY FOR FURTHER DETAILS AND UPDATED MEDICATION LIST. Pending Studies at Discharge: Yes Studies:: PLEASE REFER TO [facility]OMPANYING HOSPITAL DISCHARGE SUMMARY Stand-Alone Forms: My [facility] Skilled Items Patient informed of condition?: Yes DNR: No Discharge Level of Care: Other Communicable Disease: No Discharge Prognosis: Stable Lines: Peripheral IV Urinary Catheter: No Medications and DC Order Prescriptions: New ipratropium bromide 0.02 % Solution 0.5 mg inhalation Q6R 7 Days Qty: 75 RF: 0 levalbuterol HCl 1.25 mg/0.5 mL Solution For Nebulization 1.25 mg inhalation Q6R 7 Days Qty: 30 RF: 0 enoxaparin [Lovenox] 30 mg/0.3 mL Syringe 30 mg subcut QAM 7 Days Qty: 2.1 RF: 0 Novolog Flexpen U-100 Insulin 100 unit/mL (3 mL) Insulin Pen 1 units SC Q6 7 Days Qty: 0.28 RF: 0 Lantus Solostar U-100 Insulin 100 unit/mL (3 mL) Insulin Pen 10 unit subcut BID 7 Days Qty: 1.4 RF: 0 Continued fluconazole 200 mg tablet 200 mg PO DAILY Qty: 14 RF: 0 multivitamin [Daily Multi-Vitamin] tablet 1 tab PO DAILY RF: 0 triamcinolone acetonide [Nasacort] 55 mcg aerosol,spray 2 sprays INTNAS DAILY RF: 0 sulfamethoxazole-trimethoprim 800-160 mg tablet 1 tab PO QPM RF: 0 simvastatin 20 mg tablet 20 mg PO HS RF: 0 simvastatin 20 mg Tablet 20 mg PO HS RF: 0 aspirin 81 mg Tablet,Chewable 81 mg PO HS RF: 0 levothyroxine 100 mcg Capsule 100 mcg PO DAILY RF: 0 Discontinued prednisone 10 mg tablet 30 mg PO DAILY RF: 0 lorazepam 0.5 mg tablet 0.5 mg PO AMPM RF: 0 glipizide 2.5 mg Tablet Extended Release 24hr PO DAILY RF: 0 ipratropium-albuterol 0.5 mg-3 mg(2.5 mg base)/3 mL Solution For Nebulization 3 ml INHALATION TID RF: 0 Discharge Orders: Discharge Order (Routine); Ordered 12/28/18 Ordered By: Corbin Paulino Admission Data Admit Date/Time: 12/27/18 23:54 Attending Provider: Charlie Ruiz Admit Provider: Corbin Paulino Primary Care Provider: PCP,NO Other Providers: Corbin Paulino ; Corbin Mera
[2018-12-28] MEDS ORDERED: methylPREDNISolone 40 MG in SYRINGE 0 ML IV SCH (14:00)
[2018-12-28] MEDS ORDERED: SULFAMETHOXAZOLE/TRIMETHOPRIM DS 800/160MG TAB PO SCH (21:00)
[2018-12-28] MEDS ORDERED: ASPIRIN 81 MG ECTAB PO SCH (21:00)
[2018-12-28] MEDS ORDERED: SIMVASTATIN 20 MG TAB PO SCH ×2 (21:00)
== END 2018-12-28 19:43 | disposition short-term general hospital (02) | DRG 189 ==
LOC: ED 18:36 → 2S 23:54 → SUPCPDRO 23:54 → 2S 12-28 00:54